=== PATIENT | female | born 2000 | race Caucasian/White ===

== ENCOUNTER → 2023-02-19 | Outpatient (CLI) | payer OTHER, SELFPAY ==
--- NOTE | 2023-02-19 08:02 | US_ITS ---
STUDY: SECOND AND THIRD TRIMESTER OBSTETRICAL ULTRASOUND REASON FOR EXAM: Female, 22 years old anatomy LMP: September 17, 2022. TECHNIQUE: Transabdominal and Transvaginal TECHNICAL QUALITY: Adequate. PRIOR ULTRASOUND: None. FINDINGS: There is a single intrauterine fetus. The fetus is in a breech presentation. There is demonstrated cardiac activity with a heart rate of 135 bpm. There is a normal amniotic fluid volume. The largest amniotic fluid pocket measures 5.7 cm. The amniotic fluid index (SUNITA) is within normal limits. The placenta is anterior in location and is not low lying. There are Grade 0 placental changes. The cervix measures 3.3 cm in length. The bilateral adnexal regions are normal. BIOMETRY: BPD: 5.12 cm: 21 weeks, 4 days HC: 20.04 cm: 22 weeks, 1 days AC: 18.25 cm: 23 weeks, 1 days FL: 3.88 cm: 22 weeks, 3 days CI: 71% FL/BPD: 76% FL/HC: FL/AC: 21% HC/AC: 1.1 age by current US: 22 weeks, 1 days. THEODORA by current US: June 24, 2023. Estimated weight: 524 grams, +/- 79 grams, 70 %. Age by LMP: 22 weeks, 1 days. THEODORA by LMP: June 24, 2023. ANATOMY: Gender: Male Cranium: Normal lateral ventricles. Normal choroid plexus. Normal cerebellum. Normal cisterna magna. Normal face, nose and lips. Chest: Normal 4-chamber heart. Abdomen/Pelvis: Normal diaphragm. Normal stomach. Normal abdominal wall. Normal cord insertion. Normal 3 vessel cord. Normal kidneys. Normal bladder. Spine: Normal cervical spine. Normal thoracic spine. Normal lumbar spine. Normal sacrum. Extremities: Normal bilateral upper extremities. Normal bilateral lower extremities. US/OB Anatomy Scan IMPRESSION: Single live uterine gestation with a mean gestational age of 22 weeks and 1 day. Electronically Signed: Leland Solares MD at 10:35 EST ,
== END | disposition home or self-care (01) ==
LOC: US 08:01
PROVIDERS: Referring Provider Obstetrics & Gynecology; Visit Provider Obstetrics & Gynecology
DX: Z34.00 Encounter for supervision of normal first pregnancy, unspecified trimester (principal)
CPT/HCPCS: 76805; 76817

== ENCOUNTER → 2023-04-02 | Outpatient (CLI) | payer OTHER, SELFPAY ==
[2023-04-02 10:40] LABS: Absolute Lymphocyte Count 1.53 X10^3/uL (0.83-4.51); Absolute Neutrophil Count 9.2 X10^3/uL (2.0-7.7); Basophil# 0.04 X10^3/uL; Basophil% 0.3 % (0-1); Eosinophil# 0.11 X10^3/uL; Eosinophils% 0.9 % (0-5); Hematocrit 35.3 % (37-47); Lymphocyte # 1.53 X10^3/ul (0.83-4.51); Lymphocyte % 12.8 % (19-41); Mean Corpuscular Hgb 32.3 pg (27.0-32.0); Mean Corpuscular Volume 95.1 fL (81-99); Mean Platelet Vol. 8.2 fl (6.2-12.0); Monocyte# 0.93 X10^3/uL; Monocyte% 7.8 % (0-10); NRBC Flagged by Analyzer 0 % (0-5); Neutrophil # 9.24 X10^3/uL (2.7-7.7); Neutrophil % 77.3 % (47-70); Platelet Count 225 K/mm3 (150-450); RBC Distribution Width CV 12.6 % (11.6-14.6); RBC Distribution Width SD 43.7 fl (35.1-43.9); Red Blood Count 3.71 M/mm3 (4.2-5.4)
[2023-04-02 10:49] LABS: Glucose Challenge Gest 1H 50g 91 mg/dL (70-140)
[2023-04-02 11:36] LABS: HIV - WCH Non-Reactive (Nonreactive); Syphilis Antibodies Non-reactive
== END | disposition home or self-care (01) ==
LOC: PAVLAB 10:18
PROVIDERS: Referring Provider Obstetrics & Gynecology; Visit Provider Obstetrics & Gynecology
DX: Z34.00 Encounter for supervision of normal first pregnancy, unspecified trimester (principal)
CPT/HCPCS: 36415; 82950; 85025; 86703; 86780; 86850; 86900; 86901

== ENCOUNTER → 2023-04-16 | Outpatient (CLI) | payer OTHER, SELFPAY ==
[2023-04-16 13:01] LABS: Hepatitis B Surface Antigen Non-Reactive (Nonreactive); Hepatitis C Antibody Non-Reactive (Nonreactive); Rubella IgG Reactive (Nonreactive)
== END | disposition home or self-care (01) ==
LOC: PAVLAB 10:52
PROVIDERS: Referring Provider Nurse Practitioner Women's Health; Visit Provider Nurse Practitioner Women's Health
DX: Z34.00 Encounter for supervision of normal first pregnancy, unspecified trimester (principal)
CPT/HCPCS: 36415; 86762; 86803; 87340

== ENCOUNTER → 2023-05-29 | Outpatient (CLI) | payer OTHER, SELFPAY ==
--- OUTSIDE RECORDS SUMMARY | 2023-05-29 11:33 | XMS RPT_ITS | CCD ---
Author Name Unknown Address [address] [facility] [address] [place] [address] Organization [facility] Care Team Providers Care Broker Associate Name Role Phone Unavailable Primary Care Provider UnavailMARYBEL Rincon Attending Unavailable MARYBEL SUGGS Referring Unavailable STEPHAN DUGGAN Attending Unavailable ANA TORRE Attending Unavailable Medications Current Medications Medication Drug Class(es) Dates Sig (Normalized) Sig (Original) MV-Min-Fe Fum-FA-DHA ( 1 PO) (3 sources) MV-Min- Fe Fum-FA-DHA ( 1 PO) Take by mouth. 0 Active Problems Active Problems Problem Classification Problem Date Documented Da te Episodic/Chronic Menstrual disorders (3 sources) Amenorrhea; Translations: [Amenorrhea, unspecified] Onset: 10-21-2022 10-21-2022 Chronic Other complications of (1 source) Nausea and vomiting; Translations: [Vomiting of , unspecified] 11-21-2022 Episodic Unclassified (2 sources) OB Reminders Onset: 11-22-2022 11-22-2022 Unclassified (2 sources) Patient Stated Goal Onset: 11-22-2022 11-22-2022 Past or Other Problems Problem Classification Problem Date Documented Da te Episodic/Chronic Mood disorders (2 sources) Mood disorders Onset: 11-22-2022 11-22-2022 Other and delivery including normal (12 sources) Gestational age unknown ; Translations: [Encounter for supervision of normal , unspecified, unspecified trimester] Onset: 11-21-2022 10-21-2022 Episodic Other screening for suspected conditions (not mental disorders or infectious disease) (3 sources) Patient encounter status; Translations: [Encounter for screening for other disorder] Onset: 12-19-2022 12-19-2022 Episodic Residual codes; unclassified (2 sources) Gestation period, 10 weeks; Translations: [10 weeks gestation of ] Onset: 11-21-2022 11-21-2022 Episodic Residual codes; unclassified (2 sources) Gestation period, 13 weeks; Translations: [13 weeks gestation of ] Onset: 12-19-2022 12-19-2022 Episodic Residual codes; unclassified (1 source) 13 weeks gestation of ; Translations: [13 weeks gestation of ] Onset: 12-19-2022 Episodic Residual codes; unclassified (1 source) 10 weeks gestation of ; Translations: [10 weeks gestation of ] Onset: 11-21-2022 Episodic Results Test Name Value Interpretation Reference Range Facil ity Vital Signs Date Time Vital Sign Value Performing Clinician Kalyani lity 12-19-2022 15:28-0400 Body mass index (BMI) [Ratio] 24.56 kg/m2 Stephan Saffell EARTH SCIENCE PROFESSOR - IT ARCHITECTURE CONSULTANT Work Phone: [employer] [facility] 12-19-2022 15:28-0400 Body weight 66.95 kg Stephan Saffell EARTH SCIENCE PROFESSOR - IT ARCHITECTURE CONSULTANT Work Phone: [employer] [facility] 12-19-2022 15:28-0400 Diastolic blood pressure 65 mm[Hg] Stephan Saffell EARTH SCIENCE PROFESSOR - IT ARCHITECTURE CONSULTANT Work Phone: [employer] [facility] 12-19-2022 15:28-0400 Heart rate 75 /min Stephan Saffell EARTH SCIENCE PROFESSOR - IT ARCHITECTURE CONSULTANT Work Phone: [employer] [facility] 12-19-2022 15:28-0400 Systolic blood pressure 124 mm[Hg] Stephan Mercantilall EARTH SCIENCE PROFESSOR - IT ARCHITECTURE CONSULTANT Work Phone: [employer] [facility] 11-21-2022 13:54-0400 Body height 165.1 cm Ana [place] PA Work Phone: [employer] [facility] 11-21-2022 13:37-0400 Body mass index (BMI) [Ratio] 23.3 kg/m2 Ana [place] PA Work Phone: [employer] [facility] 11-21-2022 13:37-0400 Body weight 63.5 kg Ana [place] PA Work Phone: [facility] 11-21-2022 13:37-0400 Diastolic blood pressure 60 mm[Hg] Ana Torre PA Work Phone: [facility] 11-21-2022 13:37-0400 Heart rate 60 /min Ana Vaughank PA Work Phone: [facility] 11-21-2022 13:37-0400 Systolic blood pressure 108 mm[Hg] Ana Torre PA Work Phone: [facility] Encounters Encounter Date Encounter Type Care Provider Facility Start: 04-02-2023 Telephone encounter Stephan moise EARTH SCIENCE PROFESSOR - IT ARCHITECTURE CONSULTANT Work Phone: [facility] Procedures Date Procedure Procedure Detail Performing Clinician Start: 11-22-2022 Adult depression scr eening assessment Stephan Duggan EARTH SCIENCE PROFESSOR - IT ARCHITECTURE CONSULTANT Work Phone: Start: 11-21-2022 Microscopic observat ion [Identifier] in Cervix by Cyto stain Stephan Duggan EARTH SCIENCE PROFESSOR - IT ARCHITECTURE CONSULTANT Work Phone: Plan of Treatment Date Care Activity Detail Author Start: 2050 Zoster Vaccines (1 of 2) Zoster Vacc sarah (1 of 2) [facility] Start: 11-21-2025 Screening for malign ant neoplasm of cervix Pap Smear [facility] Start: 11-23-2023 Depression Screening Depression Scre ening [facility] Start: 11-22-2023 Screening for Chlamy peterson trachomatis Chlamydia and Gonorrhea Screening [facility] Start: 11-19-2023 DTaP/Tdap/Td Vaccine s (7 - Td or Tdap) DTaP/Tdap/Td Vaccines (7 - Td or Tdap) [facility] Start: 01-29-2023 End: 01-29-2023 Patient encounter procedure [facility] Start: 01-06-2023 End: 01-06-2023 Patient encounter procedure 01/06/2023 3:00 PM EDT Routine [facility] [address] [place] [address] Saffell, Stephan, EARTH SCIENCE PROFESSOR - IT ARCHITECTURE CONSULTANT [address] [place] [address] [facility] Start: 12-19-2022 End: 12-19-2022 Patient encounter procedure 12/19/2022 3:20 PM EDT Routine [facility] [address] [place] [address] Stephan Duggan APRN - IT ARCHITECTURE CONSULTANT [address] [place] [address] [facility] Start: 12-19-2022 End: 12-20-2023 US for US OB 14+ weeks anatomy scan Imaging Routine Encounter for routine screening for malformation using ultrasonics Expected: 12/19/2022, Expires: 12/20/2023 [facility] Work Phone: Immunizations Immunization Date Immunization Notes Care Provider Fa [facility] 02-22-2020 influenza virus vacc ine, unspecified formulation Marybel GODINEZ Work Phone: [facility] Payers Date Payer Category Payer Unknown [employer] [id number] 2022-Present [address] [place] [address] Commercial [id number] 2022 Unknown [id number] 2022 Private Health Insurance ASHLEY ZHENG [id number] 2022-Present [address] [place] [address] Commercial [id number] 2022 Private Health Insurance [id number] Social History Date Type Detail Facility Start: 10-21-2022 Tobacco smoking status NHIS Never sm oked tobacco [facility] Start: 10-21-2022 Tobacco use and exposure Smokeless t obacco non-user [facility] Start: 10-21-2022 End: 12-19-2022 Alcohol intake Lifetime non-drinker (finding) [facility] Start: 10-21-2022 End: 12-19-2022 History of Social function [facility] Start: 10-21-2022 End: 12-19-2022 Tobacco use panel [facility] Start: 2000 Sex Assigned At Not on file [facility] Start: 10-01-2022 [facility] Start: 11-11-2022 End: 12-19-2022 Exposure to SARS-CoV-2 (event) Not sure [facility] Goals Date Patient Goal Desired Activity /State Personal health goal Clinical Notes 03-12-2021 to 04-02-2023 Telephone Encounter - Black Perales MA - 04/02/2023 3:20 PM ESTTelephone Encounter - Black Preales MA - 04/02/2023 3:20 PM ESTTelephone Encounter - Jael Marley - 04/02/2023 2:52 PM EST Note Date & Type Note Facility 04-02-2023 Telephone encounter Note Lab results refaxed. [facility] 04-02-2023 Miscellaneous Notes Lab results refaxed. Name of caller: Archana Contact phone number: [phone] Relationship to Patient: [facility] Provider: Stephan Duggan Practice: [facility] Chief Complaint/Reason for Call: Archana states records were rec'd for pt but they need actual lab results. Please fax to [phone] Best time of day caller can be reached: Any Patient advised that office/PCP has 24-48 business hours to return their call: Yes documented in this encounter [facility] 04-02-2023 Telephone encounter Note Name of caller: Archana Contact phone number: [phone] Relationship to Patient: [facility] Provider: Stephan Duggan Practice: [facility] Chief Complaint/Reason for Call: Archana states records were rec'd for pt but they need actual lab results. Please fax to [phone] Best time of day caller can be reached: Any Patient advised that office/PCP has 24-48 business hours to return their call: Yes [facility] 12-19-2022 Evaluation + Plan note Associated Problem(s): care, antepartum Advised patient to contact the office with any vaginal bleeding, pelvic pain or N/V. RH+ Reviewed labs Did not have genetic testing done DAWNA 3 weeks [facility] 12-19-2022 Miscellaneous Notes Associated Problem(s): care, antepartum Advised patient to contact the office with any vaginal bleeding, pelvic pain or N/V. RH+ Reviewed labs Did not have genetic testing done DAWNA 3 weeks documented in this encounter [facility] 12-19-2022 History of Presen t illness Narrative PLAN: care, antepartum Advised patient to contact the office with any vaginal bleeding, pelvic pain or N/V. RH+ Reviewed labs Did not have genetic testing done DAWNA 3 weeks ASSESSESMENT: Diagnosis Plan 1. care in second trimester 2. Encounter for routine screening for malformation using ultrasonics US OB 14+ weeks anatomy scan US OB transvaginal 3. 13 weeks gestation of She is here for 13w2d OB visit. Denies cramping, leaking of fluid, or bleeding. Noticed skin tag on breast. No pain, drainage skin changes or signs of infection PHYSICAL EXAM: BP 124/65 Pulse 75 Wt 147 lb 9.6 oz (67 kg) LMP 09/17/2022 (Exact Date) BMI 24.56 kg/m I have reviewed her pertinent history, lab results, medications and problem list. See episode for any changes. Well appearing, Alert & oriented Skin warm & dry Right breast with small probable skin tag noted at 6:00 on areola. Normal range of motion in all extremities. Abdomen soft nontender Normal resp effort HOLDEN Winn CNP 12/19/22 Follow up in about 3 weeks (around 01/09/2023) for DAWNA. documented in this encounter [facility] 11-21-2022 History of Presen t illness Narrative HISTORY OF PRESENT ILLNESS: Presents today for initial OB appointment at 10w1d, Patient's last menstrual period was 09/17/2022 (exact date)., dating ultrasound completed and preliminary result reviewed with patient. D&V ultrasound results: Single, live IUP, 10 w 1 d by ultrasound. Cardiac activity and movement are present. This is consistent with the EDC of 06/24/23. Probable right corpus luteum. 2.2 x 1.8 x 1.7 cm Follow up as clinically indicated. Patient is scheduled to see Ana AVILES following ultrasound. [id number] Varicella or vaccinated for varicella as a child: yes. Cats: yes. If yes, litter box precautions given. Desires tubal ligation: no. Plans to breastfeed. 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 Pt desires Noninvasive Testing (NIPT): yes Pt desires sex with testing: yes Carrier Screening option reviewed: Pt desires Carrier Screening: no Indications for Baby Aspirin High Risk Indication: [] History of Preeclampsia [] Multifetal gestation [] Chronic HTN [] Pregestational Type 1 or 2 Diabetes [] Renal Disease [] Autoimmune Disease (i.e., SLE, APLS) Two Moderate Risk Indication: [x] Nulliparity [] Obesity (BMI > 30) [] Family history of preeclampsia (ie, mother or sister) [] Race [] Low SES [] Age 35 years or older [] Personal history factors (eg, low weight or small for gestational age, previous adverse outcome, >10-year interval) [] In vitro fertilization ASA prescribed: No, Not Indicated Body mass index is 23.3 kg/m . If BMI is 30 or over, history of gestational diabetes, or insulin resistance then early GCT ordered. REVIEW OF SYSTEMS: Constitutional: Negative for fever, positive for fatigue Respiratory: Negative for shortness of breath Breast: positive breast tenderness Cardiovascular: Negative for chest pain GI: positive for nausea and vomiting negative for abdominal pain, constipation, and diarrhea : Denies vaginal bleeding, discharge, LOF. Denies dysuria. MEDICATIONS: Current Outpatient Medications Medication Sig Dispense Refill MV-Min-Fe Fum-FA-DHA ( 1 PO) Take by mouth. No current facility-administered medications for this visit. ALLERGIES: Patient has no known allergies. OB History Para Term AB Living 1 0 0 0 0 0 SAB IAB Ectopic Multiple Live Births 0 0 0 0 0 # Outcome Date GA Lbr Zurdo/2nd Weight Sex Delivery Anes PTL Lv 1 Current History reviewed. No pertinent past medical history. History reviewed. No pertinent surgical history. Family History Problem Relation Name Age of Onset Diabetes Paternal Grandfather Ovarian cancer Paternal Grandmother Breast cancer Neg Hx Colon cancer Neg Hx Social History Socioeconomic History Marital status: Spouse name: Not on file Number of children: Not on file Years of education: Not on file Highest education level: Not on file Occupational History Not on file Tobacco Use Smoking status: Never Smokeless tobacco: Never Vaping Use Vaping Use: Never used Substance and Sexual Activity Alcohol use: Never Drug use: Never Sexual activity: Not on file Other Topics Concern Not on file Social History Narrative Not on file Social Determinants of Health Financial Resource Strain: Not on file Food Insecurity: Not on file Transportation Needs: Not on file Physical Activity: Not on file Stress: Not on file Social Connections: Not on file Intimate Partner Violence: Not on file Housing Stability: Not on file PHYSICAL EXAM: Vital Signs: BP 108/60 Pulse 60 Ht 5' 5 (1.651 m) Wt 140 lb (63.5 kg) BMI 23.30 kg/m CONSTITUTIONAL: Oriented to person, place and time. Patient appears well-developed and well nourished. PSYCHIATRIC: Normal mood and affect. Behavior is normal. NEUROLOGICAL: No gross motor or sensory deficits noted. NECK: No thyromegaly, supple. HEART: Regular rate and rhythm LUNGS: Clear to auscultation, no crackles or wheezes, normal respiratory effort. BREASTS: Normal, no masses, tenderness or skin changes B/L SKIN: Warm and dry ABDOMEN: Soft, non-tender, non-distended. No rebound or guarding. LYMPH NODES: No lymphadenopathy in neck, axilla and groin. EXTREMITIES: No edema. EXTERNAL GENITALIA: Normal. VAGINA: Normal, no lesions. clear and thin noted CERVIX: Normal, no CMT UTERUS: gravid 10 weeks size, non-tender ADNEXA: No tenderness, no masses noted URETHRAL MEATUS: Normal, no irritation present. BLADDER: Non tender. ASSESSMENT: Patient Active Problem List Diagnosis Date Noted care, first trimester 11/21/2022 Priority: Medium Overview Note: 1.Datin06/24/2023, by Last Menstrual Period 2.Blood type: 3. Aneuploidy screen: 4.Carrier screen: 5.Anatomy USN: 6.Flu shot: 7.Tdap: 8.PPBC: 9. COVID vaccine: DIAGNOSIS: Carlitos was seen today for initial visit. Diagnoses and all orders for this visit: Nausea and vomiting in (Primary) care, first trimester - Pap Smear - RPR; Future - Hepatitis B surface antigen; Future - Hemoglobinopathy evaluation; Future - Urine culture - HIV-1 and HIV-2 Antigen-Antibody Screen; Future - CBC; Future - Hepatitis C antibody; Future - Chlamydia/Gonorrhea - RPR - Hepatitis B surface antigen - Hemoglobinopathy evaluation - HIV-1 and HIV-2 Antigen-Antibody Screen - CBC - Hepatitis C antibody 10 weeks gestation of - Pap Smear - RPR; Future - Hepatitis B surface antigen; Future - Hemoglobinopathy evaluation; Future - Urine culture - HIV-1 and HIV-2 Antigen-Antibody Screen; Future - CBC; Future - Hepatitis C antibody; Future - Chlamydia/Gonorrhea - RPR - Hepatitis B surface antigen - Hemoglobinopathy evaluation - HIV-1 and HIV-2 Antigen-Antibody Screen - CBC - Hepatitis C antibody PLAN: New OB labs and cultures ordered. Lab Locations reviewed. [facility] Services guide given. New OB education given on AVS including: Medication list, food safety information, and OB Calendar. Early GCT candidate: no All questions were answered. Follow up in about 4 weeks (around 12/19/2022) for STEFAN Mckinney Patient was seen with total face to face time of 25 minutes. More than 50% of this visit was counseling and education regarding her diagnoses and chief complaint. documented in this encounter [facility] 11-21-2022 Instructions STEFAN Krause - 11/21/2022 1:30 PM EDT Obstetrical Calendar Weeks Gestation: Discussion and Testing 4-8 weeks - Visit with provider to establish hcg blood levels and order ultrasound. 6-13 Weeks - Dating and Viability Ultrasound and Visit with provider to discuss US results. 10-13 weeks - Initial OB intake and physical with a Industrial Maintenance Mechanic or Nurse Practitioner. Obtain complete medical, genetic and obstetrical history blood work ordered education Discuss testing options: 1st trimester screening (provides a more accurate assessment of a woman s risk for carrying a baby with Down Syndrome, Trisomy 13 and Trisomy 18. Carrier Screening for Cystic Fibrosis, Spinal Muscular Atrophy or Fragile x. AFP for Neural Tube Defect. Other tests if appropriate due to risk factors. Discuss Physician and Nurse Industrial Maintenance Mechanic options Discuss hospital for delivery 10-14 Weeks - Visit with OB Provider Review Results of Labs Discuss 1st Trimester Screening or Free Cell DNA if you wish to pursue Discuss indications or need for MFM referral if High Risk, or if need for Amniocentesis or CVS (Chorionic villus sampling) test to diagnose chromosomal abnormalities At Each visit - Check Blood pressure, Check urine, check weight and heart tones as indicated 12-16 weeks - Visit with OB Provider Discuss 2nd trimester screening if desired Check blood pressure, urine, weight and heart tones Review OB provider options Schedule anatomy US for 18-20 weeks 18-20 weeks - Anatomy US and Visit with Provider Check weight, blood pressure and urine Listen to heart beat and check uterine size Review results of anatomy US 22-24 weeks - Visit with OB Provider Check weight, blood pressure and urine Listen to heart beat and check uterine size Discuss 1 hour glucose test for gestational diabetes Order blood work for anemia and glucose test to be done around 26-28 weeks Order Antibody screen and rhogam IF Rh negative blood type 26-28 weeks - Visit with OB Provider Check weight, blood pressure and urine Listen to heart beat and check uterine size Review results of glucose test and anemia test if done Discuss plans, preregistration, choosing paving inspector, taking childbirth classes 30 - 36 weeks - Visits with OB provider every 2 weeks Check weight, blood pressure and urine Listen to heart beat and check uterine size High risk testing, if needed, will begin weekly - Please schedule all of theses ahead of time. Discuss circumcision, breast feeding, preregistration. Discuss plans, consider CNM or physician for delivery. 36-40 weeks - Visits with Ob provider every week Check weight, blood pressure and urine Listen to heart beat and check uterine size Obtain vaginal/rectal culture for Group B Strep Cervical exam 41 weeks - Visit with OB provider Discuss option for post term testing with Non-Stress test and SUNITA Discuss and schedule induction of labor prior to 42 weeks Food Safety in The following tips will help keep your food safe from harmful bacteria. For more information, visit foodsafety.gov. Keep things clean Wash your hands well before and after handling food. Always wash your hands after using the bathroom, changing diapers or handling pets. Wash fruits and vegetables under running water before eating. Wash utensils, dishes, cutting boards, counters and sinks with hot, soapy water after they come in contact with raw meat, poultry, seafood, eggs or unwashed fresh produce. Clean up spills in your refrigerator right away. Look at expiration dates on containers. Once a week throw away food that should no longer be eaten. Keep things Keep raw meat, poultry and seafood separate from other items in your grocery cart and refrigerator. Put uncooked meat, poultry and fish in sealed containers or plastic bags when storing them in the refrigerator. Use one cutting board for raw meats and a different one for fruits and vegetables. Place cooked meat, poultry and seafood on a clean plate. Do not reuse a plate that held the raw food. Keep things chilled Keep your refrigerator at 40 F or below and your freezer at zero F or below. Refrigerate food quickly. Cold temperatures keep most harmful bacteria from multiplying. Refrigerate perishable foods within two hours of purchase. (Refrigerate within one hour if the temperature is more than 90 F.) Refrigerate or freeze prepared foods and leftovers within two hours (within one hour if the temperature is more than 90 F). Use shallow containers for quicker cooling. Don't overpack the refrigerator; leave room for the cold air to circulate. Never thaw foods on the counter. Thaw foods in the refrigerator, in cold water, or in a microwave. Cook things well Use a clean, quick-read food thermometer to determine the temperature of foods. Cook foods until they have reached the proper temperature: roast beef, steaks, pork chops or roast to at least 145 F ground beef to at least 160 F ground turkey, chicken breasts or whole poultry to at least 165 F fish until it's opaque and flakes easily with a fork (145 F) eggs until the yolks and whites are firm egg dishes to 160 F Reheat leftovers to 165 F. Other tips to prevent food-related illness Listeria is a kind of bacteria that can contaminate foods and cause an infection called listeriosis. This is a serious illness that can cause premature labor or to a developing or baby. To reduce your risk of listeriosis: Make sure all milk and milk products are pasteurized. Do not eat unpasteurized soft cheeses such as feta, Brie, Camembert, blue-veined cheeses and [place] Islander-style cheeses. Limit deli foods like prepared salads or cheeses. Reheat hot dogs, lunch meats and deli meats until they are steaming hot. Do not eat refrigerated p t or meat spreads. (Canned or shelf-stable spreads are fine.) Only eat refrigerated smoked seafood as an ingredient in a cooked dish, such as a casserole. Reheat pre-cooked, take-home meals to 165 F. Choosing fish wisely Fish is a good source of protein, contains fatty acids, and is low in saturated fat. However, any fish (store-bought or fresh-caught) could contain contaminants such as mercury or PCBs that can harm a developing baby. It's best to vary the kind of fish you eat and limit the amount of fish you eat to one to two meals a week. The amount of fish in a meal depends on your body weight. If you weigh 150 pounds, you could safely eat one-half pound (8 ounces) of fish (precooked weight). To adjust the amount of fish, subtract or add one ounce of fish for every 20 pounds of body weight: If you weigh 130 pounds, eat 7 ounces of fish. If you weigh 150 pounds, eat 8 ounces of fish. If you weigh 170 pounds, eat 9 ounces of fish. Tips to help you choose fish Avoid brad mackerel, swordfish, tilefish, marlin, orange roughy, and shark. These are large, salt-water fish most likely to have high levels of mercury. Avoid eating these locally caught fish: walleye larger than 20 inches, northern pike larger than 30 inches, and all muskellunge (muskies). Limit eating canned albacore tuna to one 6-ounce meal a month. Light tuna is a smaller fish and less likely to have high levels of mercury. Eat up to two meals a week of farm-raised or wild salmon from the [place] or [place], not from the [place]. Avoid raw fish, sushi and sashimi because it could contain harmful bacteria. Caffeine We don t know a lot about the effects of caffeine during on you and your baby. So it s best to limit the amount you get each day. If you re , limit caffeine to 200 milligrams each day. This is about the amount in 1 8-ounce cups of coffee or one 12-ounce cup of coffee. If you re , limit caffeine to no more than two cups of coffee a day. F Information from June Genetic Screening Tests What is genetic testing? genetic testing gives [id number] information about whether their fetus has certain genetic disorders. What are genetic disorders? Genetic disorders are caused by changes in a person s genes or chromosomes. Aneuploidy is a condition in which there are missing or extra chromosomes. In a trisomy, there is an extra chromosome. In a monosomy, a chromosome is missing. Inherited disorders are caused by changes in genes called mutations. Inherited disorders include sickle cell disease, cystic fibrosis, Erickson-Sachs disease, and many others. In most cases, both parents must carry the same gene to have an affected child. What are genetic screening tests? These tests can tell you the chances that your fetus has an aneuploidy and a few additional disorders. This FAQ focuses on these tests. What are the different types of genetic screening tests? Screening tests can tell you your risk of having a baby with certain disorders. They include carrier screening and genetic screening tests: Carrier screening is done on parents (or those just thinking about becoming parents) using a blood sample or tissue sample swabbed from inside the cheek. These tests are used to find out whether a person carries a gene for certain inherited disorders. Carrier screening can be done before or during . genetic screening tests of the woman s blood and findings from ultrasound exams can screen the fetus for aneuploidy; defects of the brain and spine called neural tube defects; and some defects of the abdomen, heart, and facial features. This focuses on these tests. They include first-trimester screening and second-trimester screening What is first-trimester screening? Aneupoidy screening or NIPT (non-invasive testing) is done with maternal blood taken sometime after 12weeks 4 days. This test helps determine the risk for trisomy 21, trisomy 13 and trisomy 18. It also detects abnormalities of the sex chromosomes such as monosomy X and Turners syndrome. What do the different results of screening tests mean? Results of blood screening tests for aneuploidy are reported as the level of risk that the disorder might be present: A positive screening test result for aneuploidy means that your fetus is at higher risk of having the disorder compared with the general population. It does not mean that your fetus definitely has the disorder. A negative result means that your fetus is at lower risk of having the disorder compared with the general population. It does not rule out the possibility that your fetus has the disorder. What should I consider when deciding whether to have genetic testing? It is your choice whether to have testing. Your personal beliefs and values are important factors in the decision about testing. It can be helpful to think about how you would use the results of screening tests in your care. Remember that a positive screening test tells you only that you are at higher risk of having a baby with Down syndrome or another aneuploidy. A diagnostic test should be done if you want to know a more certain result. Some parents want to know beforehand that their baby will be born with a genetic disorder. This knowledge gives parents time to learn about the disorder and plan for the medical care that the child may need. Some parents may decide to end the in certain situations. Other parents do not want to know this information before the child is born. In this case, you may decide not to have follow-up diagnostic testing if a screening test result is positive. Or you may decide not to have any testing at all. There is no right or wrong answer. Glossary Amniocentesis: A procedure in which a needle is used to withdraw and test a small amount of amniotic fluid and cells from the sac surrounding the fetus. Aneuploidy: Having an abnormal number of chromosomes. Carrier Screening: A test done on a person without signs or symptoms to find out whether he or she carries a gene for a genetic disorder. Chorionic Villus Sampling (CVS): A procedure in which a small sample of cells is taken from the placenta and tested. Cystic Fibrosis: An inherited disorder that causes problems in digestion and breathing. Down Syndrome: A genetic disorder that causes abnormal features of the face and body, medical problems such as heart defects, and intellectual disability. Most cases of Down syndrome are caused by an extra chromosome 21 (trisomy 21). Many children with Down syndrome live to adulthood. Monosomy: A condition in which there is a missing chromosome. Neural Tube Defects: defects that result from incomplete development of the brain, spinal cord, or their coverings. Nuchal Translucency Screening: A test in which the size of a collection of fluid at the back of the neck is measured by ultrasound to screen for certain defects, such as Down syndrome, trisomy 18, or heart defects. Screening Tests: Tests that look for possible signs of disease in people who do not have symptoms. Sickle Cell Disease: An inherited disorder in which red blood cells have a crescent shape, causing chronic anemia and episodes of pain. It occurs most often in Americans. Erickson-Sachs Disease: An inherited defect that causes intellectual disability, blindness, seizures, and , usually by age 5 years. It most commonly affects people of [place] and [place], [place], and [place] descent, but it can occur in anyone. Trisomy 13 (Patau Syndrome): A chromosomal disorder that causes serious problems with the brain and heart as well as extra fingers and toes, cleft palate and lip, and other defects. Most infants with trisomy 13 within the first year of life. Trisomy 18 (Dueñas Syndrome): A chromosomal disorder that causes severe intellectual disability and serious physical problems such as a small head, heart defects, and deafness. Most of those affected with trisomy 18 before or within the first month of life. Copyright October 2016 by the [employer] ========= Panorama NIPT Screen Information As an expectant parent, you may want to learn everything you can about the health of your baby. The Panorama Screen checks for the most common chromosomal disorders, such as Down syndrome, Trisomy 18 and Trisomy 13 that could affect your baby s health. This noninvasive test requires only a blood draw, so it s safe for both mom and baby. This test looks at DNA from the that crosses into the mother s blood to screen for chromosomal disorders that can cause serious defects, intellectual disability, or other health problems. Any baby can be born with a chromosome disorder, which is usually caused by a random error of cell division very early in . As women get older, the chance of having a baby with a chromosome disorder goes up. However, young women can have babies with these conditions. How does noninvasive testing work? DNA is the blueprint of life. It carries all of the genetic information needed for our bodies to function. A section of DNA with a specific job is called a gene. DNA is packaged into bundles called chromosomes. Healthy humans have 23 pairs of chromosomes. Any more or less can lead to problems. DNA from the placenta naturally crosses into the mother s bloodstream as a progresses. For the test, a small sample of your blood is drawn and the DNA is analyzed to check for certain chromosomal disorders, which can cause serious defects, intellectual disability, or other health problems in the baby. What conditions can this test detect? Down syndrome (trisomy 21) is caused by an extra copy of chromosome 21. It affects about 1 in 700 newborns,and is the most common genetic cause of mild to moderate intellectual disability. Children with trisomy 21 commonly have typical facial features, and a higher risk for certain health problems, including heart defects, other defects, and hearing and vision problems. Dueñas syndrome (trisomy 18) is caused by an extra copy of chromosome 18. It affects about 1 in 5,000 newborns. Children with trisomy 18 may have severe intellectual disability along with serious defects of the heart, brain, and other organs and usually survive less than one year. It is common for pregnancies with trisomy 18 to end in miscarriage or stillbirth. Patau syndrome (trisomy 13) is caused by an extra copy of chromosome 13. It affects about 1 in 16,000 newborns. Children with trisomy 13 may have severe intellectual disability and many serious defects (heart defects, extra fingers, cleft lip and palate, brain and abdominal wall defects) and usually survive less than one year. It is common for pregnancies with trisomy 13 to end in miscarriage or stillbirth. Bermudez syndrome (monosomy X)* is caused by a missing X chromosome in females. It affects about 1 in 2,000 female newborns. Girls with monosomy X commonly have heart defects, growth delays, infertility and may have minor learning difficulties. It is common for pregnancies with monosomy X to end in miscarriage or stillbirth. Klinefelter syndrome (XXY)* is caused by an extra X chromosome in males. It affects between 1 in 500 and 1 in 1,000 males. Children with Klinefelter syndrome commonly have delayed or absent puberty, learning difficulties, and tall stature. Most males with Klinefelter syndrome are infertile. XYY syndrome or XXX syndrome* are caused by an extra Y chromosome in males (XYY) or an extra X chromosome in females (XXX). It affects about 1 in 1,000 newborns. Children with XYY syndrome can have tall stature and an increased risk for learning difficulties or delayed motor skills. Fertility is not usually affected and some individuals have no symptoms at all. DiGeorge syndrome (22q11.2 deletion) is caused by a small missing piece of chromosome 22. It affects from 1 in 2,000 to 1 in 4,000 newborns, and is often not diagnosed for years. It results in poor development in several body systems, and can include growth delays, feeding problems, congenital heart disease, gastrointestinal difficulties, breathing concerns, immune deficiencies, and many other issues. Early diagnosis is the richardson to properly addressing the issues. * May be included in the test. Cannot be evaluated in twin pregnancies. screening helps you prepare for life While most babies are born healthy, some will be born with a chromosomal disorder. Knowing about the health of the baby during allows you to make the most informed choices for your family. This information can help guide the management of the , and could also give you critical time to prepare--physically, financially, and emotionally--for the of a child with extra needs. Carrier Screening What is carrier screening? Carrier screening is a type of genetic test that can tell you whether you carry a gene for certain genetic disorders. When it is done before or during , it allows you to find out the chances of having a child with a genetic disorder. What is a carrier? For some genetic disorders, it takes two genes for a person to have the disorder. A carrier is a person who has only one gene for a disorder. Carriers usually do not have symptoms or have only mild symptoms. Because they often do not know that they have a gene for a disorder, they can pass the gene on to their children. What are the chances of having a child with a genetic disorder? If both parents are carriers of a recessive gene for a disorder, there is a 25% (1-in-4) chance that their children will get the gene from each parent and will have the disorder. There is a 50% (1-in-2) chance that the children will be carriers of the disorder--just like the carrier parents. If only one parent is a carrier, there is a 50% (1-in-2) chance that the child will be a carrier of the disorder. How is carrier screening done? Carrier screening involves testing a sample of blood, saliva, or tissue from the inside of the cheek. Test results can be negative (you do not have the gene) or positive (you do have the gene). Typically, the partner who is most likely to be a carrier is tested first. If test results show that the first partner is not a carrier, then no additional testing is needed. If test results show that the first partner is a carrier, the other partner is tested. Once you have had a carrier screening test for a specific disorder, you do not need to be tested again for that disorder. When hard candy batch mixer screening be done? Some people decide to have carrier screening before having children. Carrier screening also can be done during . Getting tested before gives you a greater range of options and more time to make decisions. Do I have to have carrier screening? Carrier screening is a voluntary decision. You can choose to have carrier screening, or you can choose not to. There is no right or wrong choice. What carrier screening tests are available? We offer a carrier screening panel for 14 diseases. This test is called Horizon If you re an expectant parent, or thinking about starting a family, you probably want to do everything you can to prepare. This test provides a closer look at your genes, to see if you are at risk of passing a hereditary genetic disorder to your child. The Panel checks for carrier status of three of the most common genetic disorders that can cause serious health problems, intellectual disability, or a shorter life. How accurate is carrier screening? No test is perfect. In a small number of cases, test results can be wrong. A negative test result when you have a gene for the disorder tested is called a false-negative result. A positive test result when you do not have a gene for a disorder is called a false-positive result. Also, because carrier screening looks for only a limited number of genes, it is possible that you are a carrier of a genetic disorder even if your test results are negative.. 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 Do NOT take Sudafed if you have high blood pressure Robitussin Mucinex Any throat or cough drops, or sprays Chlor-Trimeton Vicks Nasal Sprays [place] Nasal [place] (saline nose spray) Allergy Medication Zyrtec, Claritin Pain Reliever and Fever Face And Fill Packer Tylenol, Extra Strength Tylenol, Acetaminophen, Panadol, Tempra, Anacin Aspirin Free Antacids Maalox, Maalox Plus, Mylanta, Mylanta II, Riopan, Riopan Plus, Tums, Rolaids, Gaviscon, Pepcid, Zantac Stool Softeners Colace, Surfak, Metamucil, Citrucel, Fibercon Constipation Mineral Oil, Milk of Magnesia, Miralax Increase fluid and fiber! Nausea Unisom sleep tabs 25 mg (Doxylamine) take one each evening and Vitamin B-6 (25 mg) take 3 times per day Danilo capsules, Danilo tea, Natural gingerale Diarrhea Imodium A/D, Pedialyte, Rehydrate, Gatorade, BRAT diet -bananas, rice, applesauce and toast NOTE: If diarrhea persists more than two days, or if bloody, call the office! Gas Beano, Gas-X (simethicone) Sleep Aid Tylenol PM, Benadryl, Sleepy Time Tea ====== Nausea and Vomiting in How common is nausea and vomiting of ? Nausea and vomiting of is a very common condition. Although nausea and vomiting of often is called morning sickness, it can occur at any time of the day. Nausea and vomiting of usually is not harmful to the developing baby, but it can have a serious effect on your life, including your ability to work or do your normal daily activities. When does nausea and vomiting of start? Nausea and vomiting of usually starts before 9 weeks of . For most women, it goes away by the second trimester (14 weeks of ). For some women, it lasts for several weeks or months. For a few women, it lasts throughout the entire . What is the difference between mild and severe nausea and vomiting of ? Some women feel nauseated for a short time each day and may vomit once or twice. This usually is defined as mild nausea and vomiting of . In more severe cases, nausea lasts several hours each day and vomiting occurs more frequently. Deciding to seek treatment depends on how much nausea and vomiting of affects your life and causes you concern, not whether your condition is mild or severe. What is hyperemesis gravidarum? Hyperemesis gravidarum is the most severe form of nausea and vomiting of . It occurs in up to 3% of pregnancies. This condition may be diagnosed when a woman has lost 5% of her prepregnancy weight and has other problems related to dehydration (loss of body fluids). Women with hyperemesis gravidarum need treatment to stop their vomiting and restore body fluids. Sometimes treatment in a hospital is needed. Am I at risk of severe nausea and vomiting of ? If you have any of the following factors, your risk of severe nausea and vomiting of may be increased: Being with more than one baby (multiple ) Past with nausea and vomiting (either mild or severe) Your mother or sister had severe nausea and vomiting of History of motion sickness or migraines Being with a female fetus Could nausea and vomiting during be caused by another medical condition? Some medical conditions can cause nausea and vomiting during . These include an ulcer, food-related illness, thyroid disease, or gallbladder disease. Your rerolling machine operator may suspect that you have one of these conditions if you have signs or symptoms that do not usually occur with nausea and vomiting of : Nausea and vomiting that occurs for the first time after 9 weeks of Abdominal pain or tenderness Fever Headache Enlarged thyroid gland (swelling in the front of the neck) Can nausea and vomiting of affect my baby? Having nausea and vomiting of usually does not harm your health or your baby s health. It does not mean your baby is sick. It can become more of a problem if you cannot keep down any food or fluids and begin to lose weight. When this happens, it sometimes can affect the baby s weight at . You also can develop problems with your thyroid, liver, and fluid balance. When is the best time to treat nausea and vomiting of ? Because severe nausea and vomiting of is hard to treat and can cause health problems, many experts recommend early treatment so that it does not become severe. What can I do to feel better if I have nausea and vomiting of ? Diet and lifestyle changes may help you feel better. You may need to try more than one of these suggestions: Take a multivitamin. Try eating dry toast or crackers in the morning before you get out of bed to avoid moving around on an empty stomach. Drink fluids often. Avoid smells that bother you. Eat small, frequent meals instead of three large meals. Try bland foods. For example, the GREG diet (bananas, rice, applesauce, toast, and tea) is low in fat and easy to digest. Try danilo dontae made with real danilo, danilo tea made from fresh grated danilo, danilo capsules, and danilo candies. If you do vomit a lot, it can cause some of your tooth enamel to wear away. This happens because your stomach contains a lot of acid. Rinsing your mouth with a teaspoon of baking soda dissolved in a cup of water may help neutralize the acid and protect your teeth. Is there medical treatment for nausea and vomiting of ? If diet and lifestyle changes do not help your symptoms, or if you have severe nausea and vomiting of , medical treatment may be needed. If other medical conditions are ruled out, certain medications can be given to treat nausea and vomiting of : Vitamin B6 and doxylamine--Vitamin B6 is a safe, jhge-ken-[id number] treatment that may be tried first. Doxylamine, a medication found in [id number]-[id number] sleep aids, may be added if vitamin B6 alone does not relieve symptoms. A prescription drug that combines vitamin B6 and doxylamine is available. Both drugs--taken alone or together--have been found to be safe to take during and have no harmful effects on the baby. Try Vitamin B6 25 mg, take it 3 times per day. Unisom sleep tablet 25 mg (active ingredient doxylamine), take one per day before bed. These won't help if just taken as needed. They should be taken daily be most effective. Antiemetic drugs--If vitamin B6 and doxylamine do not work, antiemetic drugs may be prescribed. These drugs prevent vomiting. Many antiemetic drugs have been shown to be safe to use during . Others have conflicting or limited safety information. You and your rerolling machine operator or other members of your health care team can discuss all of these factors to determine the best treatment for your personal situation. What may happen if my nausea and vomiting is severe or I have hyperemesis gravidarum? You may need to stay in the hospital until your symptoms are under control. Lab tests may be done to check how your liver is working. If you are dehydrated from loss of fluids, you may receive fluids and vitamins through an intravenous line. If your vomiting cannot be controlled, you may need additional medication. If you continue to lose weight, sometimes tube feeding is recommended to ensure that you and your baby are getting enough nutrients. If you have further questions, contact your healthcare provider. Copyright March 2015 by the [employer] Information: Do's and Don'ts Even with all the sanya and anticipation can bring, it is not uncommon for a [id number] to have some questions and concerns -- not only about changes to expect throughout her , but also concerns regarding the care of her body to ensure the health of her unborn child. Listed below, you will find some additional information that covers how to care for your body while you are . Do: Plan for weight gain Weight gain during varies from woman to woman and depends on body type. Each woman should talk with her care provider about the appropriate amount of weight gain, as well as diet and exercise. During your , normal weight gain of 0-5 pounds in the first 20 weeks is normal. Most women will gain about a pound a week between 20-40 weeks . However, if your BMI is above or below normal, the following recommendation should be followed: Underweight - BMI Less than 18: Total weight gain 28-40 lbs. Normal Weight - BMI 19-25: Total weight gain 25-35 lbs Overweight - BMI 26-30: Total weight gain 15-25 lbs Obese - BMI over 30: Total weight gain 11-20 lbs If you are having trouble trying to figure out a diet that works for you, please let us know and we can schedule a nutrition consultation for you with our recovery specialist. Do: Maintain a balanced diet According to the FDA, about 300 extra calories are needed daily to maintain a healthy . These calories should come from a balanced diet of protein, fruits, vegetables, and whole grains, with sweets and fats kept to a minimum. A healthy, well-balanced diet during can also help to minimize some symptoms such as nausea and constipation. The richardson to a healthy is making sure you have a good nutrient dense diet. This means that the foods you eat have a low amount of calories and sugars and a high amount of vitamins, minerals and protein. Common examples of nutrient dense foods are colorful fruits and vegetables especially those with dark, rich colors such as leafy green vegetables, berries and carrots. Whole grains, nuts and seeds are also considered nutrient dense. During your , You and your baby need about 60-100 grams of protein every day. Protein rich foods include meat, fish, eggs, almonds cottage cheese, Palestinian yogurt, low fat cheese and low fat milk. Most women notice that if they eat 60-100 grams of protein every day and eat 7-12 cups of veggies and fruit every day that they don't crave sweet, simple carbohydrates such as bread, bagels, cookies, chips and sugary foods. Simple carbohydrates need to be eaten in moderation throughout as excess carbohydrate intake can cause excess weight gain which can increase your risk for gestational diabetes, gestational hypertension and excessive growth of the baby Fluid intake is also an important part of healthy nutrition. Women can take in enough fluids by drinking 6 to 8 glasses of water each day, in addition to the fluids in juices and soups. An expectant mother should talk with her health care provider or cutting inspector about restricting her intake of caffeine and artificial sweeteners. All alcohol should be avoided in . Do: Exercise during : Regular exercise during , with the approval of your physician or cutting inspector, can often help to minimize the daily physical discomforts and help with the recovery after the baby is born. There is evidence that physical activity may be especially beneficial for women with gestational diabetes. Women who exercised and were physically fit before can safely continue exercising throughout the . Women who were inactive before or who have medical or complications should consult with their physician or cutting inspector before beginning any exercise during . All women should be evaluated by their physician or cutting inspector before beginning or continuing an exercise program while . Exercise for women may not be safe if they have any of the following conditions: labor in current or past pregnancies Vaginal bleeding Cervical problems Leaking of amniotic fluid Shortness of breath Dizziness and/or fainting Decreased activity or other complications Increased heart rate (tachycardia) Certain health problems, such as high blood pressure or heart disease Types of exercise to avoid during : Horseback riding Water skiing Scuba diving High altitude skiing Contact sports Any exercise that can cause a serious fall Exercising on your back after the first trimester (because of reduced blood flow to the uterus) Vigorous exercise in hot, humid weather, as women are less efficient at exchanging heat Exercise involving the Valsalva maneuver (holding one's breath during exertion), which can increase intra-abdominal pressure on the uterus Don't: Expose yourself to unnecessary risks if you work during Many women work during without any complications. Being able to work safely, in some cases, until the day of delivery depends on the type of work performed and the [id number]'s medical condition. Taking proper precautions to avoid these risks on the job can help keep you and your baby healthy throughout the . The [employer] recommends the following for working women: Take a break every few hours Take a longer meal break every four hours Drink plenty of fluids while on the job Vary work positions continuously, from sitting to standing and walking Minimize heavy lifting and bending Proper lifting techniques during Weight gain during adds strain to the back. Proper lifting can help reduce the strain and prevent injury. When lifting, a woman should keep in mind the following recommendations: Stand with feet shoulder-width apart Tuck in the buttocks Bend at the knees Lift with the arms and legs, not the back Limit the amount and weight of the items lifted Computer use in Today, many occupations involve the use of a computer. Computers have also been associated with many complaints, such as neck, wrist, hand, shoulder, and back pain from prolonged sitting in the same position and eyestrain. To alleviate these symptoms, the following may help: Take frequent work breaks Use detachable keyboards and adjustable chairs and tables Use non-reflective glass on the screen, adjust the screen lighting and contrast, and install indirect lighting Do: Discuss sex during with your health care provider In most cases, sex during is safe. In fact, with your health care provider's approval, sexual relations can continue until delivery. However, fluctuating hormone levels and certain symptoms such as nausea and tiredness can temporarily reduce a woman's libido (sex drive). In addition, visible changes in the woman's body may affect sexual desire. Always consult your healthcare provider concerning any questions you may have about sex during . Sexual intercourse may have to be avoided if the following symptoms occur: Vaginal bleeding Pain Leaking of amniotic fluid (the fluid surrounding your baby in the womb) Contractions Do: Discuss the best sleeping positions with your health care provider As the fetus grows within the uterus, lying on your back is not recommended due to pressure on the inferior vena cava, a major vein that returns blood from the lower body to the heart. In addition, the increased pressure on the back and intestines can cause discomfort. The best sleeping position for a woman is on her side, because it allows for maximum blood flow to the fetus and improves kidney function in the mother. Improved kidney flow helps to reduce any swelling. Placing a pillow between the knees can help a woman sleep more comfortably on her side. How to contact us: During office hours please call the office: [phone] After hours answering service phone number: [phone] Please call if you experience any of the following: LABOR: Contractions that you feel 4-6 times per hour. It may feel like lower abdominal cramping, or low back pain that comes and goes with stomach tightening. If you notice this, lie down on your side and drink 2 bottles of water. Rest and fluids is normally enough to calm things down. If after 1-2 hours the contractions don't get better, then call us. BLEEDING: Blood tinged mucous discharge is not uncommon, especially if you have had an exam in the office recently or sexual intercourse. However if you are bleeding like a period, you should call us WATER BREAKS: You may experience in increase in vaginal secretions near the time of labor, but if you think your water broke, please call us. DECREASED MOVEMENT: Baby movements change in the last trimester. They tend to be not as vigorous, and change to nudges and rolls. But, if you feel like these movement are not normal, please call our office during office hours or the answering service after hours. ========= [facility] Midwifery Service Before you bring your baby into the world, a lot of decisions have to be made. One of those decisions is whether or not to use a Certified Nurse Industrial Maintenance Mechanic (CNM). Certified Nurse Midwives are registered nurses who have received a master s degree and advanced training in women s health and midwifery. They passed a national certification examination and are licensed in the [facility]. Certified Nurse Midwives write prescriptions and provide a variety of services, including: care Labor & delivery care Care after Disease prevention Family planning assistance Gynecological exams Health maintenance counseling Menopausal management Preconception care CNMs work to support and educate women through all phases of and delivery, and support both medicated and non-medicated birthing methods. They are especially skilled at using alternative birthing positions, birthing balls, water therapy, and massage. If you desire an epidural, this is still an option if you have a Certified Nurse Industrial Maintenance Mechanic. You will work with your CNM to determine the best delivery options for you. However, if medical intervention is needed, your cutting inspector will take the steps necessary to ensure a healthy outcome for you and your baby. Certified Nurse Midwives are always fire loss prevention engineer with a physician in case intervention is needed, for instance a Section, vacuum or forceps assisted . Our physician would perform those procedures and the CNM remains present with you for support. The laboring woman receives the best possible care with this team based approach. The CNM section rate at [facility] is only 8-9%, which means most mothers have a normal vaginal . [facility] offers the largest midwifery team in the [facility]. This team is available any time, day or night for your delivery. The cutting inspector that is fire loss prevention engineer the day you labor will be the one who attends the . Throughout your you have the option to meet the various midwives or simply go to the office that is most convenient for you. Not all midwives see clients in every office. Tish Zamora, EARTH SCIENCE PROFESSOR-CNM Rossi Burciaga, EARTH SCIENCE PROFESSOR-CNM Sarah Lazaro, EARTH SCIENCE PROFESSOR-CNM Lili Nelson, EARTH SCIENCE PROFESSOR-CNM Leora Dueñas, EARTH SCIENCE PROFESSOR-CNM Talisha Shepherd EARTH SCIENCE PROFESSOR-CNM Ronda Kumar, EARTH SCIENCE PROFESSOR-CNM Jud Rivera, EARTH SCIENCE PROFESSOR-CNM * Cathy Cerda, EARTH SCIENCE PROFESSOR-CNM Bharti Quintanilla, EARTH SCIENCE PROFESSOR-CNM Marybel Suggs EARTH SCIENCE PROFESSOR-CNM Shayy Saldaña, EARTH SCIENCE PROFESSOR-CNM * Homa Jones, EARTH SCIENCE PROFESSOR-CNM * *Office-based only midwives, do not attend births Currently, 28/10 midwifery coverage while in labor is only available at [facility]. Do you want more information about midwives? Discover more information for you and your family at the [employer] ([employer]) web site at [email or web address]. Check out the video about Midwives and the Care They Provide at http://bit.ly/MidwivesCare-video Low Risk Medications This is a listing of low risk, over the counter medications that you may take during your for the following symptoms: Cough, Cold, Congestion Benadryl: Allergy/Cold, Allergy Congestion Tylenol: Cold Non-drowsy, Multi Symptom Cold Complete, Cold Severe Congestion Non-drowsy, Sinus Non-drowsy, Flu Non-drowsy Sudafed: Cold and Sinus, Cold and Cough, Non-drying Sinus, Severe Cold Formula Sinus WARNING! Do NOT take Sudafed if you have high blood pressure Robitussin Mucinex Any throat or cough drops, or sprays Vicks Nasal Sprays Marion Nasal Douglas (saline nose spray) Allergy Medication Zyrtec, Claritin Pain Reliever and Fever Face And Fill Packer Tylenol, Extra Strength Tylenol, Acetaminophen, Panadol, Tempra, Anacin Aspirin Free Antacids Maalox, Maalox Plus, Mylanta, Mylanta II, Riopan, Riopan Plus, Tums, Rolaids, Gaviscon, Pepcid, Zantac Stool Softeners Colace, Surfak, Metamucil, Citrucel, Fibercon Constipation Mineral Oil, Milk of Magnesia, Miralax Increase fluid and fiber! Nausea Unisom sleep tabs (Doxylamine) and vitamin B-6 (25mg) Take morning and night Danilo capsules, Danilo tea, Natural danilo dontae Diarrhea Imodium A/D, Pedialyte, Rehydrate, Gatorade BRAT diet - bananas, rice, applesauce and toast NOTE: If diarrhea persists more than two days, or if bloody, call the office! Gas Beano, Gas-X (simethicone) Sleep Aid Tylenol PM, Benadryl, Sleep Time Tea documented in this encounter [facility] 10-21-2022 History of Presen t illness Narrative Carlitos Navin 10/21/2022 21 y.o. 10/21/2022 This patient is new to me This is a new problem. HPI - She is being seen today regarding no period and positive urine test at home. TELEHEALTH VISIT Carlitos Holden 10/21/[birth year]22 21 y.o. 10/21/2022 This patient is new to me This is a new problem HPI - She is being evaluated today regarding no period and positive urine test at home. This was a planned She was not using control at the time of conception No LMP recorded. Average Cycle length: 25 days Menses are regular. EDC based on LMP: 06/24/23 Estimated weeks gestation: 4w 6d Vaginalbleeding: no Pelvic pain: no Currently taking a vitamin: yes Has nausea and/or vomiting: no Fatigue: yes Breast tenderness: yes Smoking: no Review of Systems: Constitutional: Positive for appetite change and fatigue. Negative for chills and fever. HENT: Negative for congestion. Respiratory: Negative for cough and chest tightness. Cardiovascular: Negative for chest pain, palpitations and leg swelling. Gastrointestinal: Positive for nausea. Negative for abdominal distention, abdominal pain, constipation, diarrhea and vomiting. Genitourinary: Negative for dysuria, frequency and vaginal discharge. Musculoskeletal: Negative for back pain. Skin: Negative for pallor and rash. Allergic/Immunologic: Negative for environmental allergies and food allergies. Neurological: Negative for seizures and headaches. Psychiatric/Behavioral: Negative for confusion. The patient is not nervous/anxious. History reviewed. No pertinent past medical history. OB History No obstetric history on file. History reviewed. No pertinent surgical history. MEDICATIONS: No current outpatient medications on file. No current facility-administered medications for this visit. ALLERGIES: Allergies as of 10/21/2022 (Not on File) PHYSICAL EXAM There is no height or weight on file to calculate BMI. Constitutional: Alert and oriented to person, place, and time. Cooperative, and seems to be in no acute distress Psych: The patient was able to demonstrate good judgement and reason. Thought content is normal. Assessment: Diagnosis Plan 1. Amenorrhea Antibody screen ABO Group Rh Type hCG, quantitative Diagnoses and all orders for this visit: Amenorrhea (Primary) - Antibody screen - ABO Group - Rh Type - hCG, quantitative Follow up in about 4 weeks (around 11/18/2022) for IPV, Dating US. Plan: PNV recommended and prescribed if needed. HCG ordered if needed due to irregular periods or very early gestation. Pt aware that she can find the results on Elastera and that I will follow up with a Elastera message Dating and viability US ordered NOB process reviewed process reviewed. Obstetrical calendar on AVS NOB education packet given: via AVS and handouts as available. Information regarding aneuploidy and carrier screening given to patient on AVS Patient will be evaluated at her next in person visit or by previous BMI to assess criteria for early glucose if viable IUP confirmed Reviewed relief measures for nausea and vomiting including over the counter B6 and doxylamine. NAI Kraft Patient was evaluated by telehealth today for evaluation, counseling and education regarding The encounter diagnosis was Amenorrhea. and No chief complaint on file. . Her medications, medical history, social history and previous labs and imaging were reviewed Patient was seen today via Telehealth by agreement and consent in light of the current COVID-19 pandemic. I used the following Telehealth technology: audio This patient encounter is appropriate and reasonable under the circumstances given the patient's particular presentation at this time. The patient has been advised of the potential risks and limitations of this mode of treatment (including but not limited to the absence of in-person examination) and has agreed to be treated in a remote fashion in spite of them. Any and all of the patient's/patient's family's questions on this issue have been answered and I have made no promises or guarantees to the patient. The patient has also been advised to contact this office for worsening conditions or problems, and seek emergency medical treatment and/or call 911 if the patient deems either necessary. The patient stated that they are currently in the [facility]. If the patient is a minor, permission has been obtained by the parent or guardian for the patient to receive medical care at this visit. Review of Systems Constitutional: Positive for appetite change and fatigue. Negative for chills and fever. HENT: Negative for congestion. Respiratory: Negative for cough and chest tightness. Cardiovascular: Negative for chest pain, palpitations and leg swelling. Gastrointestinal: Positive for nausea. Negative for abdominal distention, abdominal pain, constipation, diarrhea and vomiting. Genitourinary: Negative for dysuria, frequency and vaginal discharge. Musculoskeletal: Negative for back pain. Skin: Negative for pallor and rash. Allergic/Immunologic: Negative for environmental allergies and food allergies. Neurological: Negative for seizures and headaches. Psychiatric/Behavioral: Negative for confusion. The patient is not nervous/anxious. OB History No obstetric history on file. History reviewed. No pertinent past medical history. History reviewed. No pertinent surgical history. No family history on file. Social History Socioeconomic History Marital status: Spouse name: Not on file Number of children: Not on file Years of education: Not on file Highest education level: Not on file Occupational History Not on file Tobacco Use Smoking status: Never Smokeless tobacco: Never Substance and Sexual Activity Alcohol use: Never Drug use: Never Sexual activity: Not on file Other Topics Concern Not on file Social History Narrative Not on file Social Determinants of Health Financial Resource Strain: Not on file Food Insecurity: Not on file Transportation Needs: Not on file Physical Activity: Not on file Stress: Not on file Social Connections: Not on file Intimate Partner Violence: Not on file Housing Stability: Not on file OB History No obstetric history on file. History reviewed. No pertinent surgical history. MEDICATIONS: No current outpatient medications on file. No current facility-administered medications for this visit. ALLERGIES: Allergies as of 10/21/2022 (Not on File) PHYSICAL EXAM vitals were not taken for this visit. There is no height or weight on file to calculate BMI. Constitutional: Alert and oriented to person, place, and time. Normal appearance and dress, well developed, well nourished, cooperative, and appears to be in no acute distress HENT: Head: Normocephalic Eyes: PERRLA, normal sclera, vision grossly intact, no eye discharge Nose: No nasal discharge Neck: Supple, normal range of motion Respiratory: Normal respiratory effort, no respiratory distress. Neuro: no gross motor deficits Musculoskeletal: Normal gait, normal muscular development, no edema Extremities: No calf tenderness, DTR 2+, and No edema bilaterally Skin: Skin normal color, warm and dry, normal texture with no lesions or eruptions. Psych: The patient was able to demonstrate good judgement and reason, without hallucinations, abnormal affect or abnormal behaviors during the examination. Patient is not suicidal. Thought content is normal. Assessment: Diagnosis Plan 1. Amenorrhea Antibody screen ABO Group Rh Type hCG, quantitative Diagnoses and all orders for this visit: Amenorrhea (Primary) - Antibody screen - ABO Group - Rh Type - hCG, quantitative Follow up in about 4 weeks (around 11/18/2022) for IPV, Dating US. Plan: PNV recommended and prescribed if needed. Advised to take a vitamin with iron, not a gummy vitamin after the first trimester. HCG ordered-Pt aware that she can find the results on Kryptiqt and that I will follow up with a Elastera message Dating and viability US ordered NOB process reviewed process reviewed. Obstetrical calendar on AVS NOB education packet given: via AVS and handouts as available. Information regarding aneuploidy and carrier screening given to patient on AVS There is no height or weight on file to calculate BMI. patient meets criteria for early glucose ifviable IUP confirmed No Reviewed relief measures for nausea and vomiting including over the counter B6 and doxylamine. NAI Kraft Patient was seen today for evaluation, counseling and education regarding The encounter diagnosis was Amenorrhea. and No chief complaint on file. . Previous labs and other diagnostics were reviewed if available Previous office notes were also reviewed if available. documented in this encounter [facility] 10-21-2022 Instructions Marybel Suggs CNM - 10/21/2022 2:15 PM EDT Obstetrical Calendar Weeks Gestation: Discussion and Testing 4-8 weeks - Visit with provider to establish hcg blood levels and order ultrasound. 6-13 Weeks - Dating and Viability Ultrasound and Visit with provider to discuss US results. 10-13 weeks - Initial OB intake and physical with a Industrial Maintenance Mechanic or Nurse Practitioner. Obtain complete medical, genetic and obstetrical history blood work ordered education Discuss testing options: 1st trimester screening (provides a more accurate assessment of a woman s risk for carrying a baby with Down Syndrome, Trisomy 13 and Trisomy 18. Carrier Screening for Cystic Fibrosis, Spinal Muscular Atrophy or Fragile x. AFP for Neural Tube Defect. Other tests if appropriate due to risk factors. Discuss Physician and Nurse Industrial Maintenance Mechanic options Discuss hospital for delivery 10-14 Weeks - Visit with OB Provider Review Results of Labs Discuss 1st Trimester Screening or Free Cell DNA if you wish to pursue Discuss indications or need for MFM referral if High Risk, or if need for Amniocentesis or CVS (Chorionic villus sampling) test to diagnose chromosomal abnormalities At Each visit - Check Blood pressure, Check urine, check weight and heart tones as indicated 12-16 weeks - Visit with OB Provider Discuss 2nd trimester screening if desired Check blood pressure, urine, weight and heart tones Review OB provider options Schedule anatomy US for 18-20 weeks 18-20 weeks - Anatomy US and Visit with Provider Check weight, blood pressure and urine Listen to heart beat and check uterine size Review results of anatomy US 22-24 weeks - Visit with OB Provider Check weight, blood pressure and urine Listen to heart beat and check uterine size Discuss 1 hour glucose test for gestational diabetes Order blood work for anemia and glucose test to be done around 26-28 weeks Order Antibody screen and rhogam IF Rh negative blood type 26-28 weeks - Visit with OB Provider Check weight, blood pressure and urine Listen to heart beat and check uterine size Review results of glucose test and anemia test if done Discuss plans, preregistration, choosing paving inspector, taking childbirth classes 30 - 36 weeks - Visits with OB provider every 2 weeks Check weight, blood pressure and urine Listen to heart beat and check uterine size High risk testing, if needed, will begin weekly - Please schedule all of theses ahead of time. Discuss circumcision, breast feeding, preregistration. Discuss plans, consider CNM or physician for delivery. 36-40 weeks - Visits with Ob provider every week Check weight, blood pressure and urine Listen to heart beat and check uterine size Obtain vaginal/rectal culture for Group B Strep Cervical exam 41 weeks - Visit with OB provider Discuss option for post term testing with Non-Stress test and SUNITA Discuss and schedule induction of labor prior to 42 weeks Genetic Screening Tests What is genetic testing? genetic testing gives osecnat-ut-rg information about whether their fetus has certain genetic disorders. What are genetic disorders? Genetic disorders are caused by changes in a person s genes or chromosomes. Aneuploidy is a condition in which there are missing or extra chromosomes. In a trisomy, there is an extra chromosome. In a monosomy, a chromosome is missing. Inherited disorders are caused by changes in genes called mutations. Inherited disorders include sickle cell disease, cystic fibrosis, Erickson-Sachs disease, and many others. In most cases, both parents must carry the same gene to have an affected child. What are genetic screening tests? These tests can tell you the chances that your fetus has an aneuploidy and a few additional disorders. This FAQ focuses on these tests. Genetic Screening Tests What is genetic testing? genetic testing gives [id number] information about whether their fetus has certain genetic disorders. What are genetic disorders? Genetic disorders are caused by changes in a person s genes or chromosomes. Aneuploidy is a condition in which there are missing or extra chromosomes. In a trisomy, there is an extra chromosome. In a monosomy, a chromosome is missing. Inherited disorders are caused by changes in genes called mutations. Inherited disorders include sickle cell disease, cystic fibrosis, Erickson-Sachs disease, and many others. In most cases, both parents must carry the same gene to have an affected child. What are genetic screening tests? These tests can tell you the chances that your fetus has an aneuploidy and a few additional disorders. This FAQ focuses on these tests. What are the different types of genetic screening tests? Screening tests can tell you your risk of having a baby with certain disorders. They include carrier screening and genetic screening tests: Carrier screening is done on parents (or those just thinking about becoming parents) using a blood sample or tissue sample swabbed from inside the cheek. These tests are used to find out whether a person carries a gene for certain inherited disorders. Carrier screening can be done before or during . genetic screening tests of the woman s blood and findings from ultrasound exams can screen the fetus for aneuploidy; defects of the brain and spine called neural tube defects; and some defects of the abdomen, heart, and facial features. This focuses on these tests. They include first-trimester screening and second-trimester screening What is first-trimester screening? Aneupoidy screening or NIPT (non-invasive testing) is done with maternal blood taken sometime after 12weeks 4 days. This test helps determine the risk for trisomy 21, trisomy 13 and trisomy 18. It also detects abnormalities of the sex chromosomes such as monosomy X and Turners syndrome. What is second-trimester screening? Second-trimester screening includes the following tests: The quad or quadruple blood test measures the levels of four different substances in your blood. The quad test screens for Down syndrome, trisomy 18, and neural tube defects. It is done between 15 weeks and 22 weeks of . There is an option to only measure the alpha fetoprotein (AFP) level with blood work which could screen for only neural tube defects. An ultrasound exam done between 18 weeks and 20 weeks of checks for major physical defects in the brain and spine, facial features, abdomen, heart, and limbs. What do the different results of screening tests mean? Results of blood screening tests for aneuploidy are reported as the level of risk that the disorder might be present: A positive screening test result for aneuploidy means that your fetus is at higher risk of having the disorder compared with the general population. It does not mean that your fetus definitely has the disorder. A negative result means that your fetus is at lower risk of having the disorder compared with the general population. It does not rule out the possibility that your fetus has the disorder. What should I consider when deciding whether to have genetic testing? It is your choice whether to have testing. Your personal beliefs and values are important factors in the decision about testing. It can be helpful to think about how you would use the results of screening tests in your care. Remember that a positive screening test tells you only that you are at higher risk of having a baby with Down syndrome or another aneuploidy. A diagnostic test should be done if you want to know a more certain result. Some parents want to know beforehand that their baby will be born with a genetic disorder. This knowledge gives parents time to learn about the disorder and plan for the medical care that the child may need. Some parents may decide to end the in certain situations. Other parents do not want to know this information before the child is born. In this case, you may decide not to have follow-up diagnostic testing if a screening test result is positive. Or you may decide not to have any testing at all. There is no right or wrong answer. Glossary Amniocentesis: A procedure in which a needle is used to withdraw and test a small amount of amniotic fluid and cells from the sac surrounding the fetus. Aneuploidy: Having an abnormal number of chromosomes. Carrier Screening: A test done on a person without signs or symptoms to find out whether he or she carries a gene for a genetic disorder. Chorionic Villus Sampling (CVS): A procedure in which a small sample of cells is taken from the placenta and tested. Cystic Fibrosis: An inherited disorder that causes problems in digestion and breathing. Down Syndrome: A genetic disorder that causes abnormal features of the face and body, medical problems such as heart defects, and intellectual disability. Most cases of Down syndrome are caused by an extra chromosome 21 (trisomy 21). Many children with Down syndrome live to adulthood. Monosomy: A condition in which there is a missing chromosome. Neural Tube Defects: defects that result from incomplete development of the brain, spinal cord, or their coverings. Nuchal Translucency Screening: A test in which the size of a collection of fluid at the back of the neck is measured by ultrasound to screen for certain defects, such as Down syndrome, trisomy 18, or heart defects. Screening Tests: Tests that look for possible signs of disease in people who do not have symptoms. Sickle Cell Disease: An inherited disorder in which red blood cells have a crescent shape, causing chronic anemia and episodes of pain. It occurs most often in Americans. Erickson-Sachs Disease: An inherited defect that causes intellectual disability, blindness, seizures, and , usually by age 5 years. It most commonly affects people of [place] and [place], [place], and [place] descent, but it can occur in anyone. Trisomy 13 (Patau Syndrome): A chromosomal disorder that causes serious problems with the brain and heart as well as extra fingers and toes, cleft palate and lip, and other defects. Most infants with trisomy 13 within the first year of life. Trisomy 18 (Dueñas Syndrome): A chromosomal disorder that causes severe intellectual disability and serious physical problems such as a small head, heart defects, and deafness. Most of those affected with trisomy 18 before or within the first month of life. Copyright October 2016 by the [employer] How to decide which tests are right for you The [employer] recommends that women of all ages be offered first- and second-trimester screening and diagnostic testing options. Your practitioner should discuss the pros and cons of various approaches with you. If you need further information, consider meeting with a genetic counselor. But ultimately, whether to test and which tests to have is a personal decision. Many women opt for screening and then make a decision about diagnostic testing (meaning CVS or amnio) based on the initial results. Some women decide to have no screening or testing at all. ========= Carrier Screening What is carrier screening? Carrier screening is a type of genetic test that can tell you whether you carry a gene for certain genetic disorders. When it is done before or during , it allows you to find out the chances of having a child with a genetic disorder. What is a carrier? For some genetic disorders, it takes two genes for a person to have the disorder. A carrier is a person who has only one gene for a disorder. Carriers usually do not have symptoms or have only mild symptoms. Because they often do not know that they have a gene for a disorder, they can pass the gene on to their children. What are the chances of having a child with a genetic disorder? If both parents are carriers of a recessive gene for a disorder, there is a 25% (1-in-4) chance that their children will get the gene from each parent and will have the disorder. There is a 50% (1-in-2) chance that the children will be carriers of the disorder--just like the carrier parents. If only one parent is a carrier, there is a 50% (1-in-2) chance that the child will be a carrier of the disorder. How is carrier screening done? Carrier screening involves testing a sample of blood, saliva, or tissue from the inside of the cheek. Test results can be negative (you do not have the gene) or positive (you do have the gene). Typically, the partner who is most likely to be a carrier is tested first. If test results show that the first partner is not a carrier, then no additional testing is needed. If test results show that the first partner is a carrier, the other partner is tested. Once you have had a carrier screening test for a specific disorder, you do not need to be tested again for that disorder. When hard candy batch mixer screening be done? Some people decide to have carrier screening before having children. Carrier screening also can be done during . Getting tested before gives you a greater range of options and more time to make decisions. Do I have to have carrier screening? Carrier screening is a voluntary decision. You can choose to have carrier screening, or you can choose not to. There is no right or wrong choice. Can I find out the sex with this test? Yes, if you are , the test can be done after 10 weeks of and indicate the sex (boy or girl). What carrier screening tests are available? We offer a carrier screening panel for 14 diseases. This test is called Horizon If you re an expectant parent, or thinking about starting a family, you probably want to do everything you can to prepare. This test provides a closer look at your genes, to see if you are at risk of passing a hereditary genetic disorder to your child. The Panel checks for carrier status of three of the most common genetic disorders that can cause serious health problems, intellectual disability, or a shorter life. Who should have carrier screening? We all carry genetic changes that don t impact our own health, but can cause disease in our children. The only way to find out if you are a carrier is to have genetic carrier testing. Most people who learn they are carriers are healthy and have no known history of the condition in their family. Carrier testing helps you prepare for life Sometimes, a couple will learn during that they are at increased risk for a hereditary disorder. When this happens, diagnostic tests can provide answers about whether the baby is affected by the disorder. Knowing about the health of the baby can help guide the medical management of the , and could also give the family critical time to prepare--physically, financially, and emotionally--for the of a child with extra needs. Couples who learn about their carrier status before conception can take steps to build a healthy family. There are a number of potential choices to consider. Some couples become naturally, with or without diagnosis. Some pursue in vitro fertilization (IVF), using a diagnostic test to help select healthy embryos for implantation. Others use donor eggs or sperm from a person who is not a carrier. Some couples choose to adopt a child. Your healthcare provider or a genetic counselor can discuss these options in greater detail This information can be found online in more detail at: [email or web address] [email or web address] How accurate is carrier screening? No test is perfect. In a small number of cases, test results can be wrong. A negative test result when you have a gene for the disorder tested is called a false-negative result. A positive test result when you do not have a gene for a disorder is called a false-positive result. Also, because carrier screening looks for only a limited number of genes, it is possible that you are a carrier of a genetic disorder even if your test results are negative.. 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 Do NOT take Sudafed if you have high blood pressure Robitussin Mucinex Any throat or cough drops, or sprays Chlor-Trimeton Vicks Nasal Sprays Marion Nasal Douglas (saline nose spray) Allergy Medication Zyrtec, Claritin Pain Reliever and Fever Face And Fill Packer Tylenol, Extra Strength Tylenol, Acetaminophen, Panadol, Tempra, Anacin Aspirin Free Antacids Maalox, Maalox Plus, Mylanta, Mylanta II, Riopan, Riopan Plus, Tums, Rolaids, Gaviscon, Pepcid, Zantac Stool Softeners Colace, Surfak, Metamucil, Citrucel, Fibercon Constipation Mineral Oil, Milk of Magnesia, Miralax Increase fluid and fiber! Nausea Unisom sleep tabs 25 mg (Doxylamine) take one each evening and Vitamin B-6 (25 mg) take 3 times per day Danilo capsules, Danilo tea, Natural gingerale Diarrhea Imodium A/D, Pedialyte, Rehydrate, Gatorade, BRAT diet -bananas, rice, applesauce and toast NOTE: If diarrhea persists more than two days, or if bloody, call the office! Gas Beano, Gas-X (simethicone) Sleep Aid Tylenol PM, Benadryl, Sleepy Time Tea = Nausea and Vomiting in How common is nausea and vomiting of ? Nausea and vomiting of is a very common condition. Although nausea and vomiting of often is called morning sickness, it can occur at any time of the day. Nausea and vomiting of usually is not harmful to the developing baby, but it can have a serious effect on your life, including your ability to work or do your normal daily activities. When does nausea and vomiting of start? Nausea and vomiting of usually starts before 9 weeks of . For most women, it goes away by the second trimester (14 weeks of ). For some women, it lasts for several weeks or months. For a few women, it lasts throughout the entire . What is the difference between mild and severe nausea and vomiting of ? Some women feel nauseated for a short time each day and may vomit once or twice. This usually is defined as mild nausea and vomiting of . In more severe cases, nausea lasts several hours each day and vomiting occurs more frequently. Deciding to seek treatment depends on how much nausea and vomiting of affects your life and causes you concern, not whether your condition is mild or severe. What is hyperemesis gravidarum? Hyperemesis gravidarum is the most severe form of nausea and vomiting of . It occurs in up to 3% of pregnancies. This condition may be diagnosed when a woman has lost 5% of her prepregnancy weight and has other problems related to dehydration (loss of body fluids). Women with hyperemesis gravidarum need treatment to stop their vomiting and restore body fluids. Sometimes treatment in a hospital is needed. Am I at risk of severe nausea and vomiting of ? If you have any of the following factors, your risk of severe nausea and vomiting of may be increased: Being with more than one baby (multiple ) Past with nausea and vomiting (either mild or severe) Your mother or sister had severe nausea and vomiting of History of motion sickness or migraines Being with a female fetus Could nausea and vomiting during be caused by another medical condition? Some medical conditions can cause nausea and vomiting during . These include an ulcer, food-related illness, thyroid disease, or gallbladder disease. Your rerolling machine operator may suspect that you have one of these conditions if you have signs or symptoms that do not usually occur with nausea and vomiting of : Nausea and vomiting that occurs for the first time after 9 weeks of Abdominal pain or tenderness Fever Headache Enlarged thyroid gland (swelling in the front of the neck) Can nausea and vomiting of affect my baby? Having nausea and vomiting of usually does not harm your health or your baby s health. It does not mean your baby is sick. It can become more of a problem if you cannot keep down any food or fluids and begin to lose weight. When this happens, it sometimes can affect the baby s weight at . You also can develop problems with your thyroid, liver, and fluid balance. When is the best time to treat nausea and vomiting of ? Because severe nausea and vomiting of is hard to treat and can cause health problems, many experts recommend early treatment so that it does not become severe. What can I do to feel better if I have nausea and vomiting of ? Diet and lifestyle changes may help you feel better. You may need to try more than one of these suggestions: Take a multivitamin. Try eating dry toast or crackers in the morning before you get out of bed to avoid moving around on an empty stomach. Drink fluids often. Avoid smells that bother you. Eat small, frequent meals instead of three large meals. Try bland foods. For example, the GREG diet (bananas, rice, applesauce, toast, and tea) is low in fat and easy to digest. Try danilo dontae made with real danilo, danilo tea made from fresh grated danilo, danilo capsules, and danilo candies. If you do vomit a lot, it can cause some of your tooth enamel to wear away. This happens because your stomach contains a lot of acid. Rinsing your mouth with a teaspoon of baking soda dissolved in a cup of water may help neutralize the acid and protect your teeth. Is there medical treatment for nausea and vomiting of ? If diet and lifestyle changes do not help your symptoms, or if you have severe nausea and vomiting of , medical treatment may be needed. If other medical conditions are ruled out, certain medications can be given to treat nausea and vomiting of : Vitamin B6 and doxylamine--Vitamin B6 is a safe, [id number] treatment that may be tried first. Doxylamine, a medication found in urqb-nmf-[id number] sleep aids, may be added if vitamin B6 alone does not relieve symptoms. A prescription drug that combines vitamin B6 and doxylamine is available. Both drugs--taken alone or together--have been found to be safe to take during and have no harmful effects on the baby. Try Vitamin B6 25 mg, take it 3 times per day. Unisom sleep tablet 25 mg (active ingredient doxylamine), take one per day before bed. These won't help if just taken as needed. They should be taken daily be most effective. Antiemetic drugs--If vitamin B6 and doxylamine do not work, antiemetic drugs may be prescribed. These drugs prevent vomiting. Many antiemetic drugs have been shown to be safe to use during . Others have conflicting or limited safety information. You and your rerolling machine operator or other members of your health care team can discuss all of these factors to determine the best treatment for your personal situation. What may happen if my nausea and vomiting is severe or I have hyperemesis gravidarum? You may need to stay in the hospital until your symptoms are under control. Lab tests may be done to check how your liver is working. If you are dehydrated from loss of fluids, you may receive fluids and vitamins through an intravenous line. If your vomiting cannot be controlled, you may need additional medication. If you continue to lose weight, sometimes tube feeding is recommended to ensure that you and your baby are getting enough nutrients. If you have further questions, contact your healthcare provider. Copyright March 2015 by the [employer] === [facility] Midwifery [facility] Before you bring your baby into the world, a lot of decisions have to be made. One of those decisions is whether or not to use a Certified Nurse Industrial Maintenance Mechanic (CNM). Certified Nurse Midwives are registered nurses who have received a master s degree and advanced training in women s health and midwifery. They passed a national certification examination and are licensed in the [facility]. Certified Nurse Midwives write prescriptions and provide a variety of services, including: care Labor & delivery care Care after Disease prevention Family planning assistance Gynecological exams Health maintenance counseling Menopausal management Preconception care CNMs work to support and educate women through all phases of and delivery, and support both medicated and non-medicated birthing methods. They are especially skilled at using alternative birthing positions, birthing balls, water therapy, and massage. If you desire an epidural, this is still an option if you have a Certified Nurse Industrial Maintenance Mechanic. You will work with your CNM to determine the best delivery options for you. However, if medical intervention is needed, your cutting inspector will take the steps necessary to ensure a healthy outcome for you and your baby. Certified Nurse Midwives are always fire loss prevention engineer with a physician in case intervention is needed, for instance a Section, vacuum or forceps assisted . Our physician would perform those procedures and the CNM remains present with you for support. The laboring woman receives the best possible care with this team based approach. The CNM section rate at [facility] is only 8-9%, which means most mothers have a normal vaginal . [facility] offers the largest midwifery team in the [facility]. This team is available any time, day or night for your delivery. The cutting inspector that is fire loss prevention engineer the day you labor will be the one who attends the . Throughout your you have the option to meet the various midwives or simply go to the office that is most convenient for you. Not all midwives see clients in every office. Tish Zamora EARTH SCIENCE PROFESSOR-CN Rossi Burciaga, EARTH SCIENCE PROFESSOR-CN Sarah Lazaro, EARTH SCIENCE PROFESSOR-CN Lili Nelson, EARTH SCIENCE PROFESSOR-CN Leora Dueñas, EARTH SCIENCE PROFESSOR-CN Ronda Kumar, EARTH SCIENCE PROFESSOR-CN Jud Rivera, [facility]-CN * Libra Degroot, [facility]-CN Cathy Cerda [facility]-CN Bharti Quintanilla, EARTH SCIENCE PROFESSOR-CN Marybel Suggs, EARTH SCIENCE PROFESSOR-CN Shayy Saldaña, [facility] * Homa Jones, [facility] * *Office-based only midwives, do not attend births Currently, 28/10 midwifery coverage while in labor is only available at [facility]. Do you want more information about midwives? Discover more information for you and your family at the [employer] ([employer]) web site at [email or web address]. Check out the video about Midwives and the Care They Provide at http://[email or web address].[email or web address]-video How to contact us: During office hours please call the office: [phone] After hours answering service phone number: [phone] Please call if you experience any of the following: LABOR: Contractions that you feel 4-6 times per hour. It may feel like lower abdominal cramping, or low back pain that comes and goes with stomach tightening. If you notice this, lie down on your side and drink 2 bottles of water. Rest and fluids is normally enough to calm things down. If after 1-2 hours the contractions don't get better, then call us. BLEEDING: Blood tinged mucous discharge is not uncommon, especially if you have had an exam in the office recently or sexual intercourse. However if you are bleeding like a period, you should call us WATER BREAKS: You may experience in increase in vaginal secretions near the time of labor, but if you think your water broke, please call us. DECREASED MOVEMENT: Baby movements change in the last trimester. They tend to be not as vigorous, and change to nudges and rolls. But, if you feel like these movement are not normal, please call our office during office hours or the answering service after hours. [facility] Locations (Previously [facility]): SITE ADDRESS DIRECTIONS TELEPHONE/FAX Hours of Operation [facility] [address] [place] [address] Near [place] Mark Phone Friday-Friday 7:00am-5:00pm 8:00am-12:00pm (Noon) [facility] [address] [place], [place] [address] Professional Building next to [facility] Phone Friday-Friday Closed for Lunch 7:30am-4:30pm 12:30pm-1:30pm KaranGilbert: [address] [address] former [facility] Phone Friday-Friday 7:30am-4:30pm KaranGilbert: [facility] [address] [place] [address] Phone Friday-Friday Closed for Lunch 7:30am-4:00pm 12:30pm-1:00pm Karan: [address] [place], [place] [address] Just west of [address] Phone //Friday Closed for Lunch 8:00am-5:00pm 12:00pm-1:00pm [place]: [facility] [address] [facility] [address] [place], [place] [address] [address] Just west of [facility] Phone Friday- Closed for Lunch Friday 8:00am-4:30pm 12:30pm-1:00pm 8:00am-12:00pm (Noon) [place]: [address] [place], [place] [address] Just off of the [facility] [address] exit Phone Friday-Friday Closed for Lunch 8:00am-5:00pm 12:00pm-1:00pm [place]: [place] [facility] [address] [place], [place] [address] [address] Phone Friday-Friday 7:30am-4:30pm [facility] [address] [place] [address] Parking lot is off of [address]. Phone M, T, TH, F Closed for Lunch Friday 7:30am-4:30pm 12:00pm-1:00pm 7:30am-11:30am [place] [place], [place] [address] In [facility] Phone x5 Friday-Friday 7:30am-3:00pm [facility] [address] [place] [address] Phone Friday-Friday 7:30am-4:30pm 8:00am-12:00pm (Noon) [facility] [address] [place], [place] [address] [employer] Phone Friday-Friday 7:30am-4:30pm 8:00am-12:00pm (Noon) [place] [address] [place], [place] [address] [address] from Harriet Chow Phone Friday-Friday Closed for Lunch 7:30am-4:30pm 12:00pm-1:00pm [facility] [address] [place] [address] Phone Friday-Friday 7:30am-4:30pm 8:00am-12:00pm (Noon) [place] [address] [facility] [address] [place], [place] [address] Just north of [facility] Phone Friday-Friday Closed for Lunch 7:30am-4:30pm 12:00pm-1:00pm [place] [address] [place] [address] Phone Friday-Friday 7:30am-5:00pm [facility] Professional Building [address] [place] [address] Across shared parking lot from [employer] Phone Friday-Friday 7:30am-4:30pm 8:00am-12:00pm (Noon) [facility] [address] [place] [address] Across from [employer] Phone Friday-Friday 7:30am-5:00pm [place]: [place] [address] Just north of the [place]. Phone Friday-Friday 7:30am-5:00pm documented in this encounter [facility] [employer] 03-12-2021 Note HNO ID: [id number] Author: Aria Tijerina PA-C Service: ? 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 who presents for an annual gynecologic exam without complaints. [employer]er Driver offered: Patient declines. Menarche: 13 yoa Menses: cycles every 28-30 days and 4 days of flow. Heavy bleeding: no Dysmenorrhea: occasional and tolerable Contraception: withdrawal HPV vaccine: Yes Last pap smear: never Sexually active: Yes, male partner History of STDS: None Patient concerns for STD exposure: No. 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 No abdominal pain, nausea, vomiting, diarrhea, or constipation. Bladder: No dysuria, gross hematuria, urinary frequency, urinary urgency, or incontinence. Breast: No breast lumps, nipple d/c, overlying skin changes, redness or skin retraction. Allergies and current medication updated:Yes Depression screening tool completed and reviewed. Based on score and interview, patient is not at risk for depression. Screening tool discussed with patient, and I recommended no further intervention at this time. EXAM: BP 102/58 Wt 136 lb 12.8 oz (62.1kg) LMP 03/12/2021 GENERAL: pleasant, in no apparent distress HEENT: Normocephalic and atraumatic NECK: Supple, full range of motion, no adenopathy and thyroid normal DERMATOLOGY: Normal, without lesions, non-icteric and non-hirsute BREAST: soft, non-tender, symmetric, no dominant mass, normal nipple-areolar complex, no lymphadenopathy and no nipple discharge CHEST: Clear to auscultation, Normal inspiratory effort, Regular rate and rhythm and No murmurs, clicks, rubs or gallops ABDOMEN: soft, non-tender and no masses PELVIC: external genitalia normal, normal Bartholin's glands, urethra, [place]'s glands, no vulvar lesions, no cervical lesions, current menses, small quantity blood, good vaginal support, physiologic discharge present, normal appearing perineal body and perianal region BIMANUAL: uterus normal size, shape and consistency, no adnexal masses, non-tender and no cervical motion tenderness NEURO: alert and oriented x3,exam grossly non-focal EXTREMITIES: normal ASSESSMENT/PLAN: Encounter Diagnosis ICD-10-CM 1. Screen for STD (sexually transmitted disease) Z11.3 GC/CHLAMYDIA DNA DET 2. General counseling and advice for contraceptive management Z30.09 1) Health maintenance: Pap starting at the age of 21. Safe sex practices reviewed. Nutrition, exercise, and routine health maintenance exams reviewed. HPV vaccine completed series.. 2) Contraception: withdrawal. Aware this is not an effective form of control with 24 pregnancies out of 100 women each year. Contraceptive options reviewed and information provided. She is currently not interested in another method at this time. Condoms and PNV encouraged. 3) STD screening: Accepted STD check for Gonorrhea and Chlamydia. 4) Follow up one year or sooner as needed. Aria Tijerina PA-C [facility] Diagnosis with fetus of unknown gestational age- Primary [facility]* Diagnosis Nausea and vomiting in - Primary Unspecified vomiting of , unspecified as to episode of care care, first trimester 10 weeks gestation of [facility] Diagnosis care in second trimester- Primary Encounter for routine screening for malformation using ultrasonics 13 weeks gestation of documented in this encounter [facility] Summary Purpose Family History No Family History Records FoundNo Family History Records FoundNo Family History Records Found Advance Directives No Advanced Directives Records FoundNo Advanced Directives Records FoundNo Advanced Directives Records Found Additional Source Comments INFORMATION SOURCE (unrecogn ized section and content) DATE CREATED AUTHOR AUTHOR'S ORGANIZ ATION 06/28/2021 [facility] DATE CREATED AUTHOR AUTHOR'S ORGANIZ ATION 04/04/2023 [facility] Reason for Visit (unrecogniz ed section and content) Reason Comments Routine Visit 13w2d, no c/o Reason Onset Date Comments Labs Only 04/02/2023 Rec'd records fo r pt but need actual lab results FOR RECORDS PERTAINING TO PATIENTS WHO ARE OR HAVE BEEN ENROLLED IN A CHEMICAL DEPENDENCY/SUBSTANCEABUSE PROGRAM, SOME INFORMATION MAY BE OMITTED. This clinical summary was aggregated from multiple sources. Caution should be exercised in using it in the provision of clinical care. This summary normalizes information from multiple sources, and as a consequence, information in this document may materially change the coding, format and clinical context of patient data. In addition, data may be omitted in some cases. CLINICAL DECISIONS SHOULD BE BASED ON THE PRIMARY CLINICAL RECORDS. [address] [employer] [facility]. provides no warranty or guarantee of the accuracy or completeness of information in this document.
== END | disposition home or self-care (01) ==
LOC: LABSPEC 10:55
PROVIDERS: Referring Provider Obstetrics & Gynecology; Visit Provider Obstetrics & Gynecology
DX: Z34.00 Encounter for supervision of normal first pregnancy, unspecified trimester (principal)
CPT/HCPCS: 87077; 87081; 87186

== ENCOUNTER 2023-06-02 04:30 | Inpatient (IN) | payer OTHER, SELFPAY ==
[2023-06-02] VITALS (39 sets, daily range): BP systolic 112–178; BP diastolic 54–105; PULSE 82–145; RESP 16; TEMP 36.7–37.7; O2SAT 81–99; BMI 29.9
--- OUTSIDE RECORDS SUMMARY | 2023-06-02 00:40 | XMS RPT_ITS | CCD ---
Author Name Unknown Address [address] [place] [address] Organization [facility] Care Team Providers Care Entry Level Accountant Name Role Phone Unavailable Primary Care Provider [...] index (BMI) [Ratio] 24.56 kg/m2 Stephan Saffell SAP PORTAL DEVELOPER - FIELD ENUMERATOR Work Phone: [employer] 12-19-2022 15:28-0400 Body weight 66.95 kg Stephan Saffell SAP PORTAL DEVELOPER - FIELD ENUMERATOR Work Phone: [employer] 12-19-2022 15:28-0400 Diastolic blood pressure 65 mm[Hg] Stephan Saffell SAP PORTAL DEVELOPER - FIELD ENUMERATOR Work Phone: [employer] 12-19-2022 15:28-0400 Heart rate 75 /min Stephan Saffell SAP PORTAL DEVELOPER - FIELD ENUMERATOR Work Phone: [employer] 12-19-2022 15:28-0400 Systolic blood pressure 124 mm[Hg] Stephan FanBridgell SAP PORTAL DEVELOPER - FIELD ENUMERATOR Work Phone: [employer] 11-21-2022 13:54-0400 Body height 165.1 cm Ana Beallsville PA Work Phone: [employer] 11-21-2022 13:37-0400 Body mass index (BMI) [Ratio] 23.3 kg/m2 Ana Beallsville PA Work Phone: [employer] 11-21-2022 13:37-0400 Body weight 63.5 kg Ana Beallsville PA Work Phone: [facility] 11-21-2022 13:37-0400 Diastolic blood pressure 60 mm[Hg] Ana Torre PA Work Phone: [facility] 11-21-2022 13:37-0400 Heart rate 60 /min Ana Vaughank PA Work Phone: [facility] [employer] 11-21-2022 13:37-0400 Systolic blood pressure 108 mm[Hg] Ana Torre PA Work Phone: [facility] Encounters Encounter Date Encounter Type Care Provider Facility Start: 04-02-2023 Telephone encounter Stephan moise SAP PORTAL DEVELOPER - FIELD ENUMERATOR Work Phone: [facility] Obstetrics & Gynecology Procedures Date Procedure Procedure Detail Performing Clinician Start: 11-22-2022 Adult depression scr eening assessment Stephan Duggan SAP PORTAL DEVELOPER - FIELD ENUMERATOR Work Phone: Start: 11-21-2022 Microscopic observat ion [Identifier] in Cervix by Cyto stain Stephan Duggan SAP PORTAL DEVELOPER - FIELD ENUMERATOR Work Phone: Plan of Treatment Date Care Activity Detail Author Start: 2050 Zoster Vaccines (1 of 2) Zoster Vacc sarah (1 of 2) [facility] Start: 11-21-2025 Screening for malign ant neoplasm of cervix Pap Smear [facility] Start: 11-23-2023 Depression Screening Depression Scre ening [facility] Start: 11-22-2023 Screening for Chlamy peterson trachomatis Chlamydia and Gonorrhea Screening [facility] Start: 11-19-2023 DTaP/Tdap/Td Vaccine s (7 - Td or Tdap) DTaP/Tdap/Td Vaccines (7 - Td or Tdap) [facility] Start: 01-29-2023 End: 01-29-2023 Patient encounter procedure [facility] Start: 01-06-2023 End: 01-06-2023 Patient encounter procedure 01/06/2023 3:00 PM EDT Routine [facility] [address] [place] [address] Saffell, Stephan, SAP PORTAL DEVELOPER - FIELD ENUMERATOR [address] [place] [address] [facility] Start: 12-19-2022 End: 12-19-2022 Patient encounter procedure 12/19/2022 3:20 PM EDT Routine [facility] [address] [place] [address] Stephan Duggan APRN - FIELD ENUMERATOR [address] [place] [address] [facility] Start: 12-19-2022 End: 12-20-2023 US for US OB 14+ weeks anatomy scan Imaging Routine Encounter for routine screening for malformation using ultrasonics Expected: 12/19/2022, Expires: 12/20/2023 [facility] Work Phone: Immunizations Immunization Date Immunization Notes Care Provider [facility] 02-22-2020 influenza virus vacc ine, unspecified formulation Marybel GODINEZ Work Phone: [facility] Payers Date Payer Category Payer Unknown [employer] [id number] 2022-Present [address] [place] [address] Commercial [id number] 2022 Unknown [id number] 2022 Private Health Insurance ASHLEY ZHENG [id number] 2022-Present [address] [place] [address] Commercial [id number] 2022 Private Health Insurance [id number] Social History Date Type Detail Facility Start: 10-21-2022 Tobacco smoking status NHIS Never sm oked tobacco [facility] Start: 10-21-2022 Tobacco use and exposure Smokeless t obacco non-user [facility] Start: 10-21-2022 End: 12-19-2022 Alcohol intake Lifetime non-drinker (finding) [facility] Start: 10-21-2022 End: 12-19-2022 History of Social function [facility] Start: 10-21-2022 End: 12-19-2022 Tobacco use panel [facility] Start: 2000 Sex Assigned At Not on file [facility] Start: 10-01-2022 [facility] Start: 11-11-2022 End: 12-19-2022 Exposure to SARS-CoV-2 (event) Not sure [facility] Goals Date Patient Goal Desired Activity /State Personal health goal Clinical Notes 03-12-2021 to 04-02-2023 Telephone Encounter - Black Perales MA - 04/02/2023 3:20 PM ESTTelephone Encounter - Black Perales MA - 04/02/2023 3:20 PM ESTTelephone Encounter - Jael Marley - 04/02/2023 2:52 PM EST Note Date & Type Note Facility 04-02-2023 Telephone encounter Note Lab results refaxed. [facility] 04-02-2023 Miscellaneous Notes Lab results refaxed. Name of caller: Archana Contact phone number: [phone] Relationship to Patient: [facility] Provider: Stephan Duggan Practice: [facility] Chief Complaint/Reason for Call: Archana states records were rec'd for pt but they need actual lab results. Please fax to [phone] Best time of day caller can be reached: Any Patient advised that office/PCP has 24-48 business hours to return their call: Yes documented in this encounter [facility] 04-02-2023 Telephone encounter Note Name of caller: Archana Contact phone number: [phone] Relationship to Patient: [facility] Provider: Stephan Duggan Practice: [facility] Chief Complaint/Reason for Call: Archana states records were rec'd for pt but they need actual lab results. Please fax to [phone] Best time of day caller can be reached: Any Patient advised that office/PCP has 24-48 business hours to return their call: Yes [facility] 12-19-2022 Evaluation + Plan note Associated Problem(s): care, antepartum Advised patient to contact the office with any vaginal bleeding, pelvic pain or N/V. RH+ Reviewed labs Did not have genetic testing done DAWNA 3 weeks [facility] 12-19-2022 Miscellaneous Notes Associated Problem(s): care, antepartum Advised patient to contact the office with any vaginal bleeding, pelvic pain or N/V. RH+ Reviewed labs Did not have genetic testing done DAWNA 3 weeks documented in this encounter [facility] 12-19-2022 History of Presen t illness Narrative [...] 01/09/2023) for DAWNA. documented in this encounter [facility] [employer] 11-21-2022 History of Presen t illness Narrative [...] scheduled to see Ana AVILES following ultrasound. [id number] Varicella or vaccinated for varicella as a child: yes. Cats: yes. If yes, litter box precautions given. Desires tubal ligation: no. Plans to breastfeed. 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 Patient with prior history of : no [...] labs and cultures ordered. Lab Locations reviewed. [facility] Maternity Services guide given. New OB education [...] and chief complaint. documented in this encounter [facility] 11-21-2022 Instructions STEFAN Krause - 11/21/2022 1:30 PM EDT Obstetrical Calendar Weeks Gestation: Discussion and Testing 4-8 weeks - Visit with provider to establish hcg blood levels and order ultrasound. 6-13 Weeks - Dating and Viability Ultrasound and Visit with provider to discuss US results. 10-13 weeks - Initial OB intake and physical with a Elementary Assistant Teacher or Nurse Practitioner. Obtain complete medical, genetic [...] to risk factors. Discuss Physician and Nurse Elementary Assistant Teacher options Discuss hospital for delivery 10-14 Weeks [...] test if done Discuss plans, preregistration, choosing county library director, taking childbirth classes 30 - 36 weeks [...] as feta, Brie, Camembert, blue-veined cheeses and Nepalese-style cheeses. Limit deli foods like prepared salads [...] of farm-raised or wild salmon from the [place] or [place], not from the [place]. Avoid raw [...] What is genetic testing? genetic testing gives pblidxb-fq-lm information about whether their fetus has certain [...] commonly affects people of Eastern and Central Hindu, Cajun, and [place] descent, but it can occur in anyone. [...] of life. Copyright October 2016 by the [employer] ========= Panorama [...] be tested again for that disorder. When dry cans operator screening be done? Some people decide to [...] are negative.. Copyright July 2016 by the [employer] ======== Low Risk Medications This is a listing of low risk, over the counter medication that you may take during your for the following symptoms: Cough, Cold, Congestion Benadryl Sudafed: brand name or generic (pseudoephedrine), buy the one you have to get behind the pharmacy counter and show your spike driver's license to purchase WARNING! Do NOT take Sudafed if you have high blood pressure Robitussin Mucinex Any throat or cough drops, or sprays Chlor-Trimeton Vicks Nasal Sprays Taney Nasal Tonalea (saline nose spray) Allergy Medication Zyrtec, Claritin Pain Reliever and Fever Ground Nuclear Weapons Assembly Officer Tylenol, Extra Strength Tylenol, Acetaminophen, Panadol, Tempra, [...] illness, thyroid disease, or gallbladder disease. Your assignment desk editor may suspect that you have one of [...] B6 and doxylamine--Vitamin B6 is a safe, bicz-xqu-qvzmepo treatment that may be tried first. Doxylamine, a medication found in osgi-nih-fgodaqz sleep aids, may be added if vitamin [...] or limited safety information. You and your assignment desk editor or other members of your health care [...] healthcare provider. Copyright March 2015 by the [employer] Information: Do's and Don'ts Even with all the sanya and anticipation can bring, it is not uncommon for a yatjtr-hz-fd to have some questions and concerns -- [...] a nutrition consultation for you with our entertainment manager. Do: Maintain a balanced diet According to [...] include meat, fish, eggs, almonds cottage cheese, Romanian yogurt, low fat cheese and low fat [...] talk with her health care provider or molder fitting about restricting her intake of caffeine and artificial sweeteners. All alcohol should be avoided in . Do: Exercise during : Regular exercise during , with the approval of your physician or molder fitting, can often help to minimize the daily [...] complications should consult with their physician or molder fitting before beginning any exercise during . All women should be evaluated by their physician or molder fitting before beginning or continuing an exercise program [...] the type of work performed and the dmqkxh-do-na's medical condition. Taking proper precautions to avoid these risks on the job can help keep you and your baby healthy throughout the . The [employer] recommends the following for working [...] During office hours please call the office: [phone] After hours answering service phone number: [phone] Please call if you experience any of [...] or the answering service after hours. ========= [facility] Midwifery Service Before you bring your baby into the world, a lot of decisions have to be made. One of those decisions is whether or not to use a Certified Nurse Elementary Assistant Teacher (CNM). Certified Nurse Midwives are registered nurses who have received a master s degree and advanced training in women s health and midwifery. They passed a national certification examination and are licensed in the [facility]. Certified Nurse Midwives write prescriptions and [...] option if you have a Certified Nurse Elementary Assistant Teacher. You will work with your CNM to determine the best delivery options for you. However, if medical intervention is needed, your molder fitting will take the steps necessary to ensure a healthy outcome for you and your baby. Certified Nurse Midwives are always airconditioning engineer with a physician in case intervention is needed, for instance a Section, vacuum or forceps assisted . Our physician would perform those procedures and the CNM remains present with you for support. The laboring woman receives the best possible care with this team based approach. The CNM section rate at [facility] is only 8-9%, which means most mothers have a normal vaginal . [facility] offers the largest midwifery team in the [facility]. This team is available any time, day or night for your delivery. The molder fitting that is airconditioning engineer the day you labor will be the one who attends the . Throughout your you have the option to meet the various midwives or simply go to the office that is most convenient for you. Not all midwives see clients in every office. Tish Zamora, SAP PORTAL DEVELOPER-CNM Rossi Burciaga, SAP PORTAL DEVELOPER-CNM Sarah Lazaro, SAP PORTAL DEVELOPER-CNM Lili Nelson, SAP PORTAL DEVELOPER-CNM Leora Dueñas, SAP PORTAL DEVELOPER-CNM Talisha Shepherd SAP PORTAL DEVELOPER-CNM Ronda Kumar, SAP PORTAL DEVELOPER-CNM Jud Rivera, SAP PORTAL DEVELOPER-CNM * Cathy Cerda, SAP PORTAL DEVELOPER-CNM Bharti Quintanilla, SAP PORTAL DEVELOPER-CNM Marybel Suggs SAP PORTAL DEVELOPER-CNM Shayy Saldaña, SAP PORTAL DEVELOPER-CNM * Homa Jones, SAP PORTAL DEVELOPER-CNM * *Office-based only midwives, do not attend births Currently, 28/10 midwifery coverage while in labor is only available at [facility]. Do you want more information about midwives? Discover more information for you and your family at the [employer] (ACNM) web site at [...] cough drops, or sprays Vicks Nasal Sprays Taney Nasal Tonalea (saline nose spray) Allergy Medication Zyrtec, Claritin Pain Reliever and Fever Ground Nuclear Weapons Assembly Officer Tylenol, Extra Strength Tylenol, Acetaminophen, Panadol, Tempra, [...] Sleep Time Tea documented in this encounter [facility] 10-21-2022 History of Presen t illness Narrative [...] that she can find the results on Factor.[employer] and that I will follow up with a Factor[employer] message Dating and viability US ordered NOB [...] stated that they are currently in the [facility]. If the patient is a minor, [...] that she can find the results on [employer] and that I will follow up with a [employer] message Dating and viability US ordered NOB [...] reviewed if available. documented in this encounter [facility] 10-21-2022 Instructions Marybel Suggs CNM - 10/21/2022 2:15 PM EDT Obstetrical Calendar Weeks Gestation: Discussion and Testing 4-8 weeks - Visit with provider to establish hcg blood levels and order ultrasound. 6-13 Weeks - Dating and Viability Ultrasound and Visit with provider to discuss US results. 10-13 weeks - Initial OB intake and physical with a Elementary Assistant Teacher or Nurse Practitioner. Obtain complete medical, genetic [...] to risk factors. Discuss Physician and Nurse Elementary Assistant Teacher options Discuss hospital for delivery 10-14 Weeks [...] test if done Discuss plans, preregistration, choosing county library director, taking childbirth classes 30 - 36 weeks [...] What is genetic testing? genetic testing gives zlkdtnd-pd-el information about whether their fetus has certain [...] What is genetic testing? genetic testing gives shmaqdk-vl-jr information about whether their fetus has certain [...] commonly affects people of Eastern and Central Hindu, Cajun, and [place] descent, but it can occur in anyone. [...] of life. Copyright October 2016 by the [employer] How to decide which tests are right for you The [employer] recommends that [...] be tested again for that disorder. When dry cans operator screening be done? Some people decide to [...] be found online in more detail at: [email or web address]/tests/prep arent/preparent-trio How accurate is carrier screening? No [...] are negative.. Copyright July 2016 by the [employer] ======== Low Risk Medications This is a listing of low risk, over the counter medication that you may take during your for the following symptoms: Cough, Cold, Congestion Benadryl Sudafed: brand name or generic (pseudoephedrine), buy the one you have to get behind the pharmacy counter and show your spike driver's license to purchase WARNING! Do NOT take Sudafed if you have high blood pressure Robitussin Mucinex Any throat or cough drops, or sprays Chlor-Trimeton Vicks Nasal Sprays Taney Nasal Tonalea (saline nose spray) Allergy Medication Zyrtec, Claritin Pain Reliever and Fever Ground Nuclear Weapons Assembly Officer Tylenol, Extra Strength Tylenol, Acetaminophen, Panadol, Tempra, [...] illness, thyroid disease, or gallbladder disease. Your assignment desk editor may suspect that you have one of [...] B6 and doxylamine--Vitamin B6 is a safe, fheg-saa-heuopki treatment that may be tried first. Doxylamine, a medication found in ccjo-dci-usaeeyw sleep aids, may be added if vitamin [...] or limited safety information. You and your assignment desk editor or other members of your health care [...] healthcare provider. Copyright March 2015 by the [employer]nec[employer] === [facility] Midwifery Service Before you bring your baby into the world, a lot of decisions have to be made. One of those decisions is whether or not to use a Certified Nurse Elementary Assistant Teacher (CNM). Certified Nurse Midwives are registered nurses who have received a master s degree and advanced training in women s health and midwifery. They passed a national certification examination and are licensed in the [facility]. Certified Nurse Midwives write prescriptions and [...] option if you have a Certified Nurse Elementary Assistant Teacher. You will work with your CNM to determine the best delivery options for you. However, if medical intervention is needed, your molder fitting will take the steps necessary to ensure a healthy outcome for you and your baby. Certified Nurse Midwives are always airconditioning engineer with a physician in case intervention is needed, for instance a Section, vacuum or forceps assisted . Our physician would perform those procedures and the CNM remains present with you for support. The laboring woman receives the best possible care with this team based approach. The CNM section rate at [facility] is only 8-9%, which means most mothers have a normal vaginal . [facility] offers the largest midwifery team in the [facility]. This team is available any time, day or night for your delivery. The molder fitting that is airconditioning engineer the day you labor will be the one who attends the . Throughout your you have the option to meet the various midwives or simply go to the office that is most convenient for you. Not all midwives see clients in every office. Tish Zamora SAP PORTAL DEVELOPER-CN Rossi Burciaga, SAP PORTAL DEVELOPER-CN Sarah Lazaro, SAP PORTAL DEVELOPER-CN Lili Nelson, SAP PORTAL DEVELOPER-CN Leora Dueñas, SAP PORTAL DEVELOPER-CN Ronda Kumar, SAP PORTAL DEVELOPER-CN Jud Rivera, [facility] * Libra Degroot, [facility]CN Cathy Cerda [facility]-CN Bharti Quintanilla, SAP PORTAL DEVELOPER-CN Marybel Suggs, SAP PORTAL DEVELOPER-CN Shayy Saldaña, [facility] * Homa Jones, [facility] * *Office-based only midwives, do not attend births Currently, 28/10 midwifery coverage while in labor is only available at [facility]. Do you want more information about midwives? Discover more information for you and your family at the [employer] (ACNM) web site at www.[email or web address] BrandsmentofTruth.[email or web address]. Check out the video about Midwives and the Care They Provide at http://bit.ly/MidwivesCare-video How to contact us: During office hours please call the office: [phone] After hours answering service phone number: [phone] Please call if you experience any of [...] service after hours. [facility] Locations (Previously [employer]): SITE ADDRESS DIRECTIONS TELEPHONE/FAX Hours of Operation [facility] [address] [place] [address] [address] [place] Phone Friday-Friday 7:00am-5:00pm 8:00am-12:00pm (Noon) [facility] [address] [place], [place] [address] Professional Building next to [facility] Phone Friday-Friday Closed for Lunch 7:30am-4:30pm 12:30pm-1:30pm [place]an[place]: [address] [address] former [facility] Phone Friday-Friday 7:30am-4:30pm Karan[place]bert: [address] [place] [address] Phone Friday-Friday Closed for Lunch 7:30am-4:00pm 12:30pm-1:00pm Karan: [address] [place], [place] [address] Just west of [address] Phone //Friday Closed for Lunch 8:00am-5:00pm 12:00pm-1:00pm [place]: [facility] [address] [facility] [facility] [address] [place], [place] [address] [address] Just west of [facility] Phone Friday- Closed for Lunch Friday 8:00am-4:30pm 12:30pm-1:00pm 8:00am-12:00pm (Noon) [place]: [address] [place], [place] [address] Just off of the [facility] [address] exit Phone Friday-Friday Closed for Lunch 8:00am-5:00pm 12:00pm-1:00pm [place]: [address] [place] [facility] [address] [place], [place] [address] [address] Phone Friday-Friday 7:30am-4:30pm [facility] [address] [place] [address] Parking lot is off of [address]. Phone M, T, TH, F Closed for Lunch Friday 7:30am-4:30pm 12:00pm-1:00pm 7:30am-11:30am [place] [place], [place] [address] In [facility] Phone a2 Friday-Friday 7:30am-3:00pm [facility] [address] [place] [address] Phone Friday-Friday 7:30am-4:30pm 8:00am-12:00pm (Noon) [facility] [address] [place], [place] [address] Across [address] from [facility] Phone Friday-Friday 7:30am-4:30pm 8:00am-12:00pm (Noon) [facility] [address] [place], [place] [address] [address] from [facility] Phone Friday-Friday Closed for Lunch 7:30am-4:30pm 12:00pm-1:00pm [facility] [address] [place] [address] Phone Friday-Friday 7:30am-4:30pm 8:00am-12:00pm (Noon) [facility] [address] [place], [place] [address] Just north of [facility] Phone Friday-Friday Closed for Lunch 7:30am-4:30pm 12:00pm-1:00pm [place] [address] [place] [address] Phone Friday-Friday 7:30am-5:00pm [facility] [address] [place] [address] Across shared parking lot from [employer] Phone Friday-Friday 7:30am-4:30pm 8:00am-12:00pm (Noon) [facility] [address] [place] [address] Across from [employer] Phone Friday-Friday 7:30am-5:00pm [place]: [place] [address] Just north of the [place]ery. Phone Friday-Friday 7:30am-5:00pm documented in this encounter [facility] [employer] 03-12-2021 Note HNO ID: [id number] Author: Aria Tijerina PA-C Service: ? Author Type: Physician Pointing Machine Operator Type: Progress Notes Filed: 03/12/2021 12:29 PM Note Text: Carlitos is a 20 year old G0. who presents for an annual gynecologic exam without complaints. Dowel Pointer offered: Patient declines. Menarche: 13 yoa Menses: cycles every 28-30 days and 4 days of flow. Heavy bleeding: no Dysmenorrhea: occasional and tolerable Contraception: withdrawal HPV vaccine: Yes Last pap smear: never Sexually active: Yes, male partner History of STDS: None Patient concerns for STD exposure: No. Time with current partner: 4 yr Number of lifetime partners: 1 OB History G0 Umbrella Repairer History LMP: 03/12/2021, Having periods Age at Menarche: Age at First : Age at Menopause: Umbrella Repairer History Comments: Sexual Activity: Yes; No partner [...] external genitalia normal, normal Bartholin's glands, urethra, Gilboa's glands, no vulvar lesions, no cervical lesions, [...] or sooner as needed. Aria Tijerina PA-C [facility] DATE CREATED AUTHOR AUTHOR'S ORGANIZ ATION 06/28/2021 [facility] DATE CREATED AUTHOR AUTHOR'S ORGANIZ ATION 04/04/2023 [facility] Reason for Visit (unrecogniz [...] BE BASED ON THE PRIMARY CLINICAL RECORDS. [facility]. provides no warranty or guarantee of the accuracy or completeness of information in this document.
[2023-06-02 01:20] LABS: ROM Internal Control Test YES-OK TO RESULT pt. (Internal QC)
[2023-06-02 01:21] LABS: ROM Patient Test POSITIVE (Negative)
--- NOTE | 2023-06-02 02:00 | NURSING ---
ROM collected and positive, although bloody. provider plans to come at 0700 for sterile spec exam.
[2023-06-02] MEDS: Lactated Ringers 1,000 ML 50 ML IV (04:40)
[2023-06-02 05:06] LABS: Absolute Lymphocyte Count 1.85 X10^3/uL (0.83-4.51); Absolute Neutrophil Count 9.4 X10^3/uL (2.0-7.7); Basophil# 0.04 X10^3/uL; Basophil% 0.3 % (0-1); Eosinophil# 0.13 X10^3/uL; Hematocrit 36.7 % (37-47); Hemoglobin 12.4 g/dL (12.0-15.0); Lymphocyte # 1.85 X10^3/ul (0.83-4.51); Lymphocyte % 14.9 % (19-41); Mean Corp Hgb Conc 33.8 g/dL (32-36); Mean Corpuscular Hgb 31.3 pg (27.0-32.0); Mean Corpuscular Volume 92.7 fL (81-99); Mean Platelet Vol. 9.4 fl (6.2-12.0); Monocyte% 7.3 % (0-10); NRBC Flagged by Analyzer 0 % (0-5); Neutrophil # 9.41 X10^3/uL (2.7-7.7); Neutrophil % 75.9 % (47-70); Platelet Count 214 K/mm3 (150-450); RBC Distribution Width CV 12.1 % (11.6-14.6); RBC Distribution Width SD 41.8 fl (35.1-43.9); Red Blood Count 3.96 M/mm3 (4.2-5.4); White Blood Count 12.4 K/mm3 (4.4-11.0)
[2023-06-02] MEDS: Penicillin G Pot 5,000,000 UNITS in 0.9% Normal Saline (100mL MB+) 100 ML 150 UNITS IV (05:41)
[2023-06-02 05:54] LABS: Syphilis Antibodies Non-reactive
[2023-06-02] MEDS: Ondansetron 4 MG/2 ML Vial IV (06:50)
[2023-06-02] MEDS: LACTATED RINGERS 500 ML 999 ML IV (06:55)
[2023-06-02] MEDS: fentaNYL-bupivacaine (epidural) 100 ML BAG EPIDURAL (07:35)
--- NOTE | 2023-06-02 08:05 | HP.PCM.OB_ITS ---
HPI - General General Date of Admission: 06/02/23 Date of Service: 06/02/23 Chief Complaint: leaking of fluid HPI Narrative CARLITOS DODGE, is a 22 F who presents at 36.6 leaking of fluid with small gush at 1130pm 06/01/2023, +FM no VB, irregular ctx at home. upon observation ROM plus was bloody without any signs of gross rupture, observation was planned, pt became increasing uncomfortable at 4:30am and cervical exam with significant changes. admitted at this time of cervical change. GBS collected in office last week is pending results. Maternal Data Information THEODORA Calculator Estimated Delivery Date Method Current WG Current Estimate 06/24/23 LMP (Certain) 36w 6d Other Estimates 06/18/23 Manual 37w 5d PFSH PFSH Medical History Skin tag Home Medications multivitamin no.47-iron fum 27 mg-folate no.1 1 mg-dha 300 mg capsule (PNV-DHA) 1 cap PO 01/06/23 [History Last Taken 06/02/23 00:00] Allergy/AdvReac Type Severity Reaction Status Date / Time No Known Allergies Allergy Verified 06/02/23 00:54 Family History Grandmother Ovarian cancer Social History adopted: No household members: spouse housing: apartment current occupational status: employed current occupation: [employer] employee pets and animals: Yes (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) pets and animals: cat(s) and other history of recent travel: No sexually active: Yes Smoking Status: Never smoker alcohol intake: never substance use type: does not use caffeine: Yes caron/worship: Islam seatbelt use: always do you feel safe at home: Yes additional social history: Spouse - Tino 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 [employer] History 1 Elective abortions Hx Para 0 Spontaneous abortions Hx # Term Pregnancies Ectopic pregnancies Hx # Pregnancies Multiple births # of living children Visit Details Expected Delivery Route/Plan Labor Preferences- CB/BF classes: encourage labor support person: Tino labor intervention preferences: [] pain management options preferred: undecided cut cord/dad catch: maybe : yes PP control planned: discussed discussed possible routes of delivery and associated risks: [] special requests: [] Plans Covid status: discussed Flu vaccine: declines Tdap vaccine: declines Rhogam: na LARC form signed: yes Problem list reviewed and updated with the most current plan of care details and appropriate orders placed. Relevant counseling for the gestational age provided. Continue routine care and follow up unless otherwise noted in visit notes/problem list details OB Flowsheet Initial Weight: Not Recorded Date -?-?-?-?-?-?-?-?-?-?-?-?- EGA Weight BP Urine Prot -?-?--?-?-?-?-?-?-?-?-?-?- Glucose FHR FuHt Pres Dilation -?-?-?-?-?-?-?-?--?-?-?-?- Effaced St Visit Note 01/06/23 -?-?-?-?-?-?-?-?-?-?-?-?- 15w 6d 149 lb 4 oz 93/61 -?-?-?-?-?-?-?-?-?-?-?-?- 140 16 -?-?-?-?-?-?-?-?-?-?-?-?- LC- [facility] from [facility], records are pending. declines afp. MFM anatomy ordered. 02/03/23 -?-?-?-?-?-?-?-?-?-?-?-?- 19w 6d 158 lb 4 oz 119/77 Nega tive -?-?-?-?-?-?-?-?-?-?-?-?- Negative 134 -?-?-?-?-?-?-?-?-?-?-?-?- JV- no lof, vagi nal bleeding, or dec fm. no complaints. records from [facility] were incomplete and only included patient education and due date. need labs. if do not have it by the time she comes in for gct, will rpt panel. 03/05/23 -?-?-?-?-?-?-?-?-?-?-?-?- 24w 1d 163 lb 6 oz 117/72 Nega tive -?-?-?-?-?-?-?-?-?-?-?-?- Negative 135 24 -?-?-?-?-?-?-?-?-?-?-?-?- JV- still needs labs. will order with her 3rd trimester labs. pt thinks is rh pos. no complaints today. 04/02/23 -?-?-?-?-?-?-?-?-?-?-?-?- 28w 1d 167 lb 114/70 Negative -?-?-?-?-?-?-?-?-?-?-?-?- Negative 141 28 -?-?-?-?-?-?-?-?-?-?-?-?- MH-No VB, LOF. G ood FM. 28 wk labs, larc. Declines tdap 04/16/23 -?-?-?-?-?-?-?-?-?-?-?-?- 30w 1d 171 lb 8 oz 118/66 Nega tive -?-?-?-?-?-?-?-?-?-?-?-?- Negative 153 30 -?-?-?-?-?-?-?-?-?-?-?-?- MH-No VB, LOF. G ood FM. Doing well. Will complete PN labs today 04/30/23 -?-?-?-?-?-?-?-?-?-?-?-?- 32w 1d 175 lb 121/77 Negative -?-?-?-?-?-?-?-?-?-?-?-?- Negative 145 32 Cephalic -?-?-?-?-?-?-?-?-?-?-?-?- JV- no lof, vagi nal bleeding, or dec fm. TDAP today. 05/14/23 -?-?-?-?-?-?-?-?-?-?-?-?- 34w 1d 177 lb 6 oz 106/70 Nega tive -?-?-?-?-?-?-?-?-?-?-?-?- Negative 138 34 -?-?-?-?-?-?-?-?-?-?-?-?- JV- no lof, vagi nal bleeding, or dec fm. plan for gbs next visit. 05/29/23 -?-?-?-?-?-?-?-?-?-?-?-?- 36w 2d 179 lb 113/77 Negative -?-?-?-?-?-?-?-?-?-?-?-?- Negative 140 36 Cephalic 1 .5 -?-?-?-?-?-?-?-?-?-?-?-?- 60 -2 SM- no vb lof good fm no regular ctx gbs done NST FHR Rate Baby A Baseline: 120-130 Variability:: Moderate Accelerations:: 15 x 15 Decelerations:: Variable (occ) NST Reactive:: Yes FHR Category:: Category I and Category II Uterine Activity:: q2-5 minutes Vital Signs Vital Signs Vital Signs: 06/02/23 00:57 06/02/23 00:57 06/02/23 01:00 Temperature Temperature Source Temporal Pulse Rate 94 Blood Pressure 126/76 H BP Systolic 126 BP Diastolic 76 Pulse Ox 06/02/23 01:00 06/02/23 01:00 06/02/23 02:32 Temperature 99.0 F Temperature Source Pulse Rate Blood Pressure 131/76 H BP Systolic 131 BP Diastolic 76 Pulse Ox 98 06/02/23 02:32 06/02/23 02:33 06/02/23 02:33 Temperature Temperature Source Temporal Pulse Rate 82 Blood Pressure BP Systolic BP Diastolic Pulse Ox 98 06/02/23 02:33 06/02/23 04:21 06/02/23 04:21 Temperature 99.1 F Temperature Source Pulse Rate 100 Blood Pressure 137/75 H BP Systolic 137 BP Diastolic 75 Pulse Ox 06/02/23 04:21 06/02/23 04:21 06/02/23 05:14 Temperature 98.1 F Temperature Source Temporal Pulse Rate Blood Pressure 130/76 H BP Systolic 130 BP Diastolic 76 Pulse Ox 06/02/23 05:14 06/02/23 05:14 06/02/23 05:14 Temperature Temperature Source Temporal Pulse Rate 100 Blood Pressure BP Systolic BP Diastolic Pulse Ox 99 06/02/23 05:14 06/02/23 05:14 06/02/23 06:17 Temperature 99.5 F H Temperature Source Pulse Rate Blood Pressure 126/68 H BP Systolic 126 BP Diastolic 68 Pulse Ox 99 06/02/23 06:17 06/02/23 06:17 06/02/23 06:17 Temperature 99.8 F H Temperature Source Temporal Pulse Rate 95 Blood Pressure BP Systolic BP Diastolic Pulse Ox 06/02/23 06:42 06/02/23 06:42 06/02/23 06:47 Temperature Temperature Source Pulse Rate 112 H 82 Blood Pressure BP Systolic BP Diastolic Pulse Ox 98 06/02/23 06:47 06/02/23 07:25 06/02/23 07:26 Temperature Temperature Source Pulse Rate Blood Pressure 131/63 H BP Systolic 131 BP Diastolic 63 Pulse Ox 98 81 06/02/23 07:26 06/02/23 07:26 06/02/23 07:31 Temperature Temperature Source Pulse Rate 99 Blood Pressure 119/78 BP Systolic 119 BP Diastolic 78 Pulse Ox 99 06/02/23 07:31 06/02/23 07:31 06/02/23 07:36 Temperature Temperature Source Pulse Rate 95 Blood Pressure 121/55 H BP Systolic 121 BP Diastolic 55 Pulse Ox 94 06/02/23 07:36 06/02/23 07:36 06/02/23 07:36 Temperature Temperature Source Tympanic Pulse Rate 85 Blood Pressure BP Systolic BP Diastolic Pulse Ox 95 06/02/23 07:36 06/02/23 07:40 06/02/23 07:40 Temperature 98.3 F Temperature Source Pulse Rate 97 Blood Pressure 115/60 BP Systolic 115 BP Diastolic 60 Pulse Ox 06/02/23 07:40 06/02/23 07:41 06/02/23 07:41 Temperature Temperature Source Pulse Rate 97 Blood Pressure BP Systolic BP Diastolic Pulse Ox 92 99 06/02/23 07:45 06/02/23 07:45 06/02/23 07:46 Temperature Temperature Source Pulse Rate 94 101 H Blood Pressure 112/58 L BP Systolic 112 BP Diastolic 58 Pulse Ox 06/02/23 07:46 06/02/23 07:47 06/02/23 07:47 Temperature Temperature Source Pulse Rate 96 Blood Pressure BP Systolic BP Diastolic Pulse Ox 99 85 Weight Weight: 180 lb 5.41 oz Body Mass Index (BMI) 29.9 Physical Exam Const alert, oriented x3 and no apparent distress General Appearance: cooperative, comfortable and well kempt Orientation / Consciousness: awake and oriented to person Exam Limitations: no limitations HEENT normocephalic Neck full ROM Chest inspection of chest normal Resp normal respiratory effort, normal air movement and no retractions Effort and Inspection: able to speak in complete sentences and symmetric chest movement Cardio regular rate Peripheral Pulses: pulses 2+ throughout GI normal to inspection, nondistended, normoactive bowel sounds Inspection: gravid no CVA tenderness and appearance of the vagina normal External Female Exam: normal appearance of the urethra; Negative for external lesion OB / External & Speculum: external exam normal Manual OB Exam: estimated gestational size appropriate, presentation ceph alic, dilated 8, effaced 95 and station +1 Uterus Palpation: Negative for uterus tender Extremity normal to inspection Skin no rashes or lesions noted Neuro deep tendon reflexes 2+ bilaterally and gait normal Motor Exam: strength 5/5 throughout and clonus absent Psych Activity / Motor Behavior: appropriate eye contact Speech: normal speech Labs Labs Labs: Blood Type A POSITIVE Antibody Screen NEGATIVE Hct 36.7 % (37-47) L Hgb 12.4 g/dL (12.0-15.0) Pap Smear Negative Obstetrics Ultrasound Syphilis Total Ab Non-reactive Rubella IgG Antibody Reactive (Nonreactive) Hep Bs Antigen Non-Reactive (Nonreactive) Hepatitis C Antibody Non-Reactive (Nonreactive) HIV 1&2 Antibody Non-Reactive (Nonreactive) Glucose 1 Hr 50 gm 91 mg/dL (70-140) Assessment & Plan (1) premature rupture of membranes (PPROM) delivered, current hospitalization: COMMENT: GBS unknown- treat with PCN (2) Supervision of normal first : QUALIFIERS: Trimester: third trimester Qualified Code(s): Z34.03 - Encounter for supervision of normal first , third trimester COMMENT: PRR(NOB labs scanned) THEODORA 06/24/2023. : Tino (3) : QUALIFIERS: Weeks of gestation: 36 weeks Qualified Code(s): Z3A.36 - 36 weeks gestation of COMMENT: declines genetic screening. nl anatomy. PLAN: Plan Patient presents PPROM with contractions with change in cervical exam overnight. IAL, plan expectant management for , pitocin PRN if needed. Pain management: now with epidural. GBS unknown plan IV PCN. GBS has been recollected this admission Management of any complications: none I have reviewed the [facility] and made any clinically relevant updates.Dr. Saunders updated on admission, exam and POC. co-management for .
[2023-06-02] MEDS: Oxytocin 10 UNITS/ML Vial IM (10:04)
[2023-06-02] MEDS: Oxytocin 15 Units/NS 250ml 15 UNITS/250 ML IV.SOLN 83 UNITS IV (10:05)
--- NOTE | 2023-06-02 10:19 | EX.PCM.OBRPT ---
Maternal Data Information THEODORA Calculator Estimated Delivery Date Method Current WG Current Estimate 06/24/23 LMP (Certain) 36w 6d Other Estimates 06/18/23 Manual 37w 5d Gestational age: 36.6 Vaginal Delivery Maternal Presentation Maternal Presentation: Spontaneous Rupture of Membranes Maternal Presentation: admitted with PPROM at 0130, made cervical change. GBS treated. urge to push. Operative Information Date of Procedure: 06/02/23 Pre-Operative Diagnosis: see problem list Surgery / Procedure Performed: Spontaneous Vaginal Delivery Type of Anesthesia: Epidural Estimated Blood Loss: 400 Time of Delivery: 09:59 Findings Description of Procedure: Patient began pushing and delivered the head in the PAU presentation. The head was delivered atraumatically and a loose nuchal cord ?2 was identified and easily reduced over the 's head along with left hand presentation by neck. The anterior and posterior shoulders delivered without complication followed by the rest of the infant and the infant was placed on the maternal abdomen.left hand and arm supported on through Delayed cord clamping was employed for approximately 60 seconds. Cord was clamped and cut and gentle traction was applied to the cord and the placenta delivered spontaneously immediately following it was noted to be intact with three-vessel cord. The perineum and vagina were inspected and noted to have small vaginal laceration with hymen separation, repaired with 3-0. EBL was 400cc. Patient and infant tolerated delivery well. Presentation: Vertex Amniotic Membrane Rupture Type: Spontaneous Time of Membrane Rupture: 2330 Amniotic Fluid Description: Clear Placental Delivery Description: Spontaneous Placenta Disposition: [facility] Cord Vessel Description: 3 Vessels Cord Entanglement: Around neck x 2, loose Nuchal Cord Compression: Without compression A Gender: Male (1 minute): 8 (5 minute): 9 Delayed Cord Clamping: Yes Post Vaginal Delivery Medications Given After Delivery: IV Pitocin and IM Pitocin Laceration: Vaginal Extension/lac Procedures Urinary/Genital [id number]: [id number] Vaginal Delivery [facility]
--- NOTE | 2023-06-02 13:51 | DCINST_ITS ---
Discharge Instructions Diet Discharge Diet: No restrictions Activity Discharge Activity: May Not Drive and May Shower May resume sexual activity in: 6 weeks Weight Bearing Status: Full weight bearing Dressing / Incision Call your doctor if your incision/area has: Sudden Increased Bleeding, Increased Pain/ Swelling and Foul Smelling Discharge Call your doctor if you observe: Fever of 101 or Higher, Numbness or Tingling, Change in Color, Inability to urinate, Inability to have a bowel movement, Using more than 1 pad per hour, Shortness of breath, Dizziness, Fainting spells, Chest pain, Calf discomfort and Uncontrolled pain Follow Up Care Please Follow Up With: Teagan Solis CNM When: 6 weeks , please call office to make an appointment. Congratulations on the of Onesimo!!It was a pleasure to be at your . Test Results: Test results from this visit will be discussed in further detail at your follow- up appointment, if applicable. Discharge Plan Admission Admit Date/Time: 06/02/23 04:30 Attending Provider: Teagan Solis Primary Care Provider: Care Physician,Suzi Primary Discharge Orders/Prescriptions Prescriptions: No Action PNV-DHA 27 mg iron-1 mg -300 mg capsule 1 cap PO Referrals / Follow Up: Care Physician,No Primary [Primary Care Provider] -
[2023-06-02 18:09] LABS: Hematocrit 32.5 % (37-47); Hemoglobin 11.1 g/dL (12.0-15.0); Mean Corp Hgb Conc 34.2 g/dL (32-36); Mean Corpuscular Hgb 31.8 pg (27.0-32.0); Mean Corpuscular Volume 93.1 fL (81-99); Platelet Count 189 K/mm3 (150-450); RBC Distribution Width CV 12.6 % (11.6-14.6); RBC Distribution Width SD 42.9 fl (35.1-43.9); Red Blood Count 3.49 M/mm3 (4.2-5.4); White Blood Count 17.1 K/mm3 (4.4-11.0)
[2023-06-03 00:21] VITALS: BP 118/66; PULSE 87; RESP 16; TEMP 36.8
[2023-06-03 05:15] VITALS: BP 116/67; PULSE 81; RESP 16; TEMP 36.5
--- NOTE | 2023-06-03 07:39 | PN.OBGYN_ITS ---
Subjective Subjective Patient doing well without complaints. Tolerating PO. Ambulating and voiding without difficulty. Feeding well. Denies chest pain, shortness of breath, calf pain/swelling, fevers, chills, lightheadedness. Objective Data Objective Data Vital Signs: Vital Signs Temp Pulse Resp BP Pulse Ox O2 Del Method 97.7 F L 81 16 116/67 98 Room Air 06/03/23 05:15 06/03/23 05:15 06/03/23 05:15 06/03/23 05:15 06/02/23 19:51 06/03/23 05:15 Oxygen Delivery Method Room Air Weight: 180 lb 5.41 oz Body Mass Index (BMI) 29.9 Intake & Output: Intake and Output for Last 24 Hours 06/01/23 06/02/23 06/03/23 23:59 23:59 23:59 Intake Total 1855.0 / 1855.0 Output Total 1370 / 1370 Balance 485.0 / 485.0 Lab / Micro Data Attestation: I reviewed the patient's lab results. 06/02/23 17:59 Labs: Laboratory Results - last 24 hr 06/02/23 17:59: WBC 17.1 H, RBC 3.49 L, Hgb 11.1 L, Hct 32.5 L, MCV 93.1, MCH 31.8, MCHC 34.2, RDW Std Deviation 42.9, RDW Coeff of Jessica 12.6, Plt Count 189, MPV 9.0 Micro: Microbiology 06/02/23 02:35 Genital vaginal Group B Streptococcus (PCR) - Final Streptococcus Group B ROS Constitutional Constitutional: Reports systems reviewed and no addt'l complaints, except as documented; Denies anorexia or headache(s) Cardiovascular Cardiovascular: Reports systems reviewed and no addt'l complaints, except as d ocumented; Denies dizziness, dyspnea, nausea or tachypnea Respiratory/Chest Respiratory/Chest: Reports systems reviewed and no addt'l complaints, except as documented; Denies cough, dyspnea, shortness of breath at rest or tachypnea Gastrointestinal Gastrointestinal: Reports systems reviewed and no addt'l complaints, except as documented; Denies abdominal pain, constipation or nausea Genitourinary Genitourinary: Reports systems reviewed and no addt'l complaints, except as documented; Denies burning urination, difficulty urinating, dysuria, urinary frequency or urinary incontinence Musculoskeletal Musculoskeletal: Reports systems reviewed and no addt'l complaints, except as documented Integumentary Integumentary: Reports systems reviewed and no addt'l complaints, except as documented Neurologic Neurologic: Reports systems reviewed and no addt'l complaints, except as documented; Denies abnormal speech, dizziness or headache(s) Psychiatric Psychiatric: Reports systems reviewed and no addt'l complaints, except as documented Endocrine Endocrinology: Reports systems reviewed and no addt'l complaints, except as documented Hematologic/Lymphatic Hematologic/Lymphatic: Reports systems reviewed and no addt'l complaints, except as documented Physical Exam Const alert, oriented x3 and no apparent distress Neck full ROM Resp normal respiratory effort, normal air movement and no retractions Effort and Inspection: able to speak in complete sentences and symmetric chest movement GI soft to palpation Bladder / Kidney Exam: bladder normal to palpation Uterus Palpation: uterus fundus firm Extremity normal to inspection and full ROM Psych mental status grossly normal, thought process normal and cooperative Assessment & Plan (1) premature rupture of membranes (PPROM) delivered, current hospitalization: COMMENT: GBS unknown- treat with PCN PLAN: s/p PPD # 1 1. routine post delivery care 2. breast feeding- support given 3. rh positive 4. rubella immune 5. Discharge home Charges/Coding Multi Select Codes Urinary/Genital Urinary/Genital CPT Codes: No Charge
[2023-06-03 08:00] VITALS: BP 136/74; PULSE 103; RESP 18; TEMP 36.8; O2SAT 98
[2023-06-03 15:00] VITALS: BP 126/77; PULSE 92; RESP 18; TEMP 36.6; O2SAT 98
[2023-06-03 19:50] VITALS: BP 127/75; PULSE 94; RESP 16; TEMP 36.9; O2SAT 98
[2023-06-04 01:33] VITALS: BP 111/66; PULSE 97; RESP 18; TEMP 36.4; O2SAT 98
--- NOTE | 2023-06-04 07:46 | PCM.PN.OB ---
Subjective Subjective Patient doing well without complaints. Tolerating PO. Ambulating and voiding without difficulty. Feeding well. Denies chest pain, shortness of breath, calf pain/swelling, fevers, chills, lightheadedness. Objective Data Objective Data Vital Signs: Vital Signs Temp Pulse Resp BP Pulse Ox O2 Del Method 97.5 F L 97 18 111/66 98 Room Air 06/04/23 01:33 06/04/23 01:33 06/04/23 01:33 06/04/23 01:33 06/04/23 01:33 06/04/23 01:33 Oxygen Delivery Method Room Air Weight: 180 lb 5.41 oz Body Mass Index (BMI) 29.9 Intake & Output: Intake and Output for Last 24 Hours 06/02/23 06/03/23 06/04/23 23:59 23:59 23:59 Intake Total 1855.0 / 1855.0 Output Total 1370 / 1370 Balance 485.0 / 485.0 Lab / Micro Data 06/02/23 17:59 Micro: Microbiology 06/02/23 02:35 Genital vaginal Group B Streptococcus (PCR) - Final Streptococcus Group B Physical Exam Const alert and oriented x3 HEENT normocephalic Eyes PERRL Neck full ROM Resp normal respiratory effort GI soft to palpation GI Narrative: FF below U Assessment & Plan (1) Spontaneous vaginal delivery: COMMENT: 06/02/23 PPROM 36w LC boy PLAN: Plan s/p PPD # 2 1. routine post delivery care 2. breast feeding- support given 3. rh positive 4. rubella immune 5. home today
[2023-06-04 08:48] VITALS: BP 121/74; PULSE 87; RESP 16; TEMP 36.6; O2SAT 98
== END 2023-06-04 10:05 | disposition home or self-care (01) | DRG 805 ==
LOC: WPOUT 04:38 → WP 10:08
PROVIDERS: Obstetrics & Gynecology; Admitting Provider Registered Nurse; Referring Provider Registered Nurse; Visit Provider Registered Nurse
DX: O76 Abnormality in fetal heart rate and rhythm complicating labor and delivery (principal); Z37.0 Single live birth; O60.14X0 Preterm labor third trimester with preterm delivery third trimester, not applicable or unspecified; O42.013 Preterm premature rupture of membranes, onset of labor within 24 hours of rupture, third trimester; O69.81X0 Labor and delivery complicated by cord around neck, without compression, not applicable or unspecified; O99.824 Streptococcus B carrier state complicating childbirth; O70.1 Second degree perineal laceration during delivery; Z3A.36 36 weeks gestation of pregnancy
CPT/HCPCS: 59025; 59050; 84112; 85025; 85027; 86780; 86850; 86900; 86901; 87653; 99221; J7120; G0378; J2405

== ENCOUNTER → 2024-01-13 | Outpatient (CLI) | payer SELFPAY ==
[2024-01-13 18:36] LABS: hCG Titer Quant., Serum 10343 mIU/mL (1-3)
== END | disposition home or self-care (01) ==
LOC: LAB 16:48
PROVIDERS: Referring Provider Nurse Practitioner Women's Health; Visit Provider Nurse Practitioner Women's Health
DX: O26.859 Spotting complicating pregnancy, unspecified trimester (principal); Z3A.00 Weeks of gestation of pregnancy not specified
CPT/HCPCS: 36415; 84702

== ENCOUNTER 2024-01-15 16:22 | Day surgery (SDC) | payer SELFPAY ==
--- NOTE | 2024-01-15 16:38 | PCM.PRE.AN2 ---
ASA Classification* ASA Classification ASA Classification: 2 and E Assessment & Plan Anesthesia* Anesthesia Assessment Anesthesia Assessment: Discussed sedation and/or anesthesia options, risks, benefits, and alternatives with patient/parents/legal guardian/POA. Questions invited. The patient/parents/legal guardian/POA seems to understand and agrees to proceed with anesthesia plan. Reviewed the physical assessment, medical history, allergy history and patient home medications list prior to surgery/procedure/anesthetic and documented any changes. Performed airway and anesthesia risk assessments. Anesthesia Type Anesthesia Type: General (RSI) Anesthesia Focused Assessment* Airway Assessment Mouth opens: >3 cm Mallampati Score: II Focused Labs Anesthesia Preop lab: CBC WBC 17.1 K/mm3 (4.4-11.0) H 06/02/23 17:59 RBC 3.49 M/mm3 (4.2-5.4) L 06/02/23 17:59 Hgb 11.1 g/dL (12.0-15.0) L 06/02/23 17:59 Hct 32.5 % (37-47) L 06/02/23 17:59 Plt Count 189 K/mm3 (150-450) 06/02/23 17:59 CHEMISTRY COAG HCG, Quant 11563 mIU/mL (1-3) H 01/13/24 16:49 Pre-Assessment Diagnosis/Proposed Procedure Planned Operative Procedure(s): exploratory laparoscopy, removal ectopic Anesthesia History Anesthesia History - jd edwards developer: Anesthesia History - jd edwards developer Hx Hospitalization Any Problems With Anesthesia Cholinesterase deficiency You/Your Family Experience fever (hyperthermia) with Relationship Recent Exposure to Contagious Disease Does patient have nerve stimulator Patient instructed to have device shut off --Does patient have Pacemaker or ICD? When Was Last Pacemaker Check QUESTION #4 FULL TEXT: You/Your Family Experience fever (hyperthermia) with Anesthesia Last Oral Intake Last Oral intake: Last Oral Intake NPO since Meds taken in AM with sips of water? Meds patient instructed to take am of surgery PONV PONV - jd edwards developer: PONV - jd edwards developer Female HX of Motion Sickness HX of N/V After Surgery Non-Smoker Duration of Surgery greater than 60 minutes Number of Risk Factors PONV Score Height & Weight Height & Weight: Anesthesia: Height & Weight Height 5 ft 5 in 01/15/24 16:09 Respiratory Assessment Respiratory Assessment - jd edwards developer: Respiratory Tract Infection Hx - jd edwards developer Hx Respiratory Tract Infection STOP Sleep Apnea STOP Sleep Apnea - jd edwards developer: STOP Sleep Apnea - jd edwards developer Hx Hypertension Hx Sleep Apnea CPAP BIPAP Do you snore loudly (louder than talking or can be heard Do you often feel tired/ fatigued/ sleepy during daytime? Has anyone observed you stop breathing during sleep? STOP Results QUESTION #5 FULL TEXT : Do you snore loudly (louder than talking or can be heard through closed doors)? Tobacco Use History Tobacco Use History - jd edwards developer: Tobacco Use History - jd edwards developer Tobacco Use Smoking Status Never smoker 07/15/23 14:55 Hx Tobacco Use No 06/05/23 10:50 Years Smoking Packs Smoked per Day Smoking Cessation Date was within the last 15 years Hx Smoking Cessation Date Hx Smoking Cessation Counseling Hematologic Medial History Hematologic Hx - jd edwards developer: Hematologic Medical Hx - paper sealer Hx of Blood Transfusion Hx of Transfusion in last 3 Months Date of Last Transfusion (if within last 3 months) Ever experience any problems with transfusion(s)? Specify any problems Hx of Preganancy in last 3 Months Nurse Filling Out Transfusion & Questions: Date: Time: Patient unable to answer at this time (ie. 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
--- NOTE | 2024-01-15 16:48 | HP.PCM_ITS ---
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 Required: No Is patient in pain?: No Allergies No Known Allergies Allergy (Verified 01/15/24 16:46) Medications ?Medication ?Instructions ?Recorded ?Confirmed ?Type vit no.95-ferrous 1 tab PO DAILY 01/15/24 01/15/24 History fumarate 28 mg-folic acid 800 mcg tablet ( Multivitamins) Post menopausal: No Patient : No : No PFSH Medical History Skin tag Family History GrandmotherOvarian cancer Social History adopted: No household members: spouse housing: apartment current occupational status: employed current occupation: [employer] employee pets and animals: Yes (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 she denies any pelvic pain or dizziness, lightheadedness. she hasn't had any miscarriage before Female Reproductive History Menopausal Symptoms: No night sweats History 2 Elective abortions Hx Para 1 Spontaneous abortions Hx # Term Pregnancies Ectopic pregnancies 1 Hx # Pregnancies 1 Multiple births # of living children 1 Past Pregnancies Del. Date Name GA/Weeks Outcome Route Bth Weight Infant Gen Labor Lgth Anesthesia Del Locatn Provider FOB 06/02/23 Peter 37 live - full term 6lbs 1oz Male ? epidural [facility] LC ? ROS Const Constitutional: Denies fatigue, night sweats, weight gain or weight loss ENT ENT: Reports system reviewed and no additional complaints, except as documented Cardio Card: Denies chest pain Resp Resp: Denies cough or dyspnea GI GI: Reports as per HPI; Denies abdominal pain, constipation, nausea or vomiting : Denies nipple discharge, urinary frequency, urinary incontinence, urinary hesitancy, urinary urgency, vaginal discharge, vaginal dryness, vaginal odor or vaginal pruritus Musc Musc: Denies arthralgias, back pain or muscle weakness Skin Skin/Breast: Denies alopecia, change in hair, dry skin, breast mass, breast pain, breast skin changes or nipple discharge Neuro Neuro: Reports system reviewed and no additional complaints, except as documented Psych Psych: Reports system reviewed and no additional complaints, except as documented Endo Endo: Denies cold intolerance, excessive sweating, heat intolerance or polydipsia Jose/Lymph Hematologic/Lymphatic: Denies easy bleeding, Denies easy bruising and Denies lymphadenopathy Exam Const General: cooperative, healthy appearing, comfortable and no acute distress Orientation: alert [facility] Head: normal to inspection and normocephalic Ears: hearing grossly normal bilaterally and external ears normal Nose: external nose normal and nares normal Face and sinus: normal facial exam Neck Neck: normal visual inspection and no lymphadenopathy Thyroid: thyroid normal Chest Chest palpation & inspection: normal inspection of the chest Resp Effort & Inspection: normal respiratory effort GI Inspection: normal to inspection and non-distended Palpation: soft and no hepatosplenomegaly Musc Other: gross motor intact no deficits, full bilateral strength Skin General: no rashes or lesions noted Neuro General: patient alert, patient awake, moves all extremities and no focal motor deficits Motor: muscle tone normal throughout Extrem General: normal to inspection and no pedal edema Psych Appearance: grossly normal Mental Status: mental status grossly normal Affect: normal affect Speech and Movement: speech and movement normal Coding Level of Care Code Off vis,est,level 4 Diagnoses Ectopic O00.90 Assessment and Plan Assessment and Plan (1) Ectopic : Status: Acute Comment: recommend laparoscopic removal Plan After discussing the patient's diagnosis and treatment plan options, patient wishes to proceed with surgical management. I have discussed with the patient the risks, benefits, and alternatives of the procedure which include but are not limited to risks of anesthesia, bleeding, infection, possible damage to bowel, bladder, or surrounding vasculature which could lead to additional surgery to evaluate any complications. Patient agrees to procedure and wishes to proceed. ACOG/uptodate references given for additional information regarding procedure.
[2024-01-15 16:52] VITALS: BP 107/62; PULSE 81; RESP 16; TEMP 36.4; O2SAT 100; BMI 23.0
[2024-01-15] MEDS: Lactated Ringers 1,000 ML 15 ML IV (16:52)
--- NOTE | 2024-01-15 17:15 | FAL_PTH ---
PATIENT: CARLITOS DODGE LOC: [facility] [place] U#:[id number] AGE/SX: 23/ ROOM: RE01/15/[address]: Dr. Cassie Giordano MD : [id number] BED: DIS: 01/15/2024 SPEC #: [id number] RECD: 01/16/24 10:25 STATUS: EFRAÍN JERMAINE #: [id number] TALI: 01/15/24 17:[address]: Cassie Giordano DEPT: SURGICAL PATHOLOGY RECD BY: Srinath Rose ENTERED: 01/16/24 11:05 SP TYPE: ECTOPIC OTHR DR: Suzi Primary Care Phys Tissues: ECTOPIC PREG Procedures: Surgery Specimen Level IV HEADER OPERATION: Laparoscopic, removal ectopic , right salpingectomy PRE-OP DIAGNOSIS: Ectopic TISSUE SUBMITTED: Right fallopian tube with ectopic MICROSCOPIC DIAGNOSIS Right fallopian tube, salpingectomy: Fallopian tube with decidua and immature chorionic villi (ectopic ). 01/19/2024 MICROSCOPIC DESCRIPTION Slides are reviewed. GROSS DESCRIPTION Received in fixative is one container labeled with the patient's name and designated Right fallopian tube with ectopic . The specimen consists of a dilated fallopian tube measuring 5.0cm in length and varying in diameter from 0.6 to 2.0cm. Also present in the specimen container are multiple irregular fragments of blood clots measuring in aggregate 3.5 x 3.0 x 0.7cm. Game Designer sections are submitted in four cassettes. 01/16/2024 TC:5 CPT:11225
[2024-01-15 17:29] LABS: Hematocrit 33.5 % (37-47); Hemoglobin 11.1 g/dL (12.0-15.0); Mean Corp Hgb Conc 33.1 g/dL (32-36); Mean Corpuscular Volume 90.5 fL (81-99); Mean Platelet Vol. 8.9 fl (6.2-12.0); Platelet Count 247 K/mm3 (150-450); RBC Distribution Width CV 12.5 % (11.6-14.6); RBC Distribution Width SD 41.5 fl (35.1-43.9); White Blood Count 7.7 K/mm3 (4.4-11.0)
--- NOTE | 2024-01-15 18:29 | OP.PCM_ITS ---
Problems Associated Problem List Diagnoses (1) Ectopic : Report of Operation Date of Procedure: 01/15/24 Pre-Operative Diagnosis: see problem list Post-Operative Diagnosis: same Surgery/Procedure Performed:: laparoscopic right salpingectomy Description of Surgical Findings:: ruptured ectopic Surgeon: Cassie Giordano photo technologist: Ester De La Fuente Type of Anesthesia: General and Local Specimen's removed: tube and ectopic Drains: none Estimated Blood Loss (mL): 300 Fluids Replaced: crystalloid Description of Procedure: Patient was taken in the operating room and was placed under general anesthesia was prepped and draped in normal sterile fashion in the dorsal lithotomy position. Bladder was drained of clear urine and SCDs were on preoperatively. Uterus was sounded and a uterine manipulator was placed after dilating. Attention was then paid to the abdominal portion of the procedure and the umbilicus was elevated with towel clamps and injected with Marcaine and after a 5 mm incision was made and the Veress needle was entered into the abdomen confirmed to be intra-abdominal with a low opening pressure of less than 5 mmHg. Abdomen was insufflated with CO2 gas and a 5 mm optical trocar was placed under direct visualization. A 5 mm port was placed in the right and left lower quadrant ports under direct visualization. Uterus was well visualized and there is noted to be a right ruptured ectopic coming from the right fallopian tube. Blood and clot were seen in the cul-de-sac. Fallopian tube was elevated and mesosalpinx transected and abnormal portion of the fallopian tube and were removed without complication and then placed in a bag and removed through the 5 mm port site. Liver and upper abdomen were visualized notably within no rmal limits and no other gross abnormalities were seen in the abdomen. All instruments removed from the abdomen after gas was desufflated. All port sites were closed with 3-0 Monocryl Steri's and op sites were applied. All instruments removed from the vagina and patient was awoken and taken recovery in stable condition. Grafts/Implants Used: none Procedure Start Time: 18:35 Procedure Stop Time: 19:14 Complications none Admit VTE Documentation VTE Present on Admission: No VTE Mechan Device Prophylaxis: SCD's Procedures Urinary/Genital [id number]: [id number] Treat ectopic lapro w/ salpingectomy
--- NOTE | 2024-01-15 18:30 | PCM.DC ---
Discharge Instructions Diet Discharge Diet: No restrictions Activity Discharge Activity: Return to Normal Activity, May Not Drive ( while taking narcotic pain meds, when pain free), May Shower and May Take a Tub Bath (in 7 days) May resume sexual activity in: 1 week Weight Bearing Status: Full weight bearing Dressing / Incision Call your doctor if your incision/area has: Continuous Slow Oozing, Sudden Increased Bleeding, Increased Pain/ Swelling, Increased Redness and Foul Smelling Discharge Call your doctor if you observe: Fever of 101 or Higher, Using more than 1 pad per hour, Shortness of breath, Chest pain and Uncontrolled pain Suture Line Care: Avoid Pulling/Pushing and Avoid Pinching/Bending Remove Dressing in: 1 week (if present) Cleanse incision/area with: Soap & Water and Keep Dressing Clean & Dry Follow Up Care When: Call to make an appointment with your doctor for a fu/incision check in 1-2 weeks. Test Results: Test results from this visit will be discussed in further detail at your follow-up appointment, if applicable. Discharge Plan Admission Attending Provider: Cassie Giordano Primary Care Provider: Care PhysicianSuzi Primary Instructions Print Language: Argentine Discharge Orders/Prescriptions Prescriptions: New oxycodone-acetaminophen [Percocet] 5-325 mg tablet 1 tab PO Q6H PRN (Reason: pain) 7 Days Qty: 10 0RF naproxen 500 mg tablet 500 mg PO BID PRN PRN (Reason: Pain) Qty: 30 1RF No Action PNV cmb#95-ferrous fumarate-FA [ Multivitamins] 28 mg iron- 800 mcg tablet 1 tab PO DAILY Referrals / Follow Up: Care PhysicianSuzi Primary [Primary Care Provider] - Disposition Disposition (needs filled in before D/C Order can be placed): Home, Self Care
[2024-01-15] MEDS: Bupivacaine 0.25% 30 ML Vial (18:40)
[2024-01-15 19:30] VITALS: BP 107/62; BP 121/70; PULSE 101; RESP 16; TEMP 36.9; O2SAT 100
[2024-01-15 19:33] VITALS: BP 121/70; PULSE 97; RESP 16; TEMP 36.9; O2SAT 100
--- NOTE | 2024-01-15 19:33 | PCM.POST.ANE ---
Anesthesia: Postop Eval I Current Vital Signs Temperature: 98.5 F Pulse Rate: 97 Blood Pressure: 121/70 Respiratory Rate: 16 Pulse Ox: 100 Assessment Airway patent: Yes Spontaneous unlabored respirations: Yes nausea: No Vomiting: No Anesthesia Complication: No Fluid Hydration Crystalloid volume administer (ml): 1,000 Total IV fluid infused: 1,000 Progress Note Anesthesia document: Postop Eval 1 completed: Yes
[2024-01-15 19:35] VITALS: BP 107/62; BP 119/64; PULSE 87; RESP 16; O2SAT 100
--- NOTE | 2024-01-15 19:35 | PCM.POSTANE2 ---
Anesthesia Postop Eval I Sum Postop Eval Completion status Anesthesia document: Postop Eval 1 completed: Yes Anesthesia Postop Eval I Summary Anesthesia Postop Eval I Summary: Anesthesia Postop Eval I: Assessment Summary Airway patent Yes 01/15/24 19:33 Spontaneous unlabored Yes 01/15/24 19:33 respirations Mental status nausea No 01/15/24 19:33 Vomiting No 01/15/24 19:33 Anesthesia Postop Eval I: Fluid Summary Crystalloid volume administer 1,000 01/15/24 19:33 (ml) Colloids volume administered ( ml) Blood Product volume administered (ml) Total IV fluid infused 1,000 01/15/24 19:33 Anesthesia Postop Eval I: Summary Notes Anesthesia Complication No 01/15/24 19:33 Anesthesia Complication Comment: Post-operative progress note Anesthesia: Postop Eval II Evaluation Mental status: Awake Pain Level: 0 nausea: No Vomiting: No
[2024-01-15 19:40] VITALS: BP 107/62; BP 115/71; PULSE 95; RESP 16; TEMP 36.1; O2SAT 100
[2024-01-15 20:42] VITALS: BP 107/62
== END 2024-01-15 20:46 | disposition home or self-care (01) ==
LOC: SDC 16:23 → AC 16:24
PROVIDERS: Referring Provider Obstetrics & Gynecology; Visit Provider Obstetrics & Gynecology
PROC: 10T24ZZ Resection of Products of Conception, Ectopic, Percutaneous Endoscopic Approach (ICD-10-PCS; CPT 59150; principal; 2024-01-15 17:00)
DX: O00.90 Unspecified ectopic pregnancy without intrauterine pregnancy (principal)
CPT/HCPCS: 59151; 00840; 85027; 86850; 86900; 86901; 88305; J7120; A4216; J2405

== ENCOUNTER → 2024-01-15 | Outpatient (CLI) | payer SELFPAY ==
--- NOTE | 2024-01-15 15:25 | US_ITS ---
STUDY: FIRST TRIMESTER OBSTETRICAL ULTRASOUND REASON FOR EXAM: Female, 23 years old viability LMP: TECHNIQUE: Transvaginal TECHNICAL QUALITY: Adequate. PRIOR ULTRASOUND: None. FINDINGS: There is no evidence for intrauterine gestational sac The uterus measures 7.9 x 4.3 x 4.6 cm. There is no demonstrated uterine fibroid. The cervix is closed. The right ovary measures 3 x 2 x 1 cm There is no right ovarian cyst. There is a complex cyst in the right adnexa demonstrating increased vascularity measuring 3.8 x 2.5 x 1.9. The left ovary measures 3 x 2 x 2 cm. There is no left ovarian cyst. There is no visualized left adnexal mass or complex lesion. There is moderate fluid in the cul de sac. US/Transvaginal w/Preg US IMPRESSION: No evidence for intrauterine gestational sac Complex right adnexal hyperemic cyst with free fluid in the cul-de-sac which could represent ectopic . Recommend clinical correlation and follow-up studies if indicated Office was called with results and patient sent to the office following the study as per technologist notes Electronically Signed: Donald Boateng MD at 16:57 EDT ,
== END | disposition home or self-care (01) ==
LOC: US 15:21
PROVIDERS: Referring Provider Nurse Practitioner Women's Health; Visit Provider Nurse Practitioner Women's Health
DX: O26.859 Spotting complicating pregnancy, unspecified trimester (principal); Z3A.00 Weeks of gestation of pregnancy not specified
CPT/HCPCS: 76817

== ENCOUNTER → 2024-05-17 | Outpatient (CLI) | payer SELFPAY ==
[2024-05-17 17:32] LABS: hCG Titer Quant., Serum 2030 mIU/mL (1-3)
== END | disposition home or self-care (01) ==
LOC: LAB 15:57
PROVIDERS: Referring Provider Obstetrics & Gynecology; Visit Provider Obstetrics & Gynecology
DX: O26.899 Other specified pregnancy related conditions, unspecified trimester (principal); R10.9 Unspecified abdominal pain; Z87.59 Personal history of other complications of pregnancy, childbirth and the puerperium; Z3A.00 Weeks of gestation of pregnancy not specified
CPT/HCPCS: 36415; 84702

== ENCOUNTER → 2024-05-19 | Outpatient (CLI) | payer SELFPAY ==
[2024-05-19 17:29] LABS: hCG Titer Quant., Serum 4579 mIU/mL (1-3)
== END | disposition home or self-care (01) ==
LOC: LAB 16:03
PROVIDERS: Referring Provider Obstetrics & Gynecology; Visit Provider Obstetrics & Gynecology
DX: O26.899 Other specified pregnancy related conditions, unspecified trimester (principal); R10.9 Unspecified abdominal pain; Z87.59 Personal history of other complications of pregnancy, childbirth and the puerperium; Z3A.00 Weeks of gestation of pregnancy not specified
CPT/HCPCS: 36415; 84702

== ENCOUNTER → 2024-05-21 | Outpatient (CLI) | payer SELFPAY ==
--- NOTE | 2024-05-21 11:19 | US_ITS ---
PROCEDURE: TRANSVAGINAL W/PREG US REASON FOR EXAM: . Pelvic cramping. Status post right salpingectomy due to ectopic . COMPARISON: 01/2024. FINDINGS: Number of Gestational Sacs: 1. It measures 1 cm corresponding to 5 weeks and 5 days. Gestational Sac Shape: Normal Number of Fetuses: 1 Heart Rate: Not detected at this time. (Average) Yolk Sac: Present and unremarkable. It measures 2 mm. Placenta: Presently not well-visualized Amniotic Fluid Volume: Subjectively normal for gestational age. Uterine Abnormalities: Maternal uterus is unremarkable. Ovaries / Adnexa: Both maternal ovaries are visualized and unremarkable. 2.2 cm x 1.8 cm x 2.0 cm right ovarian cyst. DIMENSIONS: Parameter Measurement / EGA [place] Rump Length: / Gestational Sac: / Yolk Sac: / ESTIMATED GESTATIONAL AGE: By LMP: 5 weeks 2 days.. By ultrasound: 5 weeks 5 days. ESTIMATED DATE OF DELIVERY: By LMP: January 19, 2025. by ultrasound: January 16, 2025 US/Transvaginal w/Preg US IMPRESSION: Intrauterine gestational sac with a mean gestational age of 5 weeks and 5 days. No cardiac activity noted at this time. Small right ovarian cyst. Reading Location: [facility]
== END | disposition home or self-care (01) ==
PROVIDERS: Referring Provider Obstetrics & Gynecology; Visit Provider Obstetrics & Gynecology
DX: O26.899 Other specified pregnancy related conditions, unspecified trimester (principal); R10.9 Unspecified abdominal pain; Z87.59 Personal history of other complications of pregnancy, childbirth and the puerperium; Z3A.00 Weeks of gestation of pregnancy not specified
CPT/HCPCS: 76817

== ENCOUNTER → 2024-06-01 | Outpatient (CLI) | payer SELFPAY ==
--- NOTE | 2024-06-01 12:18 | US_ITS ---
PROCEDURE: TRANSVAGINAL W/PREG US REASON FOR EXAM: Viability. COMPARISON: Comparison is made with prior study dated May 21, 2024. FINDINGS: Comments: Transvaginal imaging was performed Number of Gestational Sacs: 1 Gestational Sac Shape: Normal Number of Fetuses: 1 Heart Rate: 138 beats per minute (average) Survey of Visible Anatomic Structures: Grossly unremarkable for gestational age. Nasal Bones: N/A Yolk Sac: Present and unremarkable. Placenta: Presently not well-visualized Amniotic Fluid Volume: Subjectively normal for gestational age. Uterine Abnormalities: Maternal uterus is unremarkable. Ovaries / Adnexa: Prior right salpingectomy. The right ovary measures 2.3 cm x 2.1 cm x 2.2 cm. The left ovary measures 2.7 cm x 1.4 cm x 1.9 cm. DIMENSIONS: Parameter Measurement / EGA [place] Rump Length: 1 cm/7 weeks and 1 day Gestational Sac: 2.1 cm/7 weeks and 0 days Yolk Sac: 2 mm/ ESTIMATED GESTATIONAL AGE: By Ultrasound: 7 weeks and 1 day By LMP: 6 weeks and 6 days ESTIMATED DATE OF DELIVERY: By Ultrasound: January 17, 2025 By LMP: January 19, 2025 US/Transvaginal w/Preg US IMPRESSION: Intrauterine gestation with a mean gestational age of 7 weeks and 1 day. Reading Location: [id number]
== END | disposition home or self-care (01) ==
LOC: OPUS 12:19 → US 12:20
PROVIDERS: Referring Provider Nurse Practitioner Women's Health; Visit Provider Nurse Practitioner Women's Health
DX: O26.899 Other specified pregnancy related conditions, unspecified trimester (principal); R10.9 Unspecified abdominal pain; Z3A.00 Weeks of gestation of pregnancy not specified
CPT/HCPCS: 76817

== ENCOUNTER → 2024-06-17 | Outpatient (CLI) | payer SELFPAY ==
[2024-06-17 12:32] LABS: Absolute Lymphocyte Count 1.94 X10^3/uL (0.83-4.51); Absolute Neutrophil Count 8.2 X10^3/uL (2.0-7.7); Basophil# 0.04 X10^3/uL; Basophil% 0.4 % (0-1); Eosinophil# 0.07 X10^3/uL; Eosinophils% 0.6 % (0-5); Hematocrit 37.3 % (37-47); Hemoglobin 12.7 g/dL (12.0-15.0); Lymphocyte # 1.94 X10^3/ul (0.83-4.51); Lymphocyte % 17.8 % (19-41); Mean Corpuscular Hgb 31.1 pg (27.0-32.0); Mean Corpuscular Volume 91.4 fL (81-99); Mean Platelet Vol. 8.8 fl (6.2-12.0); Monocyte# 0.65 X10^3/uL; NRBC Flagged by Analyzer 0 % (0-5); Neutrophil # 8.15 X10^3/uL (2.7-7.7); Neutrophil % 74.8 % (47-70); Platelet Count 292 K/mm3 (150-450); RBC Distribution Width CV 12.8 % (11.6-14.6); RBC Distribution Width SD 42.5 fl (35.1-43.9); Red Blood Count 4.08 M/mm3 (4.2-5.4); White Blood Count 10.9 K/mm3 (4.4-11.0)
[2024-06-17 13:19] LABS: HIV Nonreactive (Nonreactive)
[2024-06-17 23:12] LABS: Hepatitis B Surface Antigen Nonreactive (Nonreactive); Hepatitis C Antibody Nonreactive (Nonreactive); Rubella IgG REAC (Nonreactive); Syphilis Antibodies Nonreactive (Nonreactive)
[2024-06-22 03:07] LABS: Chlamydia By Nucleic Acid AMP Negative (Negative); Gonococcus By Nucleic Acid AMP Negative (Negative)
== END | disposition home or self-care (01) ==
LOC: BWCLAB 11:58 → LABSPEC 12:27
PROVIDERS: Referring Provider Advanced Practice Midwife; Visit Provider Advanced Practice Midwife
DX: Z34.90 Encounter for supervision of normal pregnancy, unspecified, unspecified trimester (principal)
CPT/HCPCS: 36415; 85025; 86703; 86762; 86780; 86803; 86850; 86900; 86901; 87086; 87340; 87491; 87591

== ENCOUNTER → 2024-09-02 | Outpatient (CLI) | payer SELFPAY ==
--- NOTE | 2024-09-02 12:16 | US_ITS ---
PROCEDURE: OB ANATOMY W/ TRANSVAGINAL 09/02/2024 REASON FOR EXAM: ANATOMY/CERVICAL LENGTH TECHNIQUE: High resolution obstetric ultrasound performed using a 2D transducer. Standard views obtained, including biometry, anatomy survey, and Doppler studies. COMPARISON: Prior study dated June 01, 2024. FINDINGS Number: 1 Position: Vertex Placental Position: Posterior and not low-lying. Placental Abnormalities: None DIMENSIONS: Biparietal Diameter: 4.76 cm: 20 weeks and 3 days: 60 percentile/ Head Circumference: 17.98 cm: 20 weeks and 3 days: 55th percentile/ Abdominal Circumference: 15.15 cm: 20 weeks and 3 days: 52nd percentile/ Femur Length: 3.23 cm: 20 weeks and 1 day: 40th percentile/ ESTIMATED WEIGHT: 343 g plus/-52 g ESTIMATED WEIGHT PERCENTILE (24+ weeks): 50 ESTIMATED GESTATIONAL AGE: Baseline: 20 weeks and 1 day By Ultrasound: 20 weeks and 2 days ESTIMATED DATE OF DELIVERY: Baseline: January 19, 2025 By Ultrasound: January 19, 2024 BIOPHYSICAL ASSESSMENT: Amniotic Fluid Volume: 3.8 cm Amniotic Fluid Index: Within normal limits. Cardiac Motion: 150 beats per minute (average) Trunk and Limb Motion: Present. MATERNAL ANATOMY: Adnexa: Neither maternal ovary is successfully identified. Cervical Length (if measured): 4.1 cm ANATOMY: Spine: Unremarkable. Cranium: Unremarkable Cerebellum: Unremarkable Cisterna Magna: Unremarkable Cavum Septum Pellucidi: Unremarkable Lateral Ventricles: Unremarkable Choroid Plexus: Unremarkable Midline Falx: Unremarkable Nuchal Fold: Unremarkable Upper Lip: Unremarkable Heart: Unremarkable Stomach: Unremarkable Kidneys: Minimal fullness of the renal pelvis. Bladder: Unremarkable Umbilical Cord: Unremarkable Extremities: Unremarkable US/OB Anatomy w/ Transvaginal IMPRESSION: Single live intrauterine gestation with a mean gestational age of 20 weeks and 2 days. Reading Location: [facility]
== END | disposition home or self-care (01) ==
PROVIDERS: Referring Provider Obstetrics & Gynecology; Visit Provider Obstetrics & Gynecology
DX: Z34.90 Encounter for supervision of normal pregnancy, unspecified, unspecified trimester (principal)
CPT/HCPCS: 76805; 76817

== ENCOUNTER → 2024-10-26 | Outpatient (CLI) | payer SELFPAY ==
[2024-10-26 17:08] LABS: Hematocrit 36.2 % (37-47); Hemoglobin 12.1 g/dL (12.0-15.0); Immature Granulocytes Count 0.080 X10^3/uL (0.0-0.0); Mean Corp Hgb Conc 33.4 g/dL (32-36); Mean Corpuscular Volume 95.0 fL (81-99); Mean Platelet Vol. 8.9 fl (6.2-12.0); NRBC Flagged by Analyzer 0 % (0-5); Platelet Count 273 K/mm3 (150-450); RBC Distribution Width CV 12.8 % (11.6-14.6); RBC Distribution Width SD 44.6 fl (35.1-43.9); Red Blood Count 3.81 M/mm3 (4.2-5.4); White Blood Count 12.6 K/mm3 (4.4-11.0)
[2024-10-26 18:01] LABS: Glucose Challenge Gest 1H 50g 96 mg/dL (70-140); HIV Nonreactive (Nonreactive); Syphilis Antibodies Nonreactive (Nonreactive)
== END | disposition home or self-care (01) ==
LOC: BWCLAB 13:30
PROVIDERS: Visit Provider Obstetrics & Gynecology
DX: Z34.82 Encounter for supervision of other normal pregnancy, second trimester (principal)
CPT/HCPCS: 36415; 82950; 85025; 86703; 86780

== ENCOUNTER → 2024-12-22 | Outpatient (CLI) | payer SELFPAY | END | disposition home or self-care (01) | LOC: LABSPEC 15:36 | PROVIDERS: Referring Provider Obstetrics & Gynecology; Visit Provider Obstetrics & Gynecology | DX: Z34.83 Encounter for supervision of other normal pregnancy, third trimester (principal) | CPT/HCPCS: 87081 ==

== ENCOUNTER 2025-01-12 17:10 | Inpatient (IN) | payer SELFPAY ==
[2025-01-12] VITALS (52 sets, daily range): BP systolic 116–177; BP diastolic 58–89; PULSE 78–106; RESP 13–16; TEMP 37.2–37.6; O2SAT 93–99; BMI 29.0
[2025-01-12 16:17] LABS: Hematocrit 37.3 % (37-47); Hemoglobin 12.7 g/dL (12.0-15.0); Mean Corp Hgb Conc 34.0 g/dL (32-36); Mean Corpuscular Volume 91.2 fL (81-99); Mean Platelet Vol. 9.1 fl (6.2-12.0); Platelet Count 241 K/mm3 (150-450); RBC Distribution Width CV 12.2 % (11.6-14.6); RBC Distribution Width SD 40.7 fl (35.1-43.9); Red Blood Count 4.09 M/mm3 (4.2-5.4); White Blood Count 11.3 K/mm3 (4.4-11.0)
[2025-01-12 16:31] LABS: Creatinine, Urine (random) 21.20 mg/dL (28.00-217.00); Protein, Urine (Random) < 6.0 mg/dL (0.0-12.0); Protein:Creat Ratio UNABLE TO CALCULATE mg/g CRE (0-200)
[2025-01-12 16:59] LABS: AST(SGOT) 20 U/L (<=31); Alanine Aminotransfer ALT/SGPT 13 U/L (<=34); Estimated Creatinine Clearance 194.69 ml/min (50-250); Uric Acid 4.3 mg/dL (2.6-6.0)
[2025-01-12] MEDS: 0.9% Saline Lock 10 ML Syringe IV (18:42)
[2025-01-12] MEDS: Lactated Ringers 1,000 ML 50 ML IV (18:43)
[2025-01-12] MEDS: Oxytocin 15 Units/NS 250ml 15 UNITS/250 ML IV.SOLN 2 UNITS IV (18:45)
[2025-01-12 18:46] LABS: Syphilis Antibodies Nonreactive (Nonreactive)
[2025-01-12] MEDS: Lactated Ringers 1,000 ML 999 ML IV (23:44)
[2025-01-13] VITALS (62 sets, daily range): BP systolic 110–153; BP diastolic 57–85; PULSE 70–109; RESP 16–18; TEMP 36.3–37.6; O2SAT 93–100
--- NOTE | 2025-01-13 00:06 | HP.PCM.OB_ITS ---
HPI - General General Date of Admission: 01/12/25 HPI Narrative CARLITOS DODGE, is a 24 F who presents with elevated bps, no vazquez bv labs WNL, but new onset GHTN Maternal Data Information THEODORA Calculator Estimated Delivery Date Method Current WG Current Estimate 01/19/25 LMP (Certain) 39w 1d Other Estimates 01/17/25 Ultrasound #1 39w 3d 01/19/25 Ultrasound #2 39w 1d PFSH PFSH Medical History Family history of ovarian cancer Skin tag Home Medications ?Medication ?Instructions ?Recorded ?Last Taken ?Type multivitamin no.47-iron fum 27 cap PO 06/01/24 5 History mg-folate no.1 1 mg-dha 300 mg capsule (PNV-DHA) Allergy/AdvReac Type Severity Reaction Status Date / Time No Known Allergies Allergy Verified 01/12/25 16:57 Family History Grandmother Ovarian cancer, Onset Age: 45 Paternal Surgical History H/O oral surgery H/O unilateral salpingectomy Social History adopted: No household members: spouse housing: apartment number of children: 1 current occupational status: employed current occupation: [employer] employee pets and animals: Yes (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) pets and animals: cat(s) and other history of recent travel: No sexually active: Yes Smoking Status: Never smoker alcohol intake: never substance use type: does not use well-balanced diet: daily or most days caffeine: Yes Type: coffee Number of servings: 2 eating out: rarely or never during the past year weight has: remained stable what type of physical activity do you participate in: walking and yoga frequency: 3-4 times per week duration: 30-45 minutes/day caron/adventism: Taoism seatbelt use: always do you feel safe at home: Yes additional social history: Spouse - Tino 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 Date Name GA/Weeks Outcome Route Bth Weight Gen Labor Lgth Anesthesia Del Ilya Provider FOB 06/02/23 Peter 37 live - full term 6lbs 1oz Male ep idural [facility] LC 01/15/24 ectopic ectopic SM performed surgery Visit Details Expected Delivery Route/Plan Labor Preferences- CB/BF classes: no labor support person: Tino labor intervention preferences: [] pain management options preferred: wants limited cut cord/dad catch: cord : yes PP control planned: discussed discussed possible routes of delivery and associated risks: [] special requests: [] Plans Covid status: [] Flu vaccine: [] Tdap vaccine: declined Rhogam:na LARC form signed: yes Problem list reviewed and updated with the most current plan of care details and appropriate orders placed. Relevant counseling for the gestational age provided. Continue routine care and follow up unless otherwise noted in visit notes/problem list details OB Flowsheet Initial Weight: 140 lb Date -?-?-?-?-?-?-?-?-?-?-?-?- EGA Weight BP Urine Prot -?-?-?-?-?-?-?-?-?-?-?-?- Glucose FHR FuHt Pres Dilation -?-?-?-?-?-?-?-?-?-?-?-?- Effaced St Visit Note 06/17/24 -?-?-?-?-?-?-?-?-?-?-?-?- 9w 1d 140 lb 2 oz (+2 oz) 115/71 -?-?-?-?-?-?-?-?-?-?-?-?- 170 -?-?-?-?-?-?-?-?-?-?-?-?- KW- CRL cons wit h dates. Declines NIPT. short interval between pregnancies 07/15/24 -?-?-?-?-?-?-?-?-?-?-?-?- 13w 1d 145 lb 4 oz (+5 lb 4 oz) 115/75 Negative -?-?-?-?-?-?-?-?-?-?-?-?- Negative 153 -?-?-?-?-?-?-?-?-?-?-?-?- KW- work in for JV. no vb/cramping. US ordered. 08/10/24 -?-?-?-?-?-?-?-?-?-?-?-?- 16w 6d 146 lb (+6 lb) 118/79 Negative -?-?-?-?-?-?-?-?-?-?-?-?- Negative 140 -?-?-?-?-?-?-?-?-?-?--?-?- JV- no lof, vagi nal bleeding or cramping. has some movement. anatomy with [facility] ordered for insurance reasons. 09/07/24 -?-?-?-?-?-?-?-?-?-?-?-?- 20w 6d 154 lb 6 oz (+14 lb 6 oz) 110/64 Negative -?-?-?-?-?-?-?-?-?-?-?-?- Negative 148 -?-?-?-?-?-?-?-?-?-?-?-?- -No VB. Bernard jain. Reviewed nl anatomy 10/07/24 -?-?-?-?-?-?-?-?-?-?-?-?- 25w 1d 160 lb 6 oz (+20 lb 6 oz) 136/85 Negative -?-?-?-?-?-?-?-?-?-?-?-?- Negative 145 25 -?-?-?-?-?-?-?-?-?-?-?-?- SM no vb lof go od fm no reuglar ctx 10/26/24 -?-?-?-?-?-?-?-?-?-?-?-?- 27w 6d 164 lb 2 oz (+24 lb 2 oz) 110/70 Negative -?-?-?-?-?-?-?-?-?-?-?-?- Negative 142 27 -?-?-?-?-?-?-?-?-?-?-?-?- -No VB, LOF. G ood FM. 28 wk labs pending. [facility] 11/09/24 -?-?-?-?-?-?-?-?-?-?-?-?- 29w 6d 165 lb (+25 lb) 108/70 Negative -?-?-?-?-?-?-?-?-?-?-?-?- Negative 140 29 -?-?-?-?-?-?-?-?-?-?-?-?- JV- no lof, vagi nal bleeding, or dec fm. JV- no lof, vaginal bleeding , or dec fm. wants tdap next visit. 11/24/24 -?-?-?--?-?-?-?-?-?-?-?-?- 32w 0d 166 lb 5 oz (+26 lb 5 oz) 102/70 Negative -?-?-?-?-?-?-?-?-?-?-?-?- Negative 135 32 -?-?-?-?-?-?-?-?-?-?-?-?- MH-No VB, LOF. G ood FM. No concerns 12/08/24 -?-?-?-?-?-?-?-?-?-?-?-?- 34w 0d 170 lb (+30 lb) 103/63 Negative -?-?-?--?-?-?-?-?-?-?-?-?- Negative 145 34 -?-?-?-?-?-?-?-?-?-?-?-?- KW- no vb/lof/ct x. good fm. GBS next visit. 12/22/24 -?-?-?-?-?-?-?-?-?-?-?-?- 36w 0d 175 lb 5 oz (+35 lb 5 oz) 126/85 Negative -?-?-?-?-?-?-?-?-?-?-?-?- Negative 130 36 Cephalic 1 .5 -?-?-?-?-?-?-?-?-?-?-?-?- 60 -2 SM- no vb cramping lof good fm gbs collected 12/30/24 -?-?-?-?-?-?-?-?-?-?-?-?- 37w 1d 177 lb (+37 lb) 115/70 Negative -?-?-?-?-?-?-?-?-?-?-?-?- Negative 155 37 Cephalic -?-?-?-?-?-?-?-?-?-?-?-?- KW- no vb/lof/re g ctx. good fm no concerns today. 01/05/25 -?-?-?-?-?-?-?-?-?-?-?--?- 38w 0d 177 lb 9 oz (+37 lb 9 oz) 126/83 Negative -?-?-?-?-?-?-?-?-?-?-?-?- Negative 150 34 Cephalic -?-?-?-?-?-?-?-?-?-?-?--?- JV- measuring sm all. SUNITA is 10 on bedside scan. ordering growth. 01/12/25 -?-?-?-?-?-?-?-?-?-?-?-?- 39w 0d 181 lb 3 oz (+41 lb 3 oz) 143/98 Negative -?-?-?-?-?-?-?-?-?-?-?-?- Negative 140 36 -?-?-?-?-?-?-?-?-?-?-?-?- SM- no vb lof go od fm no regular ctx to l and d for rule out ghtn NST FHR Rate Baby A Baseline: 130 Variability:: Moderate Accelerations:: 15 x 15 Decelerations:: None NST Reactive:: Yes FHR Category:: Category I Uterine Activity:: irregular ROS Constitutional Constitutional: Reports systems reviewed and no addt'l complaints, except as documented Eyes Eyes: Denies change in vision ENT HEENT: Reports systems reviewed and no addt'l complaints, except as documented; Denies headache(s) Cardiovascular Cardiovascular: Reports systems reviewed and no addt'l complaints, except as documented; Denies chest pain or dyspnea Respiratory/Chest Respiratory/Chest: Reports systems reviewed and no addt'l complaints, except as documented Gastrointestinal Gastrointestinal: Reports systems reviewed and no addt'l complaints, except as documented; Denies abdominal pain Genitourinary Genitourinary: Reports systems reviewed and no addt'l complaints, except as documented, contractions Details: present (irregular) and movement Details: present; Denies dysuria or genital lesions Musculoskeletal Musculoskeletal: Reports systems reviewed and no addt'l complaints, except as documented Neurologic Neurologic: Reports systems reviewed and no addt'l complaints, except as documented Endocrine Endocrinology: Reports systems reviewed and no addt'l complaints, except as documented Vital Signs Vital Signs Vital Signs: 01/12/25 15:47 01/12/25 15:47 01/12/25 15:47 Temperature Temperature Source Tympanic Pulse Rate Respiratory Rate 13 Blood Pressure BP Systolic BP Diastolic Pulse Ox 99 01/12/25 15:47 01/12/25 15:48 01/12/25 15:48 Temperature 99.3 F H Temperature Source Pulse Rate 85 Respiratory Rate Blood Pressure 148/81 H BP Systolic 148 BP Diastolic 81 Pulse Ox 01/12/25 16:04 01/12/25 16:04 01/12/25 16:07 Temperature Temperature Source Pulse Rate 81 99 Respiratory Rate Blood Pressure 141/75 H BP Systolic 141 BP Diastolic 75 Pulse Ox 01/12/25 16:07 01/12/25 16:19 01/12/25 16:19 Temperature Temperature Source Pulse Rate 93 Respiratory Rate Blood Pressure 155/85 H BP Systolic 155 BP Diastolic 85 Pulse Ox 99 01/12/25 16:34 01/12/25 16:34 01/12/25 16:49 Temperature Temperature Source Pulse Rate 104 H Respiratory Rate Blood Pressure 137/83 H 141/82 H BP Systolic 137 141 BP Diastolic 83 82 Pulse Ox 01/12/25 16:49 01/12/25 17:05 01/12/25 17:05 Temperature Temperature Source Pulse Rate 81 93 Respiratory Rate Blood Pressure 142/89 H BP Systolic 142 BP Diastolic 89 Pulse Ox 01/12/25 17:19 01/12/25 17:19 01/12/25 17:19 Temperature Temperature Source Tympanic Pulse Rate 89 Respiratory Rate Blood Pressure 144/85 H BP Systolic 144 BP Diastolic 85 Pulse Ox 01/12/25 17:19 01/12/25 18:43 01/12/25 18:43 Temperature 99.6 F H Temperature Source Pulse Rate 96 Respiratory Rate Blood Pressure 143/81 H BP Systolic 143 BP Diastolic 81 Pulse Ox 01/12/25 18:45 01/12/25 19:13 01/12/25 19:13 Temperature Temperature Source Pulse Rate 97 Respiratory Rate 16 Blood Pressure 177/86 H BP Systolic 177 BP Diastolic 86 Pulse Ox 01/12/25 19:13 01/12/25 19:13 01/12/25 19:13 Temperature Temperature Source Temporal Pulse Rate Respiratory Rate 16 Blood Pressure BP Systolic BP Diastolic Pulse Ox 95 01/12/25 19:13 01/12/25 19:28 01/12/25 19:28 Temperature 99.1 F Temperature Source Pulse Rate 106 H Respiratory Rate Blood Pressure 161/80 H BP Systolic 161 BP Diastolic 80 Pulse Ox 01/12/25 19:43 01/12/25 19:43 01/12/25 19:48 Temperature Temperature Source Pulse Rate 96 101 H Respiratory Rate Blood Pressure BP Systolic BP Diastolic Pulse Ox 98 01/12/25 19:48 01/12/25 19:53 01/12/25 19:53 Temperature Temperature Source Pulse Rate 102 H Respiratory Rate Blood Pressure BP Systolic BP Diastolic Pulse Ox 97 97 01/12/25 19:56 01/12/25 19:56 01/12/25 19:58 Temperature Temperature Source Pulse Rate 98 102 H Respiratory Rate Blood Pressure 135/74 H BP Systolic 135 BP Diastolic 74 Pulse Ox 01/12/25 19:58 01/12/25 20:03 01/12/25 20:03 Temperature Temperature Source Pulse Rate 90 Respiratory Rate Blood Pressure BP Systolic BP Diastolic Pulse Ox 98 97 01/12/25 20:06 01/12/25 20:06 01/12/25 20:07 Temperature Temperature Source Pulse Rate 95 Respiratory Rate Blood Pressure 137/76 H BP Systolic 137 BP Diastolic 76 Pulse Ox 93 01/12/25 20:07 01/12/25 20:08 01/12/25 20:08 Temperature Temperature Source Pulse Rate 94 92 Respiratory Rate Blood Pressure BP Systolic BP Diastolic Pulse Ox 98 01/12/25 20:13 01/12/25 20:13 01/12/25 20:16 Temperature Temperature Source Pulse Rate 93 88 Respiratory Rate Blood Pressure BP Systolic BP Diastolic Pulse Ox 97 01/12/25 20:16 01/12/25 20:17 01/12/25 20:17 Temperature Temperature Source Pulse Rate 89 Respiratory Rate Blood Pressure 129/70 H BP Systolic 129 BP Diastolic 70 Pulse Ox 93 01/12/25 20:18 01/12/25 20:18 01/12/25 20:23 Temperature Temperature Source Pulse Rate 96 89 Respiratory Rate Blood Pressure BP Systolic BP Diastolic Pulse Ox 97 01/12/25 20:23 01/12/25 20:27 01/12/25 20:27 Temperature Temperature Source Pulse Rate 86 Respiratory Rate Blood Pressure 121/65 H BP Systolic 121 BP Diastolic 65 Pulse Ox 98 01/12/25 20:28 01/12/25 20:28 01/12/25 20:33 Temperature Temperature Source Pulse Rate 91 94 Respiratory Rate Blood Pressure BP Systolic BP Diastolic Pulse Ox 98 01/12/25 20:33 01/12/25 20:36 01/12/25 20:36 Temperature Temperature Source Pulse Rate 94 Respiratory Rate Blood Pressure 121/65 H BP Systolic 121 BP Diastolic 65 Pulse Ox 98 01/12/25 20:38 01/12/25 20:38 01/12/25 20:43 Temperature Temperature Source Pulse Rate 91 92 Respiratory Rate Blood Pressure BP Systolic BP Diastolic Pulse Ox 98 01/12/25 20:43 01/12/25 20:46 01/12/25 20:46 Temperature Temperature Source Pulse Rate 88 Respiratory Rate Blood Pressure 123/58 H BP Systolic 123 BP Diastolic 58 Pulse Ox 98 01/12/25 20:48 01/12/25 20:48 01/12/25 20:53 Temperature Temperature Source Pulse Rate 92 96 Respiratory Rate Blood Pressure BP Systolic BP Diastolic Pulse Ox 98 01/12/25 20:53 01/12/25 20:56 01/12/25 20:56 Temperature Temperature Source Pulse Rate 93 Respiratory Rate Blood Pressure 121/63 H BP Systolic 121 BP Diastolic 63 Pulse Ox 98 01/12/25 20:58 01/12/25 20:58 01/12/25 21:17 Temperature Temperature Source Pulse Rate 91 Respiratory Rate Blood Pressure 124/68 H BP Systolic 124 BP Diastolic 68 Pulse Ox 97 01/12/25 21:17 01/12/25 21:31 01/12/25 21:31 Temperature Temperature Source Pulse Rate 95 88 Respiratory Rate Blood Pressure 120/67 BP Systolic 120 BP Diastolic 67 Pulse Ox 01/12/25 21:47 01/12/25 21:47 01/12/25 22:02 Temperature Temperature Source Pulse Rate 81 Respiratory Rate Blood Pressure 123/59 H 116/71 BP Systolic 123 116 BP Diastolic 59 71 Pulse Ox 01/12/25 22:02 01/12/25 22:02 01/12/25 22:02 Temperature Temperature Source Temporal Pulse Rate 78 Respiratory Rate 16 Blood Pressure BP Systolic BP Diastolic Pulse Ox 01/12/25 22:02 01/12/25 22:06 01/12/25 22:06 Temperature 99.0 F Temperature Source Pulse Rate 82 Respiratory Rate Blood Pressure BP Systolic BP Diastolic Pulse Ox 99 01/12/25 22:11 01/12/25 22:11 01/12/25 22:16 Temperature Temperature Source Pulse Rate 81 88 Respiratory Rate Blood Pressure BP Systolic BP Diastolic Pulse Ox 99 01/12/25 22:16 01/12/25 22:16 01/12/25 22:16 Temperature Temperature Source Pulse Rate 82 Respiratory Rate Blood Pressure 123/76 H BP Systolic 123 BP Diastolic 76 Pulse Ox 99 01/12/25 22:21 01/12/25 22:21 01/12/25 22:26 Temperature Temperature Source Pulse Rate 87 89 Respiratory Rate Blood Pressure BP Systolic BP Diastolic Pulse Ox 98 01/12/25 22:26 01/12/25 22:31 01/12/25 22:31 Temperature Temperature Source Pulse Rate 90 Respiratory Rate Blood Pressure 126/72 H BP Systolic 126 BP Diastolic 72 Pulse Ox 98 01/12/25 22:31 01/12/25 22:36 01/12/25 22:36 Temperature Temperature Source Pulse Rate 96 Respiratory Rate Blood Pressure BP Systolic BP Diastolic Pulse Ox 99 99 01/12/25 22:41 01/12/25 22:41 01/12/25 22:46 Temperature Temperature Source Pulse Rate 85 93 Respiratory Rate Blood Pressure BP Systolic BP Diastolic Pulse Ox 98 01/12/25 22:46 01/12/25 23:45 01/12/25 23:45 Temperature Temperature Source Pulse Rate 89 Respiratory Rate Blood Pressure 133/79 H BP Systolic 133 BP Diastolic 79 Pulse Ox 99 Weight Weight: 180 lb Body Mass Index (BMI) 29.0 Physical Exam Const alert, oriented x3, no apparent distress and healthy appearing HEENT normocephalic and moist oral mucous membranes Head and Scalp: atraumatic Neck full ROM, no lymphadenopathy, supple and thyroid normal General: trachea midline Lymph Lymphatic: no lymphadenopathy noted Chest inspection of chest normal Resp normal respiratory effort Cardio regular rate GI soft to palpation and non-tender GI Narrative: gravid Inspection: gravid external exam normal Manual OB Exam: estimated gestational size appropriate, presentation cephalic, dilated, effaced and station Extremity normal to inspection General Extremity: Negative for edema Skin no rashes or lesions noted Neuro no focal motor deficits and deep tendon reflexes 2+ bilaterally Motor Exam: strength 5/5 throughout and clonus absent Psych mental status grossly normal Labs Labs Labs: Blood Type A POSITIVE Antibody Screen NEGATIVE Hct, (37-47) 37.3 % Hgb, (12.0-15.0) 12.7 g/dL Pap Smear Negative Obstetrics Ultrasound Syphilis Total Ab, (Nonreactive) Nonreactive Rubella IgG Antibody, (Nonreactive) REAC Hep Bs Antigen, (Nonreactive) Nonreactive Hepatitis C Antibody, (Nonreactive) Nonreactive Chlamydia DNA ([place]), (Negative) Negative N.gonorrhoeae DNA ([place]), (Negative) Negative HIV 1&2 Antibody, (Nonreactive) Nonreactive Glucose 1 Hr 50 gm, (70-140) 96 mg/dL Assessment & Plan (1) History of ectopic : COMMENT: currently NOB 06/17/24 (2) : QUALIFIERS: Weeks of gestation: 39 weeks Qualified Code(s): Z3A.39 - 39 weeks gestation of COMMENT: GBS neg, discussed NIPT & Carrier testing-declined. Nl anatomy US (3) Supervision of normal : QUALIFIERS: Normal : other normal Trimester: third trimester Qualified Code(s): Z34.83 - Encounter for supervision of other normal , third trimester COMMENT: PRR, , THEODORA 01/19/25, boy Derek Echols, Tino (4) Short interval between pregnancies complicating , antepartum: COMMENT: 05/2023 (5) Small for gestational age fetus affecting management of mother: (6) Gestational hypertension: PLAN: Plan Patient presents IOL, plan management for with pitocin/AROM. Pain management: open to epidural. GBS negative. Management of any complications: monitor bps I have reviewed the [facility] and made any clinically relevant updates.
[2025-01-13] MEDS: fentaNYL-bupivacaine (epidural) 100 ML BAG EPIDURAL (00:42)
[2025-01-13] MEDS: Amnioinfusion- 0.9% NS 1,000 ML IV.SOLN. 1000 ML INTRA-UTER (01:24)
--- NOTE | 2025-01-13 01:54 | EX.PCM.OBVAG ---
Assessment & Plan (1) History of ectopic : COMMENT: currently NOB 06/17/24 (2) : QUALIFIERS: Weeks of gestation: 39 weeks Qualified Code(s): Z3A.39 - 39 weeks gestation of COMMENT: GBS neg, discussed NIPT & Carrier testing-declined. Nl anatomy US (3) Supervision of normal : QUALIFIERS: Normal : other normal Trimester: third trimester Qualified Code(s): Z34.83 - Encounter for supervision of other normal , third trimester COMMENT: PRR, , THEODORA 01/19/25, didi Echols, Tino (4) Short interval between pregnancies complicating , antepartum: COMMENT: 05/2023 (5) Small for gestational age fetus affecting management of mother: (6) Gestational hypertension: (7) Vaginal delivery: COMMENT: sm iol ghtn 39 didi stark Maternal Data Information THEODORA Calculator Estimated Delivery Date Method Current WG Current Estimate 01/19/25 LMP (Certain) 39w 1d Other Estimates 01/17/25 Ultrasound #1 39w 3d 01/19/25 Ultrasound #2 39w 1d Vaginal Delivery Maternal Presentation Maternal Presentation: see assessment and plan Vaginal Delivery Information Procedure Performed: Spontaneous Vaginal Delivery Surgeon/Practitioner: Cassie Giordano Date of Procedure: 01/13/25 Pre-Procedure Diagnosis: see assessment and plan Post-Procedure Diagnosis: same Type of anesthesia: Epidural Estimated Blood Loss: 300 Findings Description of procedure: Patient began pushing and delivered the head in the PAU presentation. The head was delivered atraumatically and a loose nuchal cord ?1 was identified and easily reduced over the infant's head. The anterior and posterior shoulders delivered without complication followed by the rest of the and the infant was placed on the maternal abdomen. Delayed cord clamping was employed for approximately 60 seconds. Cord was clamped and cut and gentle traction was applied to the cord and the placenta delivered spontaneously immediately following it was noted to be intact with three-vessel cord. The perineum and vagina were inspected and noted to have no laceration. EBL was 300. Patient and tolerated delivery well. Presentation: Vertex Placental Delivery Description: Spontaneous Specimen collected: Yes Description of specimen(s) removed: placenta Compliance Quality Performance Analyst camp manager: No Post Vaginal Deli Medications given after delivery: Other (pitocin) Complication Complications: No Multi Select Codes Urinary/Genital Urinary/Genital CPT Codes: 99225 Vaginal Delivery [facility]
--- NOTE | 2025-01-13 01:57 | DCINST_ITS ---
Discharge Instructions DC O2, CPAP, BIPAP needs Home O2 Discharge instructions: No Dressing / Incision Discharge Activity: Return to Normal Activity, May Not Drive (while taking narcotic pain medications.) and May Shower May resume sexual activity in: 4-6 weeks Dressing / Incision Call your doctor if your incision/area has: Continuous Slow Oozing, Sudden Increased Bleeding, Increased Pain/ Swelling, Increased Redness and Foul Smelling Discharge Follow Up Care Please Follow Up With: Cassie Giordano MD When: Call [phone] to make an appointment with your doctor in 6 weeks. If you had elevated blood pressure or 4th degree laceration, you will need to be seen in 2 weeks. Test Results: Test results from this visit will be discussed in further detail at your follow- up appointment, if applicable. Discharge Plan Admission Admit Date/Time: 01/12/25 17:10 Attending Provider: Cassie Giordano Primary Care Provider: Care Physician,No Primary Discharge Orders/Prescriptions Prescriptions: No Action PNV-DHA 27 mg iron-1 mg -300 mg capsule PO Referrals / Follow Up: Care Physician,No Primary [Primary Care Provider, Medical]
[2025-01-13] MEDS: Oxytocin 15 Units/NS 250ml 15 UNITS/250 ML IV.SOLN 83 UNITS IV (02:20)
[2025-01-14] VITALS (8 sets, daily range): BP systolic 112–122; BP diastolic 62–64; PULSE 79–89; RESP 16; TEMP 36.7–37.1; O2SAT 98
--- NOTE | 2025-01-14 08:03 | PN.OBGYN_ITS ---
Subjective Subjective Patient doing well without complaints. Tolerating PO. Ambulating and voiding without difficulty. Feeding well. Denies chest pain, shortness of breath, calf pain/swelling, fevers, chills, lightheadedness. Objective Data Objective Data Vital Signs: Vital Signs Temp Pulse Resp BP Pulse Ox O2 Del Method 98.8 F 79 16 116/62 98 Room Air 01/14/25 07:34 01/14/25 07:34 01/14/25 07:34 01/14/25 07:34 01/14/25 07:34 01/14/25 07:34 Oxygen Delivery Method Room Air Weight: 180 lb Body Mass Index (BMI) 29.0 Intake & Output: Intake and Output for Last 24 Hours 01/12/25 01/13/25 01/14/25 23:59 23:59 23:59 Intake Total 269.66 / 269.66 1481.17 / 1481.17 Output Total 2100 / 2100 Balance 269.66 / 269.66 -618.83 / -618.83 Lab / Micro Data 01/12/25 16:00 01/12/25 16:00 ROS Constitutional Constitutional: Reports systems reviewed and no addt'l complaints, except as documented; Denies anorexia or headache(s) Cardiovascular Cardiovascular: Reports systems reviewed and no addt'l complaints, except as documented; Denies dizziness, dyspnea, nausea or tachypnea Respiratory/Chest Respiratory/Chest: Reports systems reviewed and no addt'l complaints, except as documented; Denies cough, dyspnea, shortness of breath at rest or tachypnea Gastrointestinal Gastrointestinal: Reports systems reviewed and no addt'l complaints, except as documented; Denies abdominal pain, constipation or nausea Genitourinary Genitourinary: Reports systems reviewed and no addt'l complaints, except as documented; Denies burning urination, difficulty urinating, dysuria, urinary frequency or urinary incontinence Musculoskeletal Musculoskeletal: Reports systems reviewed and no addt'l complaints, except as documented Integumentary Integumentary: Reports systems reviewed and no addt'l complaints, except as documented Neurologic Neurologic: Reports systems reviewed and no addt'l complaints, except as documented; Denies abnormal speech, dizziness or headache(s) Psychiatric Psychiatric: Reports systems reviewed and no addt'l complaints, except as documented Endocrine Endocrinology: Reports systems reviewed and no addt'l complaints, except as documented Hematologic/Lymphatic Hematologic/Lymphatic: Reports systems reviewed and no addt'l complaints, except as documented Physical Exam Const alert, oriented x3 and no apparent distress Neck full ROM Resp normal respiratory effort, normal air movement and no retractions Effort and Inspection: able to speak in complete sentences and symmetric chest movement GI soft to palpation Bladder / Kidney Exam: bladder normal to palpation Uterus Palpation: uterus fundus firm Extremity normal to inspection and full ROM Psych mental status grossly normal, thought process normal and cooperative Assessment & Plan (1) Vaginal delivery: COMMENT: sm iol ghtn 39 didi goeles PLAN: s/p PPD # 1 1. routine post delivery care 2. breast feeding- support given 3. rh positive 4. rubella immune 5. Discharge home (2) Gestational hypertension: (3) Small for gestational age fetus affecting management of mother: (4) Short interval between pregnancies complicating , antepartum: COMMENT: 05/2023 (5) Supervision of normal : QUALIFIERS: Normal : other normal T rimester: third trimester Qualified Code(s): Z34.83 - Encounter for supervision of other normal , third trimester COMMENT: PRR, , THEODORA 01/19/25, didi Echols, Tino (6) : QUALIFIERS: Weeks of gestation: 39 weeks Qualified Code(s): Z 3A.39 - 39 weeks gestation of COMMENT: GBS neg, discussed NIPT & Carrier testing-declined. Nl anatomy US (7) History of ectopic : COMMENT: currently NOB 06/17/24 Charges/Coding Multi Select Codes Urinary/Genital Urinary/Genital CPT Codes: No Charge
--- NOTE | 2025-01-14 14:34 | NURSING ---
1015- call placed to [facility]. Updated on BPs and HR being 116/62 and hr of 79 at 0730 and 122/64 and HR of 82 at 1000. POC is to give labetalol 100 mg.
--- NOTE | 2025-01-14 14:36 | NURSING ---
1400- call placed to [facility]. Pt asking if she should continue to take labetalol at home. [facility] updated on BPs. POC is for Pt to stop taking labetalol and follow up with a BP check in the office on friday. Information given to pt and pt educated on Pre e symptoms.
== END 2025-01-14 14:15 | disposition home or self-care (01) | DRG 807 ==
LOC: WPOUT 17:32 → WP 17:32
PROVIDERS: Admitting Provider Obstetrics & Gynecology; Referring Provider Obstetrics & Gynecology; Visit Provider Obstetrics & Gynecology
DX: O13.4 Gestational [pregnancy-induced] hypertension without significant proteinuria, complicating childbirth (principal); Z37.0 Single live birth; O36.5930 Maternal care for other known or suspected poor fetal growth, third trimester, not applicable or unspecified; N96 Recurrent pregnancy loss; Z3A.39 39 weeks gestation of pregnancy; Z80.41 Family history of malignant neoplasm of ovary; Z87.59 Personal history of other complications of pregnancy, childbirth and the puerperium; O69.81X0 Labor and delivery complicated by cord around neck, without compression, not applicable or unspecified; O99.893 Other specified diseases and conditions complicating puerperium
CPT/HCPCS: 59025; 59050; 82565; 82570; 84156; 84450; 84460; 84550; 85027; 86780; 86850; 86900; 86901; 99221; A4216; G0378